=== PATIENT | female | born 1965 | race Caucasian/White ===

== ENCOUNTER → 2017-05-31 | Outpatient (CLI) | payer OTHER ==
--- NOTE | 2017-05-31 10:49 | MR ---
EXAMINATION TYPE: MR lumbar spine wo con DATE OF EXAM: 05/31/2017 COMPARISON: NONE HISTORY: Low back pain per order. Pain for 5 years going into left lower extremity per patient. TECHNIQUE: Multiplanar, multisequence imaging of the lumbar spine is performed without IV contrast. FINDINGS: Survey images shows artifact left pelvis possibly from hip prosthesis. Sagittal images of t he lumbar spine show vertebral body heights and alignment to appear satisfactory. Multilevel disc shonna iccation is present. There is moderate to advanced disc space narrowing with heterogeneous diminished T1 and increased T2 signal consistent with Modic type I degenerative change L3-L4 level with fairly moderate anterior spurring. Posterior disc herniation is seen at this level on sagittal images. Smal l posterior disc herniation noted L4-L5 level on sagittal images. The conus medullaris is normal in p osition and signal ending at inferior L1 level. The bone marrow signal intensity is otherwise within normal limits. Axial images show the T12-L1 and L1-L2 levels all to appear within normal limits. Axial images at L2-L3 level show small focal left foraminal disc protrusion causing mild left-sided a nterior inferior neural foraminal narrowing on axial image 18 and sagittal image 4. Spinal canal is p reserved. Right-sided neural foramen is patent. Axial images at L3-L4 level show moderate broad disc bulge effacing anterior thecal sac and causing m oderate to severe right and moderate left-sided anterior inferior neural foraminal narrowing. Encroac hment on right L3 nerve is seen on sagittal image 11. There is possible encroachment along inferior m argin left L3 nerve on sagittal image 2. Axial images at the L4-L5 level show mild broad disc bulge with left lateral disc protrusion componen t, there is mild to moderate bilateral facet degenerative change. There is asymmetric moderate left-s ided anterior inferior neural foraminal narrowing. There is probable encroachment along the anterior inferior left L4 nerve on sagittal image 3. Right-sided neural foramen is patent. Axial images at L5-S1 level show mild facet degenerative changes bilaterally. There is central disc p rotrusion seen but spinal canal is preserved and bilateral neural foramina are patent. Gallbladder has distended margins. No intraluminal gallstones are clearly seen. IMPRESSION: Multilevel degenerative changes in lumbar spine as detailed above, most prominent finding s L3-L4 level encroaching right L3 nerve is observed. There is suggestion of inferior encroachment le ft L3 and L4 nerves at L3-L4 and L4-L5 levels due to disc herniations.
== END | disposition home or self-care (01) ==
LOC: RADMRIMAIN 09:49
PROVIDERS: ATTEND Physician Assistant
DX: M51.26 Other intervertebral disc displacement, lumbar region (principal); M47.816 Spondylosis without myelopathy or radiculopathy, lumbar region
CPT/HCPCS: 72148

== ENCOUNTER 2017-09-21 00:22 | Emergency (ER) | payer OTHER ==
[2017-09-21 01:57] LABS: Amphetamine Screen,Urine Not Detected (NotDetected); Barbiturate Screen,Urine Not Detected (NotDetected); Benzodiazepines Screen,Urine Detected (NotDetected); Cocaine Screen,Urine Not Detected (NotDetected); Methadone Screen, Urine Not Detected (NotDetected); Opiate Screen,Urine Not Detected (NotDetected); Oxycodone Screen, Urine Not Detected (NotDetected); Phencyclidine Screen,Urine Not Detected (NotDetected); Tricyclic Antidepressant,Urine Not Detected (NotDetected); Urn Cannabinoid Scrn Detected (NotDetected)
--- NOTE | 2017-09-21 02:14 | XR ---
EXAMINATION TYPE: XR Hip LT and AP Pelvis DATE OF EXAM: 09/21/2017 COMPARISON: NONE HISTORY: Left hip pain TECHNIQUE: 3 views FINDINGS: There is collapse of the femoral head consistent with chronic avascular necrosis. There is sclerosis and subchondral cystic change on both sides of the irregular joint space. The right proximal femur an d hip joint are intact. There is a plate with screws fixating the left acetabulum. The pelvic ring is intact. I see no acute fracture. CONCLUSION: There is apparent old left acetabular fracture. Collapse of the left femoral head. No acute fracture seen.
[2017-09-21 03:21] LABS: Basophils # (A) 0.1 k/uL (0-0.2); Basophils % (A) 1 %; Eosinophils # (A) 0.3 k/uL (0-0.7); Eosinophils % (A) 5 %; HCT 47.6 % (34.0-46.0); HGB 15.3 gm/dL (11.4-16.0); Lymphocytes # (A) 1.9 k/uL (1.0-4.8); Lymphocytes % (A) 35 %; MCH 29.4 pg (25.0-35.0); MCHC 32.2 g/dL (31.0-37.0); MCV 91.5 fL (80.0-100.0); Mean Platelet Volume 7.1; Monocytes # (A) 0.3 k/uL (0-1.0); Monocytes % (A) 5 %; Neutrophils # (A) 2.8 k/uL (1.3-7.7); Neutrophils % (A) 51 %; Platelet Count 266 k/uL (150-450); RDW 13.7 % (11.5-15.5); WBC 5.5 k/uL (3.8-10.6)
[2017-09-21 03:26] LABS: Amylase 38 U/L (30-110); Lipase 94 U/L (23-300)
[2017-09-21 03:28] LABS: Alcohol 107 mg/dL
[2017-09-21 03:37] LABS: ALT 28 U/L (9-52); AST 27 U/L (14-36); Albumin 4.2 g/dL (3.5-5.0); Alkaline Phosphatase 80 U/L (38-126); Anion Gap 19 mmol/L; Blood Urea Nitrogen 11 mg/dL (7-17); Calcium 9.9 mg/dL (8.4-10.2); Carbon Dioxide 18 mmol/L (22-30); Chloride 112 mmol/L (98-107); Glucose 89 mg/dL (74-99); Potassium 3.7 mmol/L (3.5-5.1); Sodium 149 mmol/L (137-145); Total Bilirubin 0.2 mg/dL (0.2-1.3); Total Protein 7.3 g/dL (6.3-8.2)
[2017-09-21 06:18] VITALS: BP 135/79; PULSE 100; TEMP 98.2
[2017-09-21] MEDS ORDERED: IBUPROFEN 600 MG TAB PO STA (06:24)
[2017-09-21] MEDS ORDERED: SODIUM CHLORIDE 0.9% 500 ML IV STA (06:24)
[2017-09-21 06:27] VITALS: RESP 14
--- NOTE | 2017-09-21 06:46 | ED ---
Psych HPI - General Chief Complaint: Psychiatric Symptoms Stated Complaint: pain all over Time Seen by Provider: 09/21/17 01:09 Source: patient Mode of arrival: wheelchair - History of Present Illness Initial Comments: This patient is 52-year-old woman presenting for psychiatric evaluation. The patient states that she is becoming concerned about her drinking. She has also had some thoughts recently that she would be better off area she states that underlying all this is that she has chronic left hip pain following a fracture of her left acetabulum around 2 years ago. Patient states that she was initially on narcotic pain medicine but that this was stopped and number of months ago, and she is currently using alcohol to help her deal with the pain. She is drinking around a pint of tequila per day. The patient states she has not attempted to harm herself nor does she have an active suicidal plan but she does passively feel that she may be better off . MD Complaint: feels depressed -: month(s) Associated Psychiatric Symptoms: depression Quality: constant Improves With: none Worsens With: none Context: recent alcohol abuse Associated Symptoms: denies other symptoms - Related Data Home Medications Medication Instructions Recorded Confirmed Butalb/Acetaminophen/Caffeine 1 each PO TID 12/26/13 12/26/13 [Fioricet 50-325-40 mg Tablet] DULoxetine HCL [Cymbalta] 60 mg PO BID 12/26/13 12/26/13 Dextroamphetamine/Amphetamine 10 mg PO DAILY 12/26/13 12/26/13 [Adderall] Gabapentin [Neurontin] 300 mg PO TID 12/26/13 12/26/13 Hydrocodone/Acetaminophen [Vicodin 1 each PO Q6HR PRN 12/26/13 12/26/13 5-300 mg Tablet] traMADol HCL [Ultram] 50 mg PO Q6HR PRN 12/26/13 12/26/13 Allergies Allergy/AdvReac Type Severity Reaction Status Date / Time No Known Allergies Allergy Verified 12/26/13 00:56 Review of Systems ROS Statement: Those systems with pertinent positive or pertinent negative responses have been documented in the HPI. ROS Other: All systems not noted in ROS Statement are negative. Constitutional: Denies: fever, chills, weakness Respiratory: Denies: cough, dyspnea Cardiovascular: Denies: chest pain, palpitations Gastrointestinal: Denies: abdominal pain, vomiting, diarrhea Musculoskeletal: Reports: as per HPI, arthralgia. Denies: back pain Skin: Denies: rash Neurological: Denies: headache, weakness, numbness Past Medical History Past Medical History: Diabetes Mellitus Additional Past Medical History / Comment(s): back pain, migraines, fibromyalgia History of Any Multi-Drug Resistant Organisms: Unobtainable Past Surgical History: Orthopedic Surgery Past Psychological History: Anxiety, Depression Smoking Status: Current every day smoker Past Alcohol Use History: Daily Past Drug Use History: Cocaine General Exam Limitations: no limitations General appearance: alert, in no apparent distress, appears intoxicated Head exam: Present: atraumatic, normocephalic Eye exam: Present: normal appearance. Absent: scleral icterus, conjunctival injection Neck exam: Present: normal inspection, full ROM Respiratory exam: Present: normal lung sounds bilaterally. Absent: respiratory distress, wheezes, rales, rhonchi, stridor Cardiovascular Exam: Present: regular rate, normal rhythm, normal heart sounds. Absent: systolic murmur, diastolic murmur, rubs, gallop GI/Abdominal exam: Present: soft. Absent: distended, tenderness, guarding, rebound, rigid, mass Extremities exam: Present: normal inspection, normal capillary refill. Absent: full ROM (Limited range of motion left hip), pedal edema, calf tenderness Back exam: Present: normal inspection. Absent: CVA tenderness (R), CVA tenderness (L) Neurological exam: Present: alert Psychiatric exam: Present: depressed, anxious, suicidal ideation. Absent: flat affect, manic, homicidal ideation Skin exam: Present: warm, dry, intact, normal color. Absent: rash Course Vital Signs 09/21/17 09/21/17 09/21/17 00:47 03:00 06:00 Temperature 97.3 F L 98.2 F Pulse Rate 98 95 100 Respiratory 16 16 16 Rate Blood Pressure 139/82 130/66 135/79 O2 Sat by Pulse 97 98 96 Oximetry 09/21/17 06:10 Temperature 98.2 F Pulse Rate 100 Respiratory 14 Rate Blood Pressure 135/79 O2 Sat by Pulse 96 Oximetry Medical Decision Making - Lab Data Result diagrams: 09/21/17 02:50 09/21/17 02:50 Lab Results 09/21/17 09/21/17 09/21/17 Range/Units 01:36 02:50 02:50 WBC 5.5 (3.8-10.6) k/uL RBC 5.20 (3.80-5.40) m/uL Hgb 15.3 (11.4-16.0) gm/dL Hct 47.6 H (34.0-46.0) % MCV 91.5 (80.0-100.0) fL MCH 29.4 (25.0-35.0) pg MCHC 32.2 (31.0-37.0) g/dL RDW 13.7 (11.5-15.5) % Plt Count 266 (150-450) k/uL Neutrophils % 51 % Lymphocytes % 35 % Monocytes % 5 % Eosinophils % 5 % Basophils % 1 % Neutrophils # 2.8 (1.3-7.7) k/uL Lymphocytes # 1.9 (1.0-4.8) k/uL Monocytes # 0.3 (0-1.0) k/uL Eosinophils # 0.3 (0-0.7) k/uL Basophils # 0.1 (0-0.2) k/uL Sodium (137-145) mmol/L Potassium (3.5-5.1) mmol/L Chloride (98-107) mmol/L Carbon Dioxide (22-30) mmol/L Anion Gap mmol/L BUN (7-17) mg/dL Creatinine (0.52-1.04) mg/dL Est GFR (CKD-EPI)AfAm (>60 ml/min/1.73 sqM) Est GFR (CKD-EPI)NonAf (>60 ml/min/1.73 sqM) Glucose (74-99) mg/dL Calcium (8.4-10.2) mg/dL Total Bilirubin (0.2-1.3) mg/dL AST (14-36) U/L ALT (9-52) U/L Alkaline Phosphatase (38-126) U/L Total Protein (6.3-8.2) g/dL Albumin (3.5-5.0) g/dL Amylase 38 (30-110) U/L Lipase 94 (23-300) U/L Urine Opiates Screen Not Detected (NotDetected) Ur Oxycodone Screen Not Detected (NotDetected) Urine Methadone Screen Not Detected (NotDetected) Ur Propoxyphene Screen Not Detected (NotDetected) Ur Barbiturates Screen Not Detected (NotDetected) U Tricyclic Antidepress Not Detected (NotDetected) Ur Phencyclidine Scrn Not Detected (NotDetected) Ur Amphetamines Screen Not Detected (NotDetected) U Methamphetamines Scrn Not Detected (NotDetected) U Benzodiazepines Scrn Detected H (NotDetected) Urine Cocaine Screen Not Detected (NotDetected) U Marijuana (THC) Screen Detected H (NotDetected) Serum Alcohol 107 mg/dL 09/21/17 Range/Units 02:50 WBC (3.8-10.6) k/uL RBC (3.80-5.40) m/uL Hgb (11.4-16.0) gm/dL Hct (34.0-46.0) % MCV (80.0-100.0) fL MCH (25.0-35.0) pg MCHC (31.0-37.0) g/dL RDW (11.5-15.5) % Plt Count (150-450) k/uL Neutrophils % % Lymphocytes % % Monocytes % % Eosinophils % % Basophils % % Neutrophils # (1.3-7.7) k/uL Lymphocytes # (1.0-4.8) k/uL Monocytes # (0-1.0) k/uL Eosinophils # (0-0.7) k/uL Basophils # (0-0.2) k/uL Sodium 149 H (137-145) mmol/L Potassium 3.7 (3.5-5.1) mmol/L Chloride 112 H (98-107) mmol/L Carbon Dioxide 18 L (22-30) mmol/L Anion Gap 19 mmol/L BUN 11 (7-17) mg/dL Creatinine 0.56 (0.52-1.04) mg/dL Est GFR (CKD-EPI)AfAm >90 (>60 ml/min/1.73 sqM) Est GFR (CKD-EPI)NonAf >90 (>60 ml/min/1.73 sqM) Glucose 89 (74-99) mg/dL Calcium 9.9 (8.4-10.2) mg/dL Total Bilirubin 0.2 (0.2-1.3) mg/dL AST 27 (14-36) U/L ALT 28 (9-52) U/L Alkaline Phosphatase 80 (38-126) U/L Total Protein 7.3 (6.3-8.2) g/dL Albumin 4.2 (3.5-5.0) g/dL Amylase (30-110) U/L Lipase (23-300) U/L Urine Opiates Screen (NotDetected) Ur Oxycodone Screen (NotDetected) Urine Methadone Screen (NotDetected) Ur Propoxyphene Screen (NotDetected) Ur Barbiturates Screen (NotDetected) U Tricyclic Antidepress (NotDetected) Ur Phencyclidine Scrn (NotDetected) Ur Amphetamines Screen (NotDetected) U Methamphetamines Scrn (NotDetected) U Benzodiazepines Scrn (NotDetected) Urine Cocaine Screen (NotDetected) U Marijuana (THC) Screen (NotDetected) Serum Alcohol mg/dL Disposition Clinical Impression: Mood disorder, Alcohol intoxication, Chronic left hip pain Disposition: HOME SELF-CARE Condition: Fair Instructions: Mood Disorders (ED) Is patient prescribed a controlled substance at d/c from ED?: No Referrals: Araceli Elizabeth MD [Primary Care Provider] - 1-2 days
== END 2017-09-21 07:22 | disposition home or self-care (01) ==
LOC: EC 00:22
DX: F32.9 Major depressive disorder, single episode, unspecified (principal); F10.120 Alcohol abuse with intoxication, uncomplicated; M25.552 Pain in left hip; G89.29 Other chronic pain; M79.7 Fibromyalgia; G43.909 Migraine, unspecified, not intractable, without status migrainosus; F41.9 Anxiety disorder, unspecified; F17.200 Nicotine dependence, unspecified, uncomplicated; Z86.69 Personal history of other diseases of the nervous system and sense organs; Z79.899 Other long term (current) drug therapy; Z87.81 Personal history of (healed) traumatic fracture
CPT/HCPCS: 36415; 73502; 80053; 80306; 80320; 82075; 82150; 83690; 85025; 96360; 99284

== ENCOUNTER 2021-11-28 07:11 | Emergency (ER) | payer OTHER ==
[2021-11-28 07:27] VITALS: RESP 18; TEMP 99
[2021-11-28] MEDS ORDERED: MORPHINE SULFATE 4 MG/ML SYRINGE IV STA (07:37)
[2021-11-28] MEDS ORDERED: diphenhydrAMINE 50 MG/ML 1 ML VIAL IVP STA (07:37)
[2021-11-28] MEDS ORDERED: PANTOPRAZOLE 40 MG/10 ML VIAL IVP STA (07:37)
[2021-11-28] MEDS ORDERED: SODIUM CHLORIDE 0.9% 1,000 ML IV STA (07:37)
[2021-11-28] MEDS ORDERED: ONDANSETRON 4 MG/2 ML VIAL IVP STA (07:37)
[2021-11-28 07:55] LABS: Basophils # (A) 0.1 k/uL (0-0.2); Basophils % (A) 2 %; Eosinophils # (A) 0.1 k/uL (0-0.7); Eosinophils % (A) 2 %; HCT 44.9 % (34.0-46.0); HGB 14.8 gm/dL (11.4-16.0); Lymphocytes # (A) 0.9 k/uL (1.0-4.8); Lymphocytes % (A) 18 %; MCH 33.6 pg (25.0-35.0); MCV 101.6 fL (80.0-100.0); Macrocytosis Slight; Mean Platelet Volume 7.5; Monocytes # (A) 0.6 k/uL (0-1.0); Monocytes % (A) 11 %; Neutrophils # (A) 3.5 k/uL (1.3-7.7); Neutrophils % (A) 65 %; Platelet Count 233 k/uL (150-450); RBC 4.42 m/uL (3.80-5.40); RDW 15.1 % (11.5-15.5); WBC 5.3 k/uL (3.8-10.6)
[2021-11-28 08:05] LABS: ALT 101 U/L (4-34); AST 182 U/L (14-36); African American GFR (CKD) >90 (>60 ml/min/1.73 sqM); Albumin 4.8 g/dL (3.5-5.0); Alcohol <10 mg/dL; Alkaline Phosphatase 109 U/L (38-126); Amylase 59 U/L (30-110); Anion Gap 8 mmol/L; Blood Urea Nitrogen 6 mg/dL (7-17); Calcium 9.5 mg/dL (8.4-10.2); Carbon Dioxide 22 mmol/L (22-30); Chloride 105 mmol/L (98-107); Glucose 106 mg/dL (74-99); Lipase 188 U/L (23-300); Non-African American GFR(CKD) >90 (>60 ml/min/1.73 sqM); Potassium 3.9 mmol/L (3.5-5.1); Sodium 135 mmol/L (137-145); Total Bilirubin 0.4 mg/dL (0.2-1.3); Total Protein 7.5 g/dL (6.3-8.2)
[2021-11-28 08:06] LABS: INR 0.9 (<1.2); Partial Thromboplastin Time 22.8 sec (22.0-30.0); Prothrombin Time 9.8 sec (9.0-12.0)
--- NOTE | 2021-11-28 08:42 | US ---
EXAMINATION TYPE: US gallbladder DATE OF EXAM: 11/28/2021 COMPARISON: NONE CLINICAL HISTORY: n/v epigastric/RUQ abd pain. nausea and vomiting EXAM MEASUREMENTS: Liver Length: 15.2 cm Gallbladder Wall: .1 cm CBD: .4 cm Right Kidney: 10.2 x 4.1 x 4.0 cm Pancreas: Duct visualized .2 cm. Liver: wnl Gallbladder: No stones seen Evidence for sonographic Hylton's sign: No CBD: wnl Right Kidney: wnl IMPRESSION: No discrete abnormality seen.
[2021-11-28] MEDS ORDERED: MAG HYDROX/AL HYDROX/SIMETH 30 ML, HYOSCYAMINE ELIXIR 10 ML, LIDOCAINE VISCOUS 2% 10 ML PO STA ×3 (10:17)
--- NOTE | 2021-11-28 10:17 | CT ---
EXAMINATION TYPE: CT abdomen pelvis w con DATE OF EXAM: 11/28/2021 COMPARISON: None HISTORY: Abdominal pain CT DLP: 569.7 mGycm CONTRAST: CT scan of the abdomen and pelvis is performed without Oral Contrast and with IV Contrast, patient in jected with 100 mL of Isovue 300. FINDINGS: LUNG BASES-: Small area of nodular infiltrate left lower lobe posteriorly. LIVER/GB: No calcified gallstones. Mild hepatic steatosis. No space occupying hepatic lesion. Bili reji tree is of normal caliber. PANCREAS: No inflammation. No distinct mass. SPLEEN: No splenic enlargement. No lesion seen. ADRENALS: No nodule. No thickening. KIDNEYS/BLADDER: No hydronephrosis. No nephrolithiasis. No distinct renal mass. Urinary bladder g rossly unremarkable. BOWEL: Normal appendix. Wall thickening gastric pylorus could reflect underlying gastritis correlate clinically. Otherwise Normal bowel caliber or inflammation. GENITAL ORGANS: Hysterectomy changes noted. No adnexal masses seen. LYMPH NODES: No greater than 1cm abdominal or pelvic lymph nodes are appreciated. AORTA: No significant abnormality. OSSEOUS STRUCTURES: Postoperative change of the left hemipelvis. Streak artifacts limits evaluation o f the pelvis. Remote fractures right sided pubic rami. Severe degenerative change L4-5. OTHER: No significant additional abnormality is seen. IMPRESSION: 1. Wall thickening gastric pylorus could reflect underlying gastritis correlate clinically. 2.Small area of nodular infiltrate left lower lobe posteriorly.
--- NOTE | 2021-11-28 10:18 | ED ---
General Adult HPI - General Chief complaint: Nausea/Vomiting/Diarrhea Stated complaint: Nausea/abd pain/vomiting Time Seen by Provider: 11/28/21 07:30 Source: patient, RN notes reviewed, old records reviewed Mode of arrival: ambulatory Limitations: no limitations - History of Present Illness Initial comments: Patient is a 56-year-old female with no significant past medical history except for polysubstance abuse presents emergency Department complaining of chronic epigastric abdominal discomfort associated with nausea and vomiting. States this is on a daily basis. Nurse's nonbilious emesis. Still tolerates oral intake. Denies any diarrhea. Denies any fevers, chills, sick contacts, chest pain. His no other acute complaints at this time. Was brought to the emergency department by a friend today after suffering to this for the last 6 months. No acute change in symptoms. No other acute complaints at this time. Denies any fevers or chills. Has not followed up with her PCP. Denies any history of intra-abdominal surgery. - Related Data Home Medications Medication Instructions Recorded Confirmed Butalb/Acetaminophen/Caffeine 1 each PO TID 12/26/13 12/26/13 [Fioricet 50-325-40 mg Tablet] DULoxetine HCL [Cymbalta] 60 mg PO BID 12/26/13 12/26/13 Dextroamphetamine/Amphetamine 10 mg PO DAILY 12/26/13 12/26/13 [Adderall] Gabapentin [Neurontin] 300 mg PO TID 12/26/13 12/26/13 Hydrocodone/Acetaminophen [Vicodin 1 each PO Q6HR PRN 12/26/13 12/26/13 5-300 mg Tablet] traMADol HCL [Ultram] 50 mg PO Q6HR PRN 12/26/13 12/26/13 Previous Rx's Medication Instructions Recorded Famotidine 20 mg PO DAILY 14 Days #14 tablet 11/28/21 Mag Hydrox/Al Hydrox/Simeth 30 ml PO BID #300 ml 11/28/21 [Maalox] Ondansetron Odt [Zofran Odt] 4 mg PO Q8HR PRN 3 Days #9 tab 11/28/21 Allergies Allergy/AdvReac Type Severity Reaction Status Date / Time No Known Allergies Allergy Verified 11/28/21 07:24 Review of Systems ROS Statement: Those systems with pertinent positive or pertinent negative responses have been documented in the HPI. Review of Systems: CONST: Denies fever EYES: Denies blurry vision ENT: Denies nasal congestion C/V: Denies Chest pain RESP: Denies shortness of breath GI: Endorses abdominal pain : Denies dysuria SKIN: Denies rash. MSK: Denies joint pain. NEURO: Denies headache ROS Other: All systems not noted in ROS Statement are negative. Past Medical History Past Medical History: Diabetes Mellitus Additional Past Medical History / Comment(s): back pain, migraines, fibromyalgia History of Any Multi-Drug Resistant Organisms: None Reported Past Surgical History: Orthopedic Surgery Past Psychological History: Anxiety, Depression Smoking Status: Current every day smoker Past Alcohol Use History: Daily Past Drug Use History: Cocaine, Marijuana General Exam - General Exam Comments Initial Comments: General: Appears in no acute distress. HEAD: Normal with no signs of head trauma. EYES: PERRLA, EOMI, conjunctiva normal, no discharge. ENT: Hearing grossly intact, normal oropharynx. RESPIRATORY: Clear breath sounds bilaterally. No wheezes, rales, or rhonchi. C/V: Regular rate and rhythm. S1 and S2 auscultated, no edema, peripheral pulses 2+ and intact throughout ABD: Abdomen is soft, nondistended. Mild tenderness to palpation in the epigastric region. No guarding. No rebound tenderness. No peritoneal signs. EXT: Normal range of motion, no obvious deformity SKIN: No rashes or lesions observed on exposed skin. NEURO: Alert and oriented 4. No focal deficits. Limitations: no limitations Course Vital Signs 11/28/21 11/28/21 07:25 10:27 Temperature 99 F Pulse Rate 109 H 83 Respiratory 18 18 Rate Blood Pressure 156/79 145/89 O2 Sat by Pulse 96 99 Oximetry Medical Decision Making - Medical Decision Making Based on the patient's presentation and physical exam, I'm concerned for acute intra-abdominal process for her cannot rule out atypical ACS presentation. Therefore we will obtain abdominal laboratory studies, cardiac workup. She was in agreement with this plan. Will be symptomatically treated. Vital signs within normal limits and stable. EKG shows no signs of acute ischemia. Laboratory studies are remarkable for slightly increased AST and ALT of 182 and 101. This is in the setting of chronic alcohol use. Troponin is undetectable. Remainder the labs are unremarkable. Patient's chest x-ray reveals a left lower lobe home and a nodule. Call that her ultrasound is unremarkable. Abdominal and pelvic CT rev eals findings suggestive of gastritis in addition to the pulmonary nodule. On reevaluation, I spoke to patient regarding the findings. She is feeling improved. She is tolerating oral intake. Would like to go home and not wait for the urinalysis which I think is reasonable. I updated her on her pulmonary nodule as well as the suspected diagnosis of gastritis. Recommended decreasing the polysubstance abuse. She was in agreement this plan. I will provide the patient with a prescription for Zofran, Maalox, famotidine. I instructed the patient to follow up with their PCP in the next 3 days. [I provided contact information for follow up with] PCP, Gabriele. I explained that the patient should return to the emergency department if they experience any worsening symptoms. Strict return precautions were discussed with the patient. The patient expressed understanding of these instructions. I answered all questions that the patient had. The patient was discharged home in good con dition with their prescriptions and follow up information. - Lab Data Result diagrams: 11/28/21 07:52 11/28/21 07:52 Lab Results 11/28/21 11/28/21 11/28/21 Range/Units 07:52 07:52 07:52 WBC 5.3 (3.8-10.6) k/uL RBC 4.42 (3.80-5.40) m/uL Hgb 14.8 (11.4-16.0) gm/dL Hct 44.9 (34.0-46.0) % MCV 101.6 H (80.0-100.0) fL MCH 33.6 (25.0-35.0) pg MCHC 33.0 (31.0-37.0) g/dL RDW 15.1 (11.5-15.5) % Plt Count 233 (150-450) k/uL MPV 7.5 Neutrophils % 65 % Lymphocytes % 18 % Monocytes % 11 % Eosinophils % 2 % Basophils % 2 % Neutrophils # 3.5 (1.3-7.7) k/uL Lymphocytes # 0.9 L (1.0-4.8) k/uL Monocytes # 0.6 (0-1.0) k/uL Eosinophils # 0.1 (0-0.7) k/uL Basophils # 0.1 (0-0.2) k/uL Macrocytosis Slight PT 9.8 (9.0-12.0) sec INR 0.9 (<1.2) APTT 22.8 (22.0-30.0) sec Sodium 135 L (137-145) mmol/L Potassium 3.9 (3.5-5.1) mmol/L Chloride 105 (98-107) mmol/L Carbon Dioxide 22 (22-30) mmol/L Anion Gap 8 mmol/L BUN 6 L (7-17) mg/dL Creatinine 0.64 (0.52-1.04) mg/dL Est GFR (CKD-EPI)AfAm >90 (>60 ml/min/1.73 sqM) Est GFR (CKD-EPI)NonAf >90 (>60 ml/min/1.73 sqM) Glucose 106 H (74-99) mg/dL Plasma Lactic Acid Nic (0.7-2.0) mmol/L Calcium 9.5 (8.4-10.2) mg/dL Total Bilirubin 0.4 (0.2-1.3) mg/dL AST 182 H (14-36) U/L ALT 101 H (4-34) U/L Alkaline Phosphatase 109 (38-126) U/L Troponin I (0.000-0.034) ng/mL Total Protein 7.5 (6.3-8.2) g/dL Albumin 4.8 (3.5-5.0) g/dL Amylase 59 (30-110) U/L Lipase 188 (23-300) U/L Serum Alcohol <10 mg/dL 11/28/21 11/28/21 Range/Units 07:52 07:52 WBC (3.8-10.6) k/uL RBC (3.80-5.40) m/uL Hgb (11.4-16.0) gm/dL Hct (34.0-46.0) % MCV (80.0-100.0) fL MCH (25.0-35.0) pg MCHC (31.0-37.0) g/dL RDW (11.5-15.5) % Plt Count (150-450) k/uL MPV Neutrophils % % Lymphocytes % % Monocytes % % Eosinophils % % Basophils % % Neutrophils # (1.3-7.7) k/uL Lymphocytes # (1.0-4.8) k/uL Monocytes # (0-1.0) k/uL Eosinophils # (0-0.7) k/uL Basophils # (0-0.2) k/uL Macrocytosis PT (9.0-12.0) sec INR (<1.2) APTT (22.0-30.0) sec Sodium (137-145) mmol/L Potassium (3.5-5.1) mmol/L Chloride (98-107) mmol/L Carbon Dioxide (22-30) mmol/L Anion Gap mmol/L BUN (7-17) mg/dL Creatinine (0.52-1.04) mg/dL Est GFR (CKD-EPI)AfAm (>60 ml/min/1.73 sqM) Est GFR (CKD-EPI)NonAf (>60 ml/min/1.73 sqM) Glucose (74-99) mg/dL Plasma Lactic Acid Nic 1.2 (0.7-2.0) mmol/L Calcium (8.4-10.2) mg/dL Total Bilirubin (0.2-1.3) mg/dL AST (14-36) U/L ALT (4-34) U/L Alkaline Phosphatase (38-126) U/L Troponin I <0.012 (0.000-0.034) ng/mL Total Protein (6.3-8.2) g/dL Albumin (3.5-5.0) g/dL Amylase (30-110) U/L Lipase (23-300) U/L Serum Alcohol mg/dL - EKG Data -: EKG Interpreted by Me EKG Comments: 12-lead Electrocardiogram Interpretation Note EKG was reviewed and interpreted by myself. 12-lead ECG performed at 0754 is interpreted by me as revealing normal sinus rhythm at a rate of 90 beats per minute. [place] is normal.. ND Intervals 101 ms, QRS duration is 87 ms, QTc is 420 ms.. There were no ST or T wave abnormalities to suggest myocardial ischemia or injury. R wave progression across the precordium was satisfactory. By my interpretation this EKG is non-diagnostic for acute ischemia. Disposition Clinical Impression: Nausea & vomiting, Gastritis, Pulmonary nodule Disposition: HOME SELF-CARE Condition: Good Instructions (If sedation given, give patient instructions): Acute Nausea and Vomiting (ED), Pulmonary Nodules (ED) Prescriptions: Famotidine 20 mg PO DAILY 14 Days #14 tablet Mag Hydrox/Al Hydrox/Simeth [Maalox] 30 ml PO BID #300 ml Ondansetron Odt [Zofran Odt] 4 mg PO Q8HR PRN 3 Days #9 tab PRN Reason: Nausea Is patient prescribed a controlled substance at d/c from ED?: No Referrals: None,Stated [Primary Care Provider] - 1-2 days Tj Donato [STAFF PHYSICIAN] - 1-2 days Arely Suazo MD [STAFF PHYSICIAN] - 1-2 days Time of Disposition: 10:15
--- NOTE | 2021-11-28 10:19 | XR ---
EXAMINATION TYPE: XR chest 2V DATE OF EXAM: 11/28/2021 COMPARISON: 12/26/2013 HISTORY: Shortness of breath TECHNIQUE: Frontal and lateral views of the chest are obtained. FINDINGS: Scattered senescent parenchymal changes noted. Hyperinflation compatible with COPD. No evidence for infiltrate. No evidence for atelectasis. Heart size is stable. Mediastinal structures are stable and grossly unremarkable. No evidence for hilar prominence. Degenerative changes dorsal spine. IMPRESSION: 1. No evidence for acute pulmonary disease.
[2021-11-28 10:34] VITALS: BP 145/89; PULSE 83
== END 2021-11-28 11:21 | disposition home or self-care (01) ==
LOC: EC 07:11
DX: F19.10 Other psychoactive substance abuse, uncomplicated (principal); K29.70 Gastritis, unspecified, without bleeding; E11.9 Type 2 diabetes mellitus without complications; F17.200 Nicotine dependence, unspecified, uncomplicated; R11.2 Nausea with vomiting, unspecified
CPT/HCPCS: 36415; 93005; 80053; 82150; 83605; 83690; 84484; 85025; 85610; 85730; 71046; 76705; 74177; 99284; 96374; 96375; 96361; G0480; J2270; J1200; J2405; C9113; Q9967; 80320

== ENCOUNTER 2023-10-19 19:59 | Inpatient (IN) | payer OTHER ==
[2023-10-19] MEDS: LORazepam 2 MG/ML INJ IM STA (20:25)
[2023-10-19 21:29] LABS: Basophils % (A) 0 %; Eosinophils # (A) 0.2 k/uL (0-0.7); Eosinophils % (A) 2 %; HCT 41.3 % (34.0-46.0); HGB 14.3 gm/dL (11.4-16.0); Lymphocytes # (A) 0.5 k/uL (1.0-4.8); Lymphocytes % (A) 6 %; MCH 33.3 pg (25.0-35.0); MCHC 34.7 g/dL (31.0-37.0); MCV 96.1 fL (80.0-100.0); Mean Platelet Volume 8.7; Monocytes # (A) 0.4 k/uL (0-1.0); Monocytes % (A) 5 %; Neutrophils # (A) 7.9 k/uL (1.3-7.7); Neutrophils % (A) 87 %; Platelet Count 178 k/uL (150-450); WBC 9.1 k/uL (3.8-10.6)
--- NOTE | 2023-10-19 21:32 | ED ---
Anxiety HPI - General Source: patient, EMS, RN notes reviewed Mode of arrival: EMS <KathyGallo - Last Filed: 10/20/23 00:23> <JamessooArabella Ernesto - Last Filed: 10/20/23 00:36> - General Chief Complaint: Anxiety Stated Complaint: Psych Time Seen by Provider: 10/19/23 20:09 - History of Present Illness Initial Comments: 58-year-old female presenting to the ED with complaints of anxiety. Reportedly, patient called EMS secondary to anxiety however was noted to EMS that she has been feeling short of breath and has had some nausea and vomiting today. Prior to my evaluation patient was reported to have displayed seizure like activity. Patient given 2 mg of Ativan IM. Patient currently altered and does not provide any history. is not at bedside to provide any additional history at this time. Patient's has returned. states that patient was not feeling well today noting nausea, vomiting and reports that the patient was saying odd things however was still verbally communicative. This time, reports that the patient i s not herself at all. Patient is still nonverbal and will not provide any additional history. Reports that the patient drinks 6 beers daily. He does state that the patient appears more yellow than usual. (Gallo Chavez) - Related Data Home Medications: Home Medications Medication Instructions Recorded Confirmed Butalb/Acetaminophen/Caffeine 1 each PO TID 12/26/13 12/26/13 [Fioricet 50-325-40 mg Tablet] DULoxetine HCL [Cymbalta] 60 mg PO BID 12/26/13 12/26/13 Dextroamphetamine/Amphetamine 10 mg PO DAILY 12/26/13 12/26/13 [Adderall] Gabapentin [Neurontin] 300 mg PO TID 12/26/13 12/26/13 Hydrocodone/Acetaminophen [Vicodin 1 each PO Q6HR PRN 12/26/13 12/26/13 5-300 mg Tablet] traMADol HCL [Ultram] 50 mg PO Q6HR PRN 12/26/13 12/26/13 Previous Rx's Medication Instructions Recorded Famotidine 20 mg PO DAILY 14 Days #14 tablet 11/28/21 Mag Hydrox/Al Hydrox/Simeth 30 ml PO BID #300 ml 11/28/21 [Maalox] Ondansetron Odt [Zofran Odt] 4 mg PO Q8HR PRN 3 Days #9 tab 11/28/21 Allergies/Adverse Reactions: Allergies Allergy/AdvReac Type Severity Reaction Status Date / Time No Known Allergies Allergy Verified 10/19/23 20:43 Review of Systems ROS Other: All systems not noted in ROS Statement are negative. <Gallo Chavez - Last Filed: 10/20/23 00:23> ROS Other: All systems not noted in ROS Statement are negative. <Arabella Díaz - Last Filed: 10/20/23 00:36> ROS Statement: Those systems with pertinent positive or pertinent negative responses have been documented in the HPI. Past Medical History Past Medical History: Diabetes Mellitus Additional Past Medical History / Comment(s): back pain, migraines, fibromyalgianh, history of seizures when withdrawling from "tramadol" or another medicaiton "years ago" per 10/19/23 History of Any Multi-Drug Resistant Organisms: None Reported Past Surgical History: Orthopedic Surgery Past Psychological History: Anxiety, Depression Smoking Status: Current every day smoker Past Alcohol Use History: Daily Past Drug Use History: Cocaine, Marijuana <Gallo Chavez - Last Filed: 10/20/23 00:23> General Exam Limitations: altered mental status Eye exam: Absent: scleral icterus Neck exam: Present: normal inspection Respiratory exam: Present: normal lung sounds bilaterally Cardiovascular Exam: Present: regular rate GI/Abdominal exam: Present: soft Extremities exam: Present: normal inspection Back exam: Present: normal inspection Skin exam: Present: warm, dry <Gallo Chavez - Last Filed: 10/20/23 00:23> Course <Arabella Díaz - Last Filed: 10/20/23 00:36> Vital Signs 10/19/23 10/19/23 20:28 23:39 Temperature 97.7 F Pulse Rate 95 96 Respiratory 22 18 Rate Blood Pressure 187/115 145/79 O2 Sat by Pulse 99 97 Oximetry - Reevaluation(s) Reevaluation #1: Dr. Sam does accept the patient into the ICU 10/20/23 00:36 (Arabella Díaz) Medical Decision Making - Lab Data Result diagrams: 10/19/23 21:16 10/19/23 22:14 <Gallo Chavez - Last Filed: 10/20/23 00:23> - Lab Data Result diagrams: 10/19/23 21:16 10/19/23 22:14 <Arabella Díaz - Last Filed: 10/20/23 00:36> - Medical Decision Making Was pt. sent in by a medical professional or institution (, EDIE, BRAND MARKETING SPECIALIST, urgent care, hospital, or jail...) When possible be specific @ -No Did you speak to anyone other than the patient for history (EMS, parent, family, police, friend...)? What history was obtained from this source @ -Entirety of the history provided by the patient's . For further details procedure. Did you review nursing and triage notes (agree or disagree)? Why? @ -I reviewed and agree with nursing and triage notes Were old charts reviewed (outside hosp., previous admission, EMS record, old EKG, old radiological studies, urgent care reports/EKG's, jail records)? Report findings @ -No old charts were reviewed Differential Diagnosis (chest pain, altered mental status, abdominal pain women, abdominal pain men, vaginal bleeding, weakness, fever, dyspnea, syncope, heada delores, dizziness, GI bleed, back pain, seizure, CVA, palpatations, mental health, musculoskeletal)? @ -Differential Altered Mental Status: Hypoglycemia, DKA, hypercapnia, ETOH, overdose, CO poisoning, trauma, myxedema coma, HTN encephalopathy, infection, encephalitis, psychosis, intercranial hemorrhage, hepatic encephalopathy, meningitis, CVA, this is not meant to be an all-inclusive list EKG interpreted by me (3pts min.). @ -Pending X-rays interpreted by me (1pt min.). @ -Pending CT interpreted by me (1pt min.). @ -CT brain interpreted me which revealed no evidence of acute process. U/S interpreted by me (1pt. min.). @ -None done What testing was considered but not performed or refused? (CT, X-rays, U/S, labs)? Why? @ -None What meds were considered but not given or refused? Why? @ -None Did you discuss the management of the patient with other professionals (professionals i.e. , EDIE, BRAND MARKETING SPECIALIST, lab, RT, psych nurse, social media sr strategy manager, inspector plating, teacher, bank operations officer, home health care case manager)? Give summary @ -Case discussed with Dr. Finch who at this time recommends hypertonic saline at 35 mL an hour My attending physician will discuss case with methods analyst data processing. Was smoking cessation discussed for >3mins.? @ -No Was critical care preformed (if so, how long)? @ -Yes, 35 minutes Were there social determinants of health that impacted care today? How? (Homelessness, low income, unemployed, alcoholism, drug addiction, transportation, low edu. Level, literacy, decrease access to med. care, [facility], rehab)? @ -No Was there de-escalation of care discussed even if they declined (Discuss DNR or withdrawal of care, Hospice)? DNR status @ -No What co-morbidities impacted this encounter? (DM, HTN, Smoking, COPD, CAD, Cancer, CVA, ARF, Chemo, Hep., AIDS, mental health diagnosis, sleep apnea, morbid obesity)? @ -None Was patient admitted / discharged? Hospital course, mention meds given and route, prescriptions, significant lab abnormalities, going to OR and other pertinent info. @ -Admission 58-year-old female initially presented to the ED secondary to complaints of anxiety however also this morning noted some shortness of breath and nausea and vomiting to her . Patient is an alcoholic and drinks 6 beers daily. Upon arrival to the ED patient was noted to have a seizure 2 to 3 minutes. Since then, patient has been altered and has been unable to verbally communicate. Laboratory studies reviewed. CBC largely unremarkable however chemistry panel is significant for marked hyponatremia at 107, hypochloremia at 74, potassium 3.2. Initial lactic acid 4.1, AST 109, ALT 45, ammonia 58. CT brain was performed which revealed no evidence of acute process. Chest x-ray pending at this time. Spoke to nephrology who recommends hypertonic saline at 35 mL with sodium recheck in 3 hours. Patient will be admitted to the ICU secondary to hyponatremia requiring hypertonic saline. Undiagnosed new problem with uncertain prognosis? @ -No Drug Therapy requiring intensive monitoring for toxicity (Heparin, Nitro, Insulin, Cardizem)? @ -Yes, hypertonic saline Were any procedures done? @ -No Diagnosis/symptom? @ -Hyponatremia, altered mental status Acute, or Chronic, or Acute on Chronic? @ -Acute Uncomplicated (without systemic symptoms) or Complicated (systemic symptoms)? @ -Complicated Side effects of treatment? @ -No Exacerbation, Progression, or Severe Exacerbation? @ -No Poses a threat to life or bodily function? How? (Chest pain, [place], MT, pneumonia, PE, COPD, DKA, ARF, appy, cholecystitis, CVA, Diverticulitis, Homicidal, Suicidal, threat to staff... and all critical care pts) @ -Yes (Gallo Chavez) - Lab Data Lab Results 10/19/23 10/19/23 10/19/23 Range/Units 21:16 21:16 21:53 WBC 9.1 (3.8-10.6) k/uL RBC 4.30 (3.80-5.40) m/uL Hgb 14.3 (11.4-16.0) gm/dL Hct 41.3 (34.0-46.0) % MCV 96.1 (80.0-100.0) fL MCH 33.3 (25.0-35.0) pg MCHC 34.7 (31.0-37.0) g/dL RDW 12.0 (11.5-15.5) % Plt Count 178 (150-450) k/uL MPV 8.7 Neutrophils % 87 % Lymphocytes % 6 % Monocytes % 5 % Eosinophils % 2 % Basophils % 0 % Neutrophils # 7.9 H (1.3-7.7) k/uL Lymphocytes # 0.5 L (1.0-4.8) k/uL Monocytes # 0.4 (0-1.0) k/uL Eosinophils # 0.2 (0-0.7) k/uL Basophils # 0.0 (0-0.2) k/uL PT (10.0-12.5) sec INR (<1.2) APTT (22.0-30.0) sec Sodium (137-145) mmol/L Potassium (3.5-5.1) mmol/L Chloride (98-107) mmol/L Carbon Dioxide (22-30) mmol/L Anion Gap mmol/L BUN (7-17) mg/dL Creatinine (0.52-1.04) mg/dL Est GFR (CKD-EPI)AfAm (>60 ml/min/1.73 sqM) Est GFR (CKD-EPI)NonAf (>60 ml/min/1.73 sqM) Glucose (74-99) mg/dL Lactic Ac Sepsis Rflx Plasma Lactic Acid Nic 4.1 H* (0.7-2.0) mmol/L Calcium (8.4-10.2) mg/dL Total Bilirubin (0.2-1.3) mg/dL AST (14-36) U/L ALT (4-34) U/L Alkaline Phosphatase (38-126) U/L Ammonia 58 H (<30) umol/L Total Protein (6.3-8.2) g/dL Albumin (3.5-5.0) g/dL Influenza Type A (PCR) Not Detected (Not Detectd) Influenza Type B (PCR) Not Detected (Not Detectd) RSV (PCR) Not Detected (Not Detectd) SARS-CoV-2 (PCR) Not Detected (Not Detectd) 10/19/23 10/19/23 10/19/23 Range/Units 22:01 22:14 22:14 WBC (3.8-10.6) k/uL RBC (3.80-5.40) m/uL Hgb (11.4-16.0) gm/dL Hct (34.0-46.0) % MCV (80.0-100.0) fL MCH (25.0-35.0) pg MCHC (31.0-37.0) g/dL RDW (11.5-15.5) % Plt Count (150-450) k/uL MPV Neutrophils % % Lymphocytes % % Monocytes % % Eosinophils % % Basophils % % Neutrophils # (1.3-7.7) k/uL Lymphocytes # (1.0-4.8) k/uL Monocytes # (0-1.0) k/uL Eosinophils # (0-0.7) k/uL Basophils # (0-0.2) k/uL PT 10.7 (10.0-12.5) sec INR 1.0 (<1.2) APTT 24.6 (22.0-30.0) sec Sodium 107 L* (137-145) mmol/L Potassium 3.2 L (3.5-5.1) mmol/L Chloride 74 L* (98-107) mmol/L Carbon Dioxide 22 (22-30) mmol/L Anion Gap 11 mmol/L BUN 2 L (7-17) mg/dL Creatinine 0.34 L (0.52-1.04) mg/dL Est GFR (CKD-EPI)AfAm >90 (>60 ml/min/1.73 sqM) Est GFR (CKD-EPI)NonAf >90 (>60 ml/min/1.73 sqM) Glucose 164 H (74-99) mg/dL Lactic Ac Sepsis Rflx Y Plasma Lactic Acid Nic (0.7-2.0) mmol/L Calcium 8.5 (8.4-10.2) mg/dL Total Bilirubin 1.4 H (0.2-1.3) mg/dL AST 109 H (14-36) U/L ALT 45 H (4-34) U/L Alkaline Phosphatase 103 (38-126) U/L Ammonia (<30) umol/L Total Protein 7.4 (6.3-8.2) g/dL Albumin 4.7 (3.5-5.0) g/dL Influenza Type A (PCR) (Not Detectd) Influenza Type B (PCR) (Not Detectd) RSV (PCR) (Not Detectd) SARS-CoV-2 (PCR) (Not Detectd) Disposition Time of Disposition: 00:24 <Gallo Chavez - Last Filed: 10/20/23 00:23> <Arabella Díaz - Last Filed: 10/20/23 00:36> Clinical Impression: Hyponatremia, Altered mental status Disposition: ADMITTED IP TO THIS HOSP Condition: Good Referrals: None,Stated [Primary Care Provider] - 1-2 days
[2023-10-19 21:58] LABS: Lactic Acid, Venous 4.1 mmol/L (0.7-2.0)
[2023-10-19] MEDS ORDERED: LORazepam 2 MG/ML INJ IV PRN ×3 (22:06)
[2023-10-19 22:36] LABS: Partial Thromboplastin Time 24.6 sec (22.0-30.0); Prothrombin Time 10.7 sec (10.0-12.5)
[2023-10-19 22:46] LABS: ALT 45 U/L (4-34); African American GFR (CKD) >90 (>60 ml/min/1.73 sqM); Albumin 4.7 g/dL (3.5-5.0); Anion Gap 11 mmol/L; Blood Urea Nitrogen 2 mg/dL (7-17); Calcium 8.5 mg/dL (8.4-10.2); Carbon Dioxide 22 mmol/L (22-30); Glucose 164 mg/dL (74-99); Non-African American GFR(CKD) >90 (>60 ml/min/1.73 sqM); Total Bilirubin 1.4 mg/dL (0.2-1.3); Total Protein 7.4 g/dL (6.3-8.2)
[2023-10-19 23:16] LABS: Chloride 74 mmol/L (98-107); Potassium 3.2 mmol/L (3.5-5.1); Sodium 107 mmol/L (137-145)
[2023-10-19 23:17] LABS: AST 109 U/L (14-36); Alkaline Phosphatase 103 U/L (38-126)
[2023-10-19] MEDS: LACTULOSE 20 GM/30 ML CUP PO ONE (23:21)
[2023-10-19] MEDS: SODIUM CHLORIDE 0.9% 1,000 ML IV STA (23:22)
--- NOTE | 2023-10-20 00:06 | CT ---
EXAM: CT Head Without Intravenous Contrast CLINICAL HISTORY: ITS.REASON CT Reason: seizure AMS TECHNIQUE: Axial computed tomography images of the head/brain without intravenous contrast. CTDI is 47.1 mGy and DLP is 1445.4 mGy-cm. This CT exam was performed using one or more of the following dose reduction techniques: automated exposure control, adjustment of the mA and/or kV according to patient size, and/or use of iterative reconstruction technique. COMPARISON: No relevant prior studies available. FINDINGS: No acute intracranial hemorrhage. No midline shift or mass effect. The territorial ortiz-white matter differentiation is maintained throughout. The ventricles and sulci are commensurate with age. The visualized orbits appear grossly unremarkable. The calvarium is intact. The visualized paranasal sinuses and mastoid air cells are grossly clear. IMPRESSION: No acute intracranial hemorrhage, midline shift, or mass effect.
[2023-10-20] MEDS: SODIUM CHLORIDE 3%(HYPERTONIC) 500 ML IV ONE (00:25)
[2023-10-20] MEDS ORDERED: Potassium Replacement Protocol 1 EACH MISC MISCELLANE PRN ×3 (00:44→17:35)
[2023-10-20] MEDS ORDERED: Phosphorus Replacement Protoco 1 EACH MISC MISCELLANE PRN (00:44)
[2023-10-20] MEDS ORDERED: Magnesium Replacement Protocol 1 EACH MISC MISCELLANE PRN (00:44)
[2023-10-20] MEDS ORDERED: NALOXONE 0.4 MG/ML 1 ML VIAL IV PRN (00:44)
[2023-10-20 01:29] LABS: Alcohol <10 mg/dL
[2023-10-20 01:32] LABS: Glucose,Whole Blood 167 mg/dL (70-110)
[2023-10-20] MEDS ORDERED: LORazepam 2 MG/ML INJ IV STA (01:37)
[2023-10-20 01:51] LABS: Creatinine,Urine Random 19.8 mg/dL
[2023-10-20] MEDS: LORazepam 1 MG/0.5 ML VIAL IM STA (01:51)
[2023-10-20 01:54] LABS: Amorphous Sediment,Urine Rare /hpf; Appearance,Urine Clear (Clear); Bacteria,Urine Many /hpf; Bilirubin,Urine Negative (Negative); Blood,Urine Moderate (Negative); Color,Urine Colorless; Glucose,Urine (UA) Negative (Negative); Ketones,Urine 1+ (Negative); Leukocyte Esterase,Urine Large (Negative); Nitrite,Urine Negative (Negative); PH, Urine 7.5 (5.0-8.0); Protein,Urine 1+ (Negative); RBC,Urine 5 /hpf (0-5); Specific Gravity,Urine 1.008 (1.001-1.035); Squamous Epithelial Cell,Urine <1 /hpf (0-4); Urobilinogen,Urine <2.0 mg/dL (<2.0); WBC,Urine 84 /hpf (0-5)
[2023-10-20 02:02] LABS: Amphetamine Screen,Urine Not Detected (NotDetected); Benzodiazepines Screen,Urine Detected (NotDetected); Cocaine Screen,Urine Not Detected (NotDetected); Opiate Screen,Urine Not Detected (NotDetected); Phencyclidine Screen,Urine Not Detected (NotDetected); Urn Cannabinoid Scrn Detected (NotDetected)
[2023-10-20 02:03] LABS: Barbiturate Screen,Urine Not Detected (NotDetected); Methadone Screen, Urine Not Detected (NotDetected); Oxycodone Screen, Urine Not Detected (NotDetected); Tricyclic Antidepressant,Urine Not Detected (NotDetected)
[2023-10-20] MEDS: POTASSIUM CHLORIDE 10 MEQ in WATER FOR INJECTION 1 100ML.BAG IVPB SCH ×2 (02:20→11:12)
--- NOTE | 2023-10-20 03:34 | XR ---
EXAM: XR Chest, 1 View CLINICAL HISTORY: ITS.REASON XR Reason: r/o pna TECHNIQUE: Frontal view of the chest. COMPARISON: No relevant prior studies available. FINDINGS: Lungs: No consolidation or mass. Pleural space: No acute findings Heart: cardiomegaly. Bones/joints: No acute findings. IMPRESSION: No acute cardiopulmonary process.
[2023-10-20] MEDS: LORazepam 1 MG/0.5 ML VIAL IV PRN ×3 (04:13→22:37)
[2023-10-20] MEDS: THIAMINE 100 MG TAB PO SCH (08:48)
--- NOTE | 2023-10-20 10:46 | P.CNPUL ---
History of Present Illness Consult date: 10/20/23 Requesting physician: Oanh Juarez Reason for consult: other Chief complaint: Hyponatremia. History of present illness: Pulmonary consult dated October 20, 2023. 58-year-old female seen in the emergency room, October 19, 2023. The patient apparently presented with anxiety, and mental status changes. She was brought in by EMS. In addition, the patient apparently had been having some nausea and vomiting, and was not acting herself. Apparently most of the history was obtained from the . In addition, the patient apparently displayed some seizure-like activity, and received some Ativan. The patient is a heavy drinker, drinking 6 beers a day, and 1 pint of tequila every day. Currently, the patient is on saline at KVO, and she is also getting 3% saline at 35 cc an hour. She is also getting nasal O2 2 L. Today sodium is 111. Admission sodium was 107. The patient has a history of chronic alcoholism, fibromyalgia, diabetes, cocaine use, and marijuana use. White count 9.1, hemoglobin 14.3, hematocrit 41.3, and platelet count 178,000. Coagulation studies are normal. Sodium 111, potassium 3.2, chloride 74, CO2 22, BUN 2, and creatinine 0.34. Glucose 167. Lactic acid 4.1, with repeat lactic acid 1.7. AST is 109. ALT is 45. TSH is normal. Urinalysis suggest the possibility of urinary tract infection. Drug screen was positive for benzodiazepines, and marijuana. She te sted negative for influenza, RSV, and coronavirus. Review of Systems REVIEW OF SYSTEMS: CONSTITUTIONAL: [Negative.] NEUROLOGIC: Anxiety, mental status changes. HEENT: [ Negative.] CARDIAC: [Negative.] PULMONARY: Shortness of breath. GI: Nausea and vomiting. : [Negative.] RHEUMATOLOGIC: [ Negative.] IMMUNOLOGIC: [ Negative.] ENDOCRINE: [Negative. ] DERMATOLOGIC: [Negative.] Past Medical History Past Medical History: Diabetes Mellitus Additional Past Medical History / Comment(s): back pain, migraines, fibromyalgianh, history of seizures when withdrawling from "tramadol" or another medicaiton "years ago" per 10/19/23 History of Any Multi-Drug Resistant Organisms: None Reported Past Surgical History: Orthopedic Surgery Smoking Status: Current every day smoker Medications and Allergies Home Medications Medication Instructions Recorded Confirmed Type Famotidine 20 mg PO BID 10/20/23 10/20/23 History Ondansetron Odt [Zofran Odt] 4 mg PO Q12H PRN 10/20/23 10/20/23 History Allergies Allergy/AdvReac Type Severity Reaction Status Date / Time No Known Allergies Allergy Verified 10/19/23 20:43 Physical Exam Osteopathic Statement: *. No significant issues noted on an osteopathic structural exam other than those noted in the History and Physical/Consult. Vitals: Vital Signs Temp Pulse Resp BP Pulse Ox 10/20/23 10:00 98 16 133/84 97 10/20/23 09:00 99 21 133/86 98 10/20/23 08:00 99.4 F 98 20 131/91 99 10/20/23 07:00 97 20 142/103 98 10/20/23 06:00 128 H 20 150/119 95 10/20/23 05:00 98 19 150/119 98 10/20/23 04:20 98 23 187/78 98 10/20/23 04:10 109 H 17 96 10/20/23 04:00 99 21 165/100 98 10/20/23 03:50 122 H 25 H 98 10/20/23 03:40 96 20 94 L 10/20/23 03:30 107 H 22 97 10/20/23 03:20 116 H 20 94 L 10/20/23 03:10 118 H 20 95 10/20/23 03:00 116 H 26 H 148/112 97 10/20/23 02:50 124 H 26 H 96 10/20/23 02:40 97 20 124/82 97 10/20/23 02:30 96 19 124/82 98 10/20/23 02:20 101 H 21 116/75 98 10/20/23 02:10 126 H 24 135/83 99 10/20/23 02:00 98 F 110 H 23 170/133 96 10/20/23 01:50 121 H 26 H 96 10/20/23 01:40 123 H 23 163/125 97 10/20/23 01:10 104 H 18 132/78 97 10/19/23 23:39 96 18 145/79 97 10/19/23 20:28 97.7 F 95 22 187/115 99 Intake and Output 05/10/20/23 10/20/23 22:59 06:59 14:59 Intake Total 235 Output Total 615 275 Balance -615 -40 Intake: IV 135 0.9NS 30 Sodium Chloride 3%( 105 Hypertonic) 500 ml @ 35 mls/hr IV .[id number] ONE Rx #:[id number] Intake, IV Titration 100 Amount Potassium Chloride 10 meq 100 In Water For Injection 1 100ml.bag @ 100 mls/hr IVPB Q1HR [facility] Rx#: [id number] Output: Urine 615 275 Other: Voiding Method Indwelling Catheter Indwelling Catheter # Bowel Movements 1 Weight 61.235 kg 61.235 kg No acute distress, somnolent/lethargic. 2 L saturation is 99%. HEENT examination is grossly unremarkable. Mucous membranes dry. Neck supple. Full range of motion. No adenopathy thyromegaly or neck vein distention. Cardiovascular examination reveals regular rhythm rate. S1-S2 normal. No S3 or S4. No discernible murmur noted. Heart rate 98 bpm. Lungs mostly clear breath sounds. Scattered rhonchi. No wheezes or crackles. Breath sounds equal. She does not take deep breaths. Abdomen soft without bowel sounds. No masses or tenderness. Extremities are intact. No cyanosis clubbing or edema. Skin is without rash or lesion. Neurologic examination is brief but nonfocal. Results - Laboratory Findings CBC and BMP: 10/19/23 21:16 10/20/23 04:48 PT/INR, D-dimer PT 10.7 sec (10.0-12.5) 10/19/23 22:14 INR 1.0 (<1.2) 10/19/23 22:14 Abnormal lab findings: Abnormal Labs 10/19/23 10/19/23 10/19/23 21:16 21:16 22:14 Neutrophils # 7.9 H Lymphocytes # 0.5 L Sodium 107 L* Potassium 3.2 L Chloride 74 L* BUN 2 L Creatinine 0.34 L Glucose 164 H POC Glucose (mg/dL) Plasma Lactic Acid Nic 4.1 H* Total Bilirubin 1.4 H GGT AST 109 H ALT 45 H Ammonia 58 H Urine Protein Urine Ketones Urine Blood Ur Leukocyte Esterase Urine WBC Urine WBC Clumps Amorphous Sediment Urine Bacteria U Benzodiazepines Scrn U Marijuana (THC) Screen 10/19/23 10/20/23 10/20/23 22:14 00:00 01:11 Neutrophils # Lymphocytes # Sodium 109 L* Potassium Chloride BUN Creatinine Glucose POC Glucose (mg/dL) Plasma Lactic Acid Nic Total Bilirubin GGT 229 H AST ALT Ammonia Urine Protein 1+ H Urine Ketones 1+ H Urine Blood Moderate H Ur Leukocyte Esterase Large H Urine WBC 84 H Urine WBC Clumps Many H Amorphous Sediment Rare H Urine Bacteria Many H U Benzodiazepines Scrn U Marijuana (THC) Screen 10/20/23 10/20/23 10/20/23 01:11 01:31 04:48 Neutrophils # Lymphocytes # Sodium 111 L* Potassium Chloride BUN Creatinine Glucose POC Glucose (mg/dL) 167 H Plasma Lactic Acid Nic Total Bilirubin GGT AST ALT Ammonia Urine Protein Urine Ketones Urine Blood Ur Leukocyte Esterase Urine WBC Urine WBC Clumps Amorphous Sediment Urine Bacteria U Benzodiazepines Scrn Detected H U Marijuana (THC) Screen Detected H - Diagnostic Findings Chest x-ray: image reviewed Assessment and Plan Assessment: Severe hyponatremia, likely with a component of beer potomania. Questionable seizure, secondary to hyponatremia. History of chronic alcohol and drug use/abuse. Rule out urinary tract infection/acute cystitis. History of diabetes mellitus. History of marijuana use. History of cocaine use. History of fibromyalgia. Plan: Plan dated October 20, 2023. The patient is seen in the intensive care unit, room 258. The patient is getting saline at KVO, and 3% saline at 35 cc an hour. Her most recent sodium level was 111. Her admission level was 107. She is on 2 L of oxygen. The patient apparently drinks 6 beers a day, or maybe more, and also drinks 1 pint of tequila every day. Labs, x-rays, medications are reviewed. Prognosis is guarded. The patient apparently also possibly had a seizure. We will continue to follow the patient, make recommendations along the way. Time with Patient: Greater than 30
[2023-10-20 10:47] LABS: Basophils % (A) 0 %; Eosinophils % (A) 0 %; HGB 14.1 gm/dL (11.4-16.0); Lymphocytes # (A) 0.5 k/uL (1.0-4.8); Lymphocytes % (A) 6 %; MCH 33.7 pg (25.0-35.0); MCHC 35.2 g/dL (31.0-37.0); MCV 95.7 fL (80.0-100.0); Monocytes # (A) 0.6 k/uL (0-1.0); Monocytes % (A) 8 %; Neutrophils # (A) 6.4 k/uL (1.3-7.7); Neutrophils % (A) 84 %; Platelet Count 134 k/uL (150-450); RBC 4.19 m/uL (3.80-5.40); WBC 7.6 k/uL (3.8-10.6)
[2023-10-20 10:48] LABS: ALT 46 U/L (4-34); African American GFR (CKD) >90 (>60 ml/min/1.73 sqM); Anion Gap 5 mmol/L; Blood Urea Nitrogen <2 mg/dL (7-17); Carbon Dioxide 24 mmol/L (22-30); Chloride 85 mmol/L (98-107); Glucose 100 mg/dL (74-99); Non-African American GFR(CKD) >90 (>60 ml/min/1.73 sqM); Total Bilirubin 1.3 mg/dL (0.2-1.3)
[2023-10-20 10:51] LABS: AST 127 U/L (14-36); Alkaline Phosphatase 80 U/L (38-126); Potassium 2.9 mmol/L (3.5-5.1); Sodium 114 mmol/L (137-145)
[2023-10-20 10:52] LABS: Albumin 3.7 g/dL (3.5-5.0); Magnesium 1.2 mg/dL (1.6-2.3); Total Protein 6.3 g/dL (6.3-8.2)
[2023-10-20] MEDS: MAGNESIUM SULFATE-D5W PMX 1 GM in DEXTROSE/WATER 1 100ML.BAG IVPB SCH (11:11)
--- NOTE | 2023-10-20 12:09 | P.NPCON ---
History of Present Illness - Reason for Consult hyponatremia - History of Present Illness patient is a 58-year-old female with history of alcohol abuse who was admitted to the hospital with mental status changes along with nausea and vomiting. Patient also had a seizure. Serum sodium was low at 10 7 mEq/L. Patient has been started on 3% saline. It appears that patient had another seizure in the ICU last night. sodium has improved to 114. Mentation is improving. loose stools noted. Review of Systems As per HPI Past Medical History Past Medical History: Diabetes Mellitus Additional Past Medical History / Comment(s): back pain, migraines, fibromyalgianh, history of seizures when withdrawling from "tramadol" or another medicaiton "years ago" per 10/19/23 History of Any Multi-Drug Resistant Organisms: None Reported Past Surgical History: Orthopedic Surgery Smoking Status: Current every day smoker Medications and Allergies Home Medications Medication Instructions Recorded Confirmed Type Famotidine 20 mg PO BID 10/20/23 10/20/23 History Ondansetron Odt [Zofran Odt] 4 mg PO Q12H PRN 10/20/23 10/20/23 History Allergies Allergy/AdvReac Type Severity Reaction Status Date / Time No Known Allergies Allergy Verified 10/19/23 20:43 Physical Exam Vitals: Vital Signs Temp Pulse Resp BP Pulse Ox 10/20/23 12:00 97.8 F 108 H 26 H 133/84 96 10/20/23 11:00 97 17 116/72 98 10/20/23 10:00 98 16 133/84 97 10/20/23 09:00 99 21 133/86 98 10/20/23 08:00 99.4 F 98 20 131/91 99 10/20/23 07:00 97 20 142/103 98 10/20/23 06:00 128 H 20 150/119 95 10/20/23 05:00 98 19 150/119 98 10/20/23 04:20 98 23 187/78 98 10/20/23 04:10 109 H 17 96 10/20/23 04:00 99 21 165/100 98 10/20/23 03:50 122 H 25 H 98 10/20/23 03:40 96 20 94 L 10/20/23 03:30 107 H 22 97 10/20/23 03:20 116 H 20 94 L 10/20/23 03:10 118 H 20 95 10/20/23 03:00 116 H 26 H 148/112 97 10/20/23 02:50 124 H 26 H 96 10/20/23 02:40 97 20 124/82 97 10/20/23 02:30 96 19 124/82 98 10/20/23 02:20 101 H 21 116/75 98 10/20/23 02:10 126 H 24 135/83 99 10/20/23 02:00 98 F 110 H 23 170/133 96 10/20/23 01:50 121 H 26 H 96 10/20/23 01:40 123 H 23 163/125 97 10/20/23 01:10 104 H 18 132/78 97 10/19/23 23:39 96 18 145/79 97 10/19/23 20:28 97.7 F 95 22 187/115 99 Intake and Output 10/19/23 10/20/23 10/20/23 22:59 06:59 14:59 Intake Total 315 Output Total 615 365 Balance -615 -50 Intake: IV 215 0.9NS 50 Sodium Chloride 3%( 165 Hypertonic) 500 ml @ 30 mls/hr IV .[id number] ONE Rx #:[id number] Intake, IV Titration 100 Amount Potassium Chloride 10 meq 100 In Water For Injection 1 100ml.bag @ 100 mls/hr IVPB Q1HR [facility] Rx#: [id number] Output: Urine 615 365 Other: Voiding Method Indwelling Catheter Indwelling Catheter # Bowel Movements 1 Weight 61.235 kg 61.235 kg patient is awake, comfortable, no acute distress. She is confused on and off. Examination of the heart S1 and S2 Examination of the lungs bilateral breath sounds are heard Abdomen is soft nontender Examination lower extremity shows no edema. Results - Lab Results Most recent lab results Calcium 8.0 mg/dL (8.4-10.2) L 10/20/23 09:37 Magnesium 1.2 mg/dL (1.6-2.3) L 10/20/23 09:37 10/20/23 09:37 10/20/23 09:37 Assessment and Plan Assessment: 1. Severe hyponatremia, hypovolemic and associated with alcohol abuse along with low urinary solute. Urine osmolality at 285 with random urine sodium at 83. Currently maintained on 3% saline due to seizure activity. 2. EtOH abuse 3. Altered mentation secondary to hyponatremia 4. History of marijuana use and cocaine abuse Plan: continue with 3% saline. Decrease rate to 30 mL an hour and recheck sodium in 4 hours. Continue with Ativan for DTs Thank you for the consultation. We will continue to follow the patient with you during her hospitalization.
[2023-10-20] MEDS: POTASSIUM CHLORIDE ER 20 MEQ TAB.ER PO SCH ×2 (14:06→17:43)
[2023-10-20] MEDS ORDERED: HALOPERIDOL LACTATE 5 MG/ML 1 ML VIAL IVP PRN ×2 (14:20→14:21)
--- NOTE | 2023-10-20 14:52 | P.CNNES ---
History of Present Illness Consult date: 10/20/23 Requesting physician: Geneva Samuels Reason for Consult: Seizure-like activity History of Present Illness: Patient is a 58-year-old female who was brought to the hospital by ambulance yesterday at 7:59 PM for altered mental status. As per EMS flowsheet, when they arrived, patient was in bedroom complaining of difficulty breathing. Family mentioned that she has been in her room and her difficulty breathing has been getting worse all day. Patient was alert and orient x 4. Patient was not in any distress. Patient was able to speak in full sentences. Patient is not consistent with her complaints and location of pain. Patient continued to ask for help and gave different complaints to the EMS. Patient attempts to have syncopal episodes that last for 30 seconds then she wakes up. Patient uses c omplaint of difficulty in breathing a few times so oxygen via nasal cannula is applied with immediate relief, before even oxygen can be turned on. Efforts were made to calm patient with little effect. Patient's vitals at the scene was blood pressure 178/138, pulse rate 40, respiration 24 saturation 100%. Blood tests on arrival CBC is normal PT PTT normal, sodium 107, potassium 3.2, normal renal, functions. Ammonia is elevated 58. TSH is normal 1.050. AST is 109, ALT 45. UA shows large amount of leukocyte esterase and 84 WBCs and many WBC clumps. Urine drug screen positive for benzodiazepine and marijuana. Blood alcohol level negative. Influenza screen, RSV and coronavirus PCR negative. Most recent sodium is 114. Potassium 2.9. Hepatic panel are improving. CT head revealed no acute intracranial process or midline shift. I personally reviewed CT head agree with the findings. Chest x-ray is normal. EKG shows sinus tachycardia. Patient at present states that she does not remember what happened. She remembers that she went to bed and then patient claims that she has f ibromyalgia. Woke up "here". Patient apparently had a seizure type spell while patient was in the ER. She has a second seizure type spell while she was being transported from ER to the ICU.Patient had an episode of being disoriented with no response, aphasic with abnormal flexion. Patient was rigid. This happened at 1:30 AM. Patient denies any history of seizures. She denies excessive alcoh olism, states drinks a cup of beer and a shot of tequila when she is in pain. She does not remember who called the ambulance. She is asking for her . Patient lives with her . Does not use any assistive device. While I was examining the patient, patient became confused, wanted to take off all her gowns and clothing's because she wanted to pass urine. Patient would no t cooperate with review of systems. Review of Systems Patient denies headache. Denies any pain anywhere, but does have fibromyalgia. ROS unobtainable: due to mental status Past Medical History Past Medical History: Diabetes Mellitus Additional Past Medical History / Comment(s): back pain, migraines, fibromyalgianh, history of seizures when withdrawling from "tramadol" or another medicaiton "years ago" per 10/19/23 History of Any Multi-Drug Resistant Organisms: None Reported Past Surgical History: Orthopedic Surgery Smoking Status: Current every day smoker Medications and Allergies Home Medications Medication Instructions Recorded Confirmed Type Famotidine 20 mg PO BID 10/20/23 10/20/23 History Ondansetron Odt [Zofran Odt] 4 mg PO Q12H PRN 10/20/23 10/20/23 History Allergies Allergy/AdvReac Type Severity Reaction Status Date / Time No Known Allergies Allergy Verified 10/19/23 20:43 Physical Examination - Vital Signs Vital Signs: Vital Signs Temp Pulse Resp BP Pulse Ox 10/20/23 12:00 97.8 F 108 H 26 H 133/84 96 10/20/23 11:00 97 17 116/72 98 10/20/23 10:00 98 16 133/84 97 10/20/23 09:00 99 21 133/86 98 10/20/23 08:00 99.4 F 98 20 131/91 99 10/20/23 07:00 97 20 142/103 98 10/20/23 06:00 128 H 20 150/119 95 10/20/23 05:00 98 19 150/119 98 10/20/23 04:20 98 23 187/78 98 10/20/23 04:10 109 H 17 96 10/20/23 04:00 99 21 165/100 98 10/20/23 03:50 122 H 25 H 98 10/20/23 03:40 96 20 94 L 10/20/23 03:30 107 H 22 97 10/20/23 03:20 116 H 20 94 L 10/20/23 03:10 118 H 20 95 10/20/23 03:00 116 H 26 H 148/112 97 10/20/23 02:50 124 H 26 H 96 10/20/23 02:40 97 20 124/82 97 10/20/23 02:30 96 19 124/82 98 10/20/23 02:20 101 H 21 116/75 98 10/20/23 02:10 126 H 24 135/83 99 10/20/23 02:00 98 F 110 H 23 170/133 96 10/20/23 01:50 121 H 26 H 96 10/20/23 01:40 123 H 23 163/125 97 10/20/23 01:10 104 H 18 132/78 97 10/19/23 23:39 96 18 145/79 97 10/19/23 20:28 97.7 F 95 22 187/115 99 Intake and Output 10/19/23 10/20/23 10/20/23 22:59 06:59 14:59 Intake Total 515 Output Total 615 365 Balance -615 150 Intake: IV 215 0.9NS 50 Sodium Chloride 3%( 165 Hypertonic) 500 ml @ 30 mls/hr IV .[id number] [facility] Rx #:[id number] Intake, IV Titration 300 Amount Magnesium Sulfate-D5w Pmx 100 1 gm In Dextrose/Water 1 100ml.bag @ 100 mls/hr IVPB Q1H [facility] Rx#: [id number] Potassium Chloride 10 meq 100 In Water For Injection 1 100ml.bag @ 100 mls/hr IVPB Q1HR [facility] Rx#: [id number] Potassium Chloride 10 meq 100 In Water For Injection 1 100ml.bag @ 100 mls/hr IVPB Q1HR [facility] Rx#: [id number] Output: Urine 615 365 Other: Voiding Method Indwelling Catheter Indwelling Catheter # Bowel Movements 1 Weight 61.235 kg 61.235 kg Patient is a middle aged female, in no acute distress. Patient appears somewhat delirious, mildly encephalopathic. Patient is alert awake. Patient states is the month of October, could not tell the year. She was not sure if she was in the [facility] or [facility] but knows that she is in [place] in [place] and name of the current president Mr. Villeda. Speech and language functions are normal. Patient can name all objects presented and repeat very well. No aphasia or dysarthria. Attention, concentration is slightly decreased and fund of knowledge is limited due to mental status. On cranial nerve examination, pupils are equal, round and reacting to light, visual dominguez are full on confrontation, with no neglect on double simultaneous stimulation. Extraocular muscles are intact with no nystagmus. Face is symmetric, tongue protrudes to the midline. Palatal elevation and sensation normal, hearing and shoulder shrug normal, facial sensation normal. On muscle strength testing, there is no pronator drift and the strength is normal in arms and legs distally and proximally. Deep tendon reflexes are symmetric trace in the upper limbs at biceps and brachioradialis, 1+ at the knees and plantars downgoing. Sensory to touch is equal with no neglect on double simultaneous stimulation. Cerebellar function showed no ataxia for [id number] testing. Tone and bulk of muscles normal. Gait deferred.. On general examination, there is no carotid bruit or murmur, S1-S2 audible. Chest is clear on consultation. Abdomen is soft nontender. No organomegaly, bowel sounds present. Peripheral pulses are present. No peripheral edema. Results - Laboratory Findings CBC and BMP: 10/20/23 09:37 10/20/23 09:37 Abnormal Lab Findings: Abnormal Labs 10/19/23 10/19/23 10/19/23 21:16 21:16 22:14 Plt Count Neutrophils # 7.9 H Lymphocytes # 0.5 L Sodium 107 L* Potassium 3.2 L Chloride 74 L* BUN 2 L Creatinine 0.34 L Glucose 164 H POC Glucose (mg/dL) Osmolality Plasma Lactic Acid Nic 4.1 H* Calcium Magnesium Total Bilirubin 1.4 H GGT AST 109 H ALT 45 H Ammonia 58 H Urine Protein Urine Ketones Urine Blood Ur Leukocyte Esterase Urine WBC Urine WBC Clumps Amorphous Sediment Urine Bacteria Urine Osmolality U Benzodiazepines Scrn U Marijuana (THC) Screen 10/19/23 10/20/23 10/20/23 22:14 00:00 00:00 Plt Count Neutrophils # Lymphocytes # Sodium 109 L* Potassium Chloride BUN Creatinine Glucose POC Glucose (mg/dL) Osmolality 233 A* Plasma Lactic Acid Nic Calcium Magnesium Total Bilirubin GGT 229 H AST ALT Ammonia Urine Protein Urine Ketones Urine Blood Ur Leukocyte Esterase Urine WBC Urine WBC Clumps Amorphous Sediment Urine Bacteria Urine Osmolality U Benzodiazepines Scrn U Marijuana (THC) Screen 10/20/23 10/20/23 10/20/23 01:11 01:11 01:11 Plt Count Neutrophils # Lymphocytes # Sodium Potassium Chloride BUN Creatinine Glucose POC Glucose (mg/dL) Osmolality Plasma Lactic Acid Nic Calcium Magnesium Total Bilirubin GGT AST ALT Ammonia Urine Protein 1+ H Urine Ketones 1+ H Urine Blood Moderate H Ur Leukocyte Esterase Large H Urine WBC 84 H Urine WBC Clumps Many H Amorphous Sediment Rare H Urine Bacteria Many H Urine Osmolality 285 L U Benzodiazepines Scrn Detected H U Marijuana (THC) Screen Detected H 10/20/23 10/20/23 10/20/23 01:31 04:48 09:37 Plt Count 134 L Neutrophils # Lymphocytes # 0.5 L Sodium 111 L* Potassium Chloride BUN Creatinine Glucose POC Glucose (mg/dL) 167 H Osmolality Plasma Lactic Acid Nic Calcium Magnesium Total Bilirubin GGT AST ALT Ammonia Urine Protein Urine Ketones Urine Blood Ur Leukocyte Esterase Urine WBC Urine WBC Clumps Amorphous Sediment Urine Bacteria Urine Osmolality U Benzodiazepines Scrn U Marijuana (THC) Screen 10/20/23 09:37 Plt Count Neutrophils # Lymphocytes # Sodium 114 L* Potassium 2.9 L Chloride 85 L BUN <2 L Creatinine 0.36 L Glucose 100 H POC Glucose (mg/dL) Osmolality Plasma Lactic Acid Nic Calcium 8.0 L Magnesium 1.2 L Total Bilirubin GGT AST 127 H ALT 46 H Ammonia Urine Protein Urine Ketones Urine Blood Ur Leukocyte Esterase Urine WBC Urine WBC Clumps Amorphous Sediment Urine Bacteria Urine Osmolality U Benzodiazepines Scrn U Marijuana (THC) Screen Assessment and Plan Assessment: * Altered mental status, due to metabolic encephalopathy. Reasons multifactorial as mentioned below. * New onset seizure, likely provoked due to reasons mentioned below. * Hyponatremia with sodium 107 * Hypokalemia * Possible hepatic encephalopathy with elevated ammonia 58 * Elevated lactate 4.1 * Abnormal liver functions * Acute UTI * Alcoholism * Marijuana use * Fibromyalgia Plan: * Patient has acute hyponatremia. Nephrology on board. Sodium has improved. Patient on hypertonic saline. * Seizure was likely provoked due to severe metabolic derangement. No indication for EEG. Patient's mental status is much improving. No clinical recommend abstinence from alcohol evidence of status. * [facility] protocol. * Continue thiamine, folic acid, multivitamins. * Other medical management as per IM and other specialties on board. * Recommend abstinence from alcoholism and polysubstance. * Neurology will follow. Thank you for the consult.
[2023-10-20] MEDS ORDERED: DEXTROSE 50% SYRINGE 50 ML IVP PRN ×2 (14:55)
[2023-10-20] MEDS: FOLIC ACID 1 MG TAB PO SCH (16:21)
[2023-10-20 16:40] LABS: Glucose,Whole Blood 112 mg/dL (70-110)
[2023-10-20] MEDS: INSULIN ASPART (NovoLOG) 100 UNIT/ML VIAL SQ SCH (17:07)
[2023-10-20] MEDS ORDERED: ONDANSETRON 4 MG/2 ML VIAL IVP PRN (17:30)
[2023-10-20 17:31] LABS: Potassium 2.9 mmol/L (3.5-5.1)
--- NOTE | 2023-10-20 17:35 | P.HPIM ---
History of Present Illness H&P Date: 10/20/23 This is a 58-year-old female with medical history significant for diabetes mellitus, migraines, fibromyalgia, anxiety/depression, daily alcohol use, patient is a every day smoker with history of polysubstance abuse with cocaine and marijuana. Patient was brought into the hospital by EMS with reported concerns of anxiety and shortness of breath. Patient in the ER on initial assessment was noted to have seizure-like activity was given 2 mg of IM Ativan. Patient is alert and oriented x 1 at this time and is significantly agitated and restless. She does endorse daily alcohol use states she drinks 2 beers per day. Due to the confusion unable to gather a detailed history from the patient. The rest of the medical history was taken from patients who states she battles with chronic pain and uses alcohol as a method of pain control. Has not been to see a physician in over 4 years. admits to patient drinking "4 tall boys" per day additionally will drink liquor as well. States she has quit smoking over 2 weeks ago due to shortness of breath and unable to take a deep breath. Denies any cough, fever or chills. States there have been no recent sick contacts. Brain CT shows no acute intracranial hemorrhage midline shift or mass effect. Chest xray shows no acute cardiopulmonary process. EKG shows sinus tachycardia and moderate ST depression. Rate of 109. She was severely hyp onatremic on admission with a sodium level of 117, potassium of 3.2, chloride of 74, lactic acid of 4.1, magnesium level is 1.2, bilirubin is 1.4 AST ALT are elevated. Urinalysis showing large leukocyte esterase and many bacteria. Urine drug toxicology at this time is positive for benzodiazepines and marijuana. Viral panel is negative. Patient was started on 3% normal saline infusion and admitted to the intensive care unit with consults placed to nephrology and neurology services. REVIEW OF SYSTEMS: CONSTITUTIONAL: No fever, no malaise, no fatigue. HEENT: No recent visual problems or hearing problems. Denied any sore throat. CARDIOVASCULAR: No chest pain, orthopnea, PND, no palpitations, no syncope. PULMONARY: No shortness of breath, no cough, no hemoptysis. GASTROINTESTINAL: No diarrhea, no nausea, no vomiting, no abdominal pain. NEUROLOGICAL: No headaches, no weakness, no numbness. HEMATOLOGICAL: Denies any bleeding or petechiae. GENITOURINARY: Denies any burning micturition, frequency, or urgency. MUSCULOSKELETAL/RHEUMATOLOGICAL: Denies any joint pain, swelling, or any muscle pain. ENDOCRINE: Denies any polyuria or polydipsia. The rest of the 14-point review of systems is negative. PHYSICAL EXAMINATION: GENERAL: The patient is alert and oriented x1, not in any acute distress. Well developed, well nourished. HEENT: Pupils are round and equally reacting to light. EOMI. No scleral icterus. No conjunctival pallor. Normocephalic, atraumatic. No pharyngeal erythema. No thyromegaly. CARDIOVASCULAR: S1 and S2 present. No murmurs, rubs, or gallops. PULMONARY: Chest is clear to auscultation, no wheezing or crackles. ABDOMEN: Soft, nontender, nondistended, normoactive bowel sounds. No palpable organomegaly. MUSCULOSKELETAL: No joint swelling or deformity. EXTREMITIES: No cyanosis, clubbing, or pedal edema. NEUROLOGICAL: Gross neurological examination did not reveal any focal deficits. SKIN: No rashes. Assessment and Plan Altered mental status secondary to acute metabolic encephalopathy due to the hyponatremia Rule out seizure-like activity seizure could be related to the low sodium level as well as alcohol withdrawal seizure neurology has been consulted for further evaluation Chronic alcoholism patient has been started on Ativan CIWA protocol and monitor for withdrawal symptoms patient is in seizure precautions Hyponatremia like from poor oral intake exacerbated by alcohol use; component of beer potomania Hypokalemia and Hypomagnesemia supplemented and repeat blood work. Diabetes mellitus type 2 diet controlled accuchecks ACHS and sliding scale ordered, check an A1C level Shortness of breath; check a d-dimer albuterol nebulized as needed. History of fibromyalgia Degenerative disc disease and chronic back pain Anxiety/depression Chronic nicotine use quit 2 weeks ago Polysubstance abuse with history of cocaine and marijuana use Chronic avascular necrosis per the GI prophylaxis: pepcid DVT prophylaxis: heparin subcu Full Code The impression and plan of care has been dictated by Geneva Samuels, Nurse Practitioner as directed. Dr. Lakesha MD I have performed a history and physical examination and medical decision making of this patient, discussed the same with the dictator, and agree with the dictators assessment and plan as written, documented as a scribe. Based on total visit time, I have performed more than 50% of this visit. Past Medical History Past Medical History: Diabetes Mellitus Additional Past Medical History / Comment(s): back pain, migraines, fibromyalgianh, history of seizures when withdrawling from "tramadol" or another medicaiton "years ago" per 10/19/23 History of Any Multi-Drug Resistant Organisms: None Reported Past Surgical History: Orthopedic Surgery Smoking Status: Current every day smoker Medications and Allergies Home Medications Medication Instructions Recorded Confirmed Type Famotidine 20 mg PO BID 10/20/23 10/20/23 History Ondansetron Odt [Zofran Odt] 4 mg PO Q12H PRN 10/20/23 10/20/23 History Allergies Allergy/AdvReac Type Severity Reaction Status Date / Time No Known Allergies Allergy Verified 10/19/23 20:43 Physical Exam Vitals: Vital Signs Temp Pulse Resp BP Pulse Ox 10/20/23 09:00 99 21 133/86 98 10/20/23 08:00 99.4 F 98 20 131/91 99 10/20/23 07:00 97 20 142/103 98 10/20/23 06:00 128 H 20 150/119 95 10/20/23 05:00 98 19 150/119 98 10/20/23 04:20 98 23 187/78 98 10/20/23 04:10 109 H 17 96 10/20/23 04:00 99 21 165/100 98 10/20/23 03:50 122 H 25 H 98 10/20/23 03:40 96 20 94 L 10/20/23 03:30 107 H 22 97 10/20/23 03:20 116 H 20 94 L 10/20/23 03:10 118 H 20 95 10/20/23 03:00 116 H 26 H 148/112 97 10/20/23 02:50 124 H 26 H 96 10/20/23 02:40 97 20 124/82 97 10/20/23 02:30 96 19 124/82 98 10/20/23 02:20 101 H 21 116/75 98 10/20/23 02:10 126 H 24 135/83 99 10/20/23 02:00 98 F 110 H 23 170/133 96 10/20/23 01:50 121 H 26 H 96 10/20/23 01:40 123 H 23 163/125 97 10/20/23 01:10 104 H 18 132/78 97 10/19/23 23:39 96 18 145/79 97 10/19/23 20:28 97.7 F 95 22 187/115 99 Intake and Output 10/19/23 10/20/23 10/20/23 22:59 06:59 14:59 Intake Total 190 Output Total 615 215 Balance - Intake: IV 90 0.9NS 20 Sodium Chloride 3%( 70 Hypertonic) 500 ml @ 35 mls/hr IV .[id number] Rx #:[id number] Intake, IV Titration 100 Amount Potassium Chloride 10 meq 100 In Water For Injection 1 100ml.bag @ 100 mls/hr IVPB Q1HR [facility] Rx#: [id number] Output: Urine 615 215 Other: Voiding Method Indwelling Catheter Indwelling Catheter # Bowel Movements 1 Weight 61.235 kg 61.235 kg Results CBC & Chem 7: 10/20/23 09:37 10/20/23 09:37 Labs: Abnormal Lab Results - Last 24 Hours (Table) 10/19/23 10/19/23 10/19/23 Range/Units 21:16 21:16 22:14 Neutrophils # 7.9 H (1.3-7.7) k/uL Lymphocytes # 0.5 L (1.0-4.8) k/uL Sodium 107 L* (137-145) mmol/L Potassium 3.2 L (3.5-5.1) mmol/L Chloride 74 L* (98-107) mmol/L BUN 2 L (7-17) mg/dL Creatinine 0.34 L (0.52-1.04) mg/dL Glucose 164 H (74-99) mg/dL POC Glucose (mg/dL) (70-110) mg/dL Plasma Lactic Acid Nic 4.1 H* (0.7-2.0) mmol/L Total Bilirubin 1.4 H (0.2-1.3) mg/dL GGT (0-38) U/L AST 109 H (14-36) U/L ALT 45 H (4-34) U/L Ammonia 58 H (<30) umol/L Urine Protein (Negative) Urine Ketones (Negative) Urine Blood (Negative) Ur Leukocyte Esterase (Negative) Urine WBC (0-5) /hpf Urine WBC Clumps (None) /hpf Amorphous Sediment (None) /hpf Urine Bacteria (None) /hpf U Benzodiazepines Scrn (NotDetected) U Marijuana (THC) Screen (NotDetected) 10/19/23 10/20/23 10/20/23 Range/Units 22:14 00:00 01:11 Neutrophils # (1.3-7.7) k/uL Lymphocytes # (1.0-4.8) k/uL Sodium 109 L* (137-145) mmol/L Potassium (3.5-5.1) mmol/L Chloride (98-107) mmol/L BUN (7-17) mg/dL Creatinine (0.52-1.04) mg/dL Glucose (74-99) mg/dL POC Glucose (mg/dL) (70-110) mg/dL Plasma Lactic Acid Nic (0.7-2.0) mmol/L Total Bilirubin (0.2-1.3) mg/dL GGT 229 H (0-38) U/L AST (14-36) U/L ALT (4-34) U/L Ammonia (<30) umol/L Urine Protein 1+ H (Negative) Urine Ketones 1+ H (Negative) Urine Blood Moderate H (Negative) Ur Leukocyte Esterase Large H (Negative) Urine WBC 84 H (0-5) /hpf Urine WBC Clumps Many H (None) /hpf Amorphous Sediment Rare H (None) /hpf Urine Bacteria Many H (None) /hpf U Benzodiazepines Scrn (NotDetected) U Marijuana (THC) Screen (NotDetected) 10/20/23 10/20/23 10/20/23 Range/Units 01:11 01:31 04:48 Neutrophils # (1.3-7.7) k/uL Lymphocytes # (1.0-4.8) k/uL Sodium 111 L* (137-145) mmol/L Potassium (3.5-5.1) mmol/L Chloride (98-107) mmol/L BUN (7-17) mg/dL Creatinine (0.52-1.04) mg/dL Glucose (74-99) mg/dL POC Glucose (mg/dL) 167 H (70-110) mg/dL Plasma Lactic Acid Nic (0.7-2.0) mmol/L Total Bilirubin (0.2-1.3) mg/dL GGT (0-38) U/L AST (14-36) U/L ALT (4-34) U/L Ammonia (<30) umol/L Urine Protein (Negative) Urine Ketones (Negative) Urine Blood (Negative) Ur Leukocyte Esterase (Negative) Urine WBC (0-5) /hpf Urine WBC Clumps (None) /hpf Amorphous Sediment (None) /hpf Urine Bacteria (None) /hpf U Benzodiazepines Scrn Detected H (NotDetected) U Marijuana (THC) Screen Detected H (NotDetected) Thrombosis Risk Factor Assmnt - Choose All That Apply Any of the Below Risk Factors Present?: Yes Each Factor Represents 1 point: Age 41-60 years Other Risk Factors: No Thrombosis Risk Factor Assessment Total Risk Factor Score: 1 Thrombosis Risk Factor Assessment Level: Low Risk Assessment and Plan Time with Patient: Greater than 30
[2023-10-20] MEDS: HEPARIN SODIUM,PORCINE 5,000 UNIT/ML 1 ML VIAL SQ SCH (21:32)
[2023-10-20 22:08] LABS: Glucose,Whole Blood 120 mg/dL (70-110)
[2023-10-20 22:54] LABS: Potassium 3.6 mmol/L (3.5-5.1)
[2023-10-21 04:57] LABS: Basophils % (A) 0 %; Eosinophils % (A) 1 %; HCT 43.9 % (34.0-46.0); HGB 14.5 gm/dL (11.4-16.0); Lymphocytes # (A) 0.6 k/uL (1.0-4.8); Lymphocytes % (A) 10 %; Mean Platelet Volume 8.6; Monocytes # (A) 0.5 k/uL (0-1.0); Monocytes % (A) 9 %; Neutrophils # (A) 4.5 k/uL (1.3-7.7); Neutrophils % (A) 79 %; Platelet Count 136 k/uL (150-450); RBC 4.39 m/uL (3.80-5.40); RDW 12.6 % (11.5-15.5); WBC 5.7 k/uL (3.8-10.6)
[2023-10-21 05:12] LABS: ALT 45 U/L (4-34); AST 109 U/L (14-36); African American GFR (CKD) >90 (>60 ml/min/1.73 sqM); Albumin 3.5 g/dL (3.5-5.0); Alkaline Phosphatase 84 U/L (38-126); Anion Gap 5 mmol/L; Blood Urea Nitrogen 3 mg/dL (7-17); Calcium 8.7 mg/dL (8.4-10.2); Carbon Dioxide 18 mmol/L (22-30); Chloride 101 mmol/L (98-107); Glucose 113 mg/dL (74-99); Magnesium 2.3 mg/dL (1.6-2.3); Non-African American GFR(CKD) >90 (>60 ml/min/1.73 sqM); Potassium 3.5 mmol/L (3.5-5.1); Sodium 124 mmol/L (137-145); Total Protein 6.1 g/dL (6.3-8.2)
[2023-10-21] MEDS: POTASSIUM CHLORIDE ER 20 MEQ TAB.ER PO SCH (06:35)
[2023-10-21] MEDS: FAMOTIDINE 20 MG TAB PO SCH (08:47)
--- NOTE | 2023-10-21 10:32 | P.PN ---
Subjective patient is seen for follow-up for hyponatremia. She is currently off of 3% saline. Serum sodium improved to 124 today. Mentation appears to be close to normal now. No further seizures reported. Objective - Vital Signs Vital signs: Vital Signs Temp 97.8 F 10/21/23 08:00 Pulse 106 H 10/21/23 09:00 Resp 27 H 10/21/23 09:00 BP 114/71 10/21/23 09:00 Pulse Ox 97 10/21/23 09:00 FiO2 Intake & Output 10/20/23 10/21/23 10/21/23 18:59 06:59 18:59 Intake Total 1325 110 10 Output Total 1500 875 45 Balance -175 -765 -35 Weight 61.235 kg Intake: IV 425 110 10 0.9NS 110 110 10 Sodium Chloride 3%( 315 Hypertonic) 500 ml @ 30 mls/hr IV .[id number] Rx #:[id number] Intake, IV Titration 700 Amount Magnesium Sulfate-D5w Pmx 400 1 gm In Dextrose/Water 1 100ml.bag @ 100 mls/hr IVPB Q1H [facility] Rx#: [id number] Potassium Chloride 10 meq 100 In Water For Injection 1 100ml.bag @ 100 mls/hr IVPB Q1HR [facility] Rx#: [id number] Potassium Chloride 10 meq 200 In Water For Injection 1 100ml.bag @ 100 mls/hr IVPB Q1HR [facility] Rx#: [id number] Oral 200 Output: Urine 1500 875 45 Other: Voiding Method Indwelling Catheter Indwelling Catheter Indwelling Catheter # Bowel Movements 1 1 - Exam patient is awake, comfortable, no acute distress. She is confused on and off. Examination of the heart S1 and S2 Examination of the lungs bilateral breath sounds are heard Abdomen is soft nontender Examination lower extremity shows no edema. - Labs CBC & Chem 7: 10/21/23 04:28 10/21/23 04:28 Labs: Abnormal Lab Results - Last 24 Hours (Table) 10/20/23 10/20/23 10/20/23 Range/Units 00:00 01:11 09:37 Plt Count 134 L (150-450) k/uL Lymphocytes # 0.5 L (1.0-4.8) k/uL D-Dimer (<0.60) mg/L FEU Sodium (137-145) mmol/L Potassium (3.5-5.1) mmol/L Chloride (98-107) mmol/L Carbon Dioxide (22-30) mmol/L BUN (7-17) mg/dL Creatinine (0.52-1.04) mg/dL Glucose (74-99) mg/dL POC Glucose (mg/dL) (70-110) mg/dL Osmolality 233 A* (275-295) mOsm/kg Calcium (8.4-10.2) mg/dL Magnesium (1.6-2.3) mg/dL AST (14-36) U/L ALT (4-34) U/L Total Protein (6.3-8.2) g/dL Urine Osmolality 285 L (400-1100) mOsm/kg 10/20/23 10/20/23 10/20/23 Range/Units 09:37 15:40 16:38 Plt Count (150-450) k/uL Lymphocytes # (1.0-4.8) k/uL D-Dimer (<0.60) mg/L FEU Sodium 114 L* 117 L* (137-145) mmol/L Potassium 2.9 L 2.9 L (3.5-5.1) mmol/L Chloride 85 L (98-107) mmol/L Carbon Dioxide (22-30) mmol/L BUN <2 L (7-17) mg/dL Creatinine 0.36 L (0.52-1.04) mg/dL Glucose 100 H (74-99) mg/dL POC Glucose (mg/dL) 112 H (70-110) mg/dL Osmolality (275-295) mOsm/kg Calcium 8.0 L (8.4-10.2) mg/dL Magnesium 1.2 L (1.6-2.3) mg/dL AST 127 H (14-36) U/L ALT 46 H (4-34) U/L Total Protein (6.3-8.2) g/dL Urine Osmolality (400-1100) mOsm/kg 10/20/23 10/20/23 10/20/23 Range/Units 21:45 21:45 22:07 Plt Count (150-450) k/uL Lymphocytes # (1.0-4.8) k/uL D-Dimer 1.12 H (<0.60) mg/L FEU Sodium 123 L (137-145) mmol/L Potassium (3.5-5.1) mmol/L Chloride (98-107) mmol/L Carbon Dioxide (22-30) mmol/L BUN (7-17) mg/dL Creatinine (0.52-1.04) mg/dL Glucose (74-99) mg/dL POC Glucose (mg/dL) 120 H (70-110) mg/dL Osmolality (275-295) mOsm/kg Calcium (8.4-10.2) mg/dL Magnesium (1.6-2.3) mg/dL AST (14-36) U/L ALT (4-34) U/L Total Protein (6.3-8.2) g/dL Urine Osmolality (400-1100) mOsm/kg 10/21/23 10/21/23 Range/Units 04:28 04:28 Plt Count 136 L (150-450) k/uL Lymphocytes # 0.6 L (1.0-4.8) k/uL D-Dimer (<0.60) mg/L FEU Sodium 124 L (137-145) mmol/L Potassium (3.5-5.1) mmol/L Chloride (98-107) mmol/L Carbon Dioxide 18 L (22-30) mmol/L BUN 3 L (7-17) mg/dL Creatinine 0.46 L (0.52-1.04) mg/dL Glucose 113 H (74-99) mg/dL POC Glucose (mg/dL) (70-110) mg/dL Osmolality (275-295) mOsm/kg Calcium (8.4-10.2) mg/dL Magnesium (1.6-2.3) mg/dL AST 109 H (14-36) U/L ALT 45 H (4-34) U/L Total Protein 6.1 L (6.3-8.2) g/dL Urine Osmolality (400-1100) mOsm/kg Assessment and Plan Assessment: 1. Severe hyponatremia, hypovolemic and associated with alcohol abuse along with low urinary solute. Urine osmolality at 285 with random urine sodium at 83. status post 3% saline 2. EtOH abuse 3. Altered mentation secondary to hyponatremia 4. History of marijuana use. Plan: continue off of 3% saline. Repeat sodium later this afternoon. replace potassium
--- NOTE | 2023-10-21 11:07 | P.PN ---
Subjective Progress Note Date: 10/21/23 Principal diagnosis: Alcohol withdrawal syndrome. Pulmonary consult dated October 20, 2023. 58-year-old female seen in the emergency room, October 19, 2023. The patient apparently presented with anxiety, and mental status changes. She was brought in by EMS. In addition, the patient apparently had been having some nausea and vomiting, and was not acting herself. Apparently most of the history was obtained from the . In addition, the patient apparently displayed some seizure-like activity, and received some Ativan. The patient is a heavy drinker, drinking 6 beers a day, and 1 pint of tequila every day. Currently, the patient is on saline at KVO, and she is also getting 3% saline at 35 cc an hour. She is also getting nasal O2 2 L. Today sodium is 111. Admission sodium was 107. The patient has a history of chronic alcoholism, fibromyalgia, diabetes, cocaine use, and marijuana use. White count 9.1, hemoglobin 14.3, hematocrit 41.3, and platelet count 178,000. Coagulation studies are normal. Sodium 111, potassium 3.2, chloride 74, CO2 22, BUN 2, and creatinine 0.34. Glucose 167. Lactic acid 4.1, with repeat lactic acid 1.7. AST is 109. ALT is 45. TSH is normal. Urinalysis suggest the possibility of urinary tract infection. Drug screen was positive for benzodiazepines, and marijuana. She tested negative for influenza, RSV, and coronavirus. Progress note dated October 21, 2023. 58-year-old female seen yesterday in consultation. Please see the note above. The patient is seen today in room 258. She is on 2 L of oxygen. She is not receiving any IV fluids. Clinically, she is much better. According to the patient, she drinks 2 beers a day, and 1/2 pint of tequila every day. Current labs include a white count 5.7, hemoglobin 14.5, hematocrit 43.9, and a platelet count of 136,000. Sodium 124, up from 117, potassium 3.5, chlorides 101, CO2 18, BUN 3, creatinine 0.46. Glucose is 108. AST is 109. ALT is 45. Cortisol is 19.5. Objective - Vital Signs Vital signs: Vital Signs Temp 97.8 F 10/21/23 08:00 Pulse 106 H 10/21/23 09:00 Resp 27 H 10/21/23 09:00 BP 114/71 10/21/23 09:00 Pulse Ox 97 10/21/23 09:00 FiO2 Intake & Output 10/20/23 10/21/23 10/21/23 18:59 06:59 18:59 Intake Total 1325 110 10 Output Total 1500 875 45 Balance -175 -765 -35 Weight 61.235 kg Intake: IV 425 110 10 0.9NS 110 110 10 Sodium Chloride 3%( 315 Hypertonic) 500 ml @ 30 mls/hr IV .[id number] [facility] Rx #:[id number] Intake, IV Titration 700 Amount Magnesium Sulfate-D5w Pmx 400 1 gm In Dextrose/Water 1 100ml.bag @ 100 mls/hr IVPB Q1H [facility] Rx#: [id number] Potassium Chloride 10 meq 100 In Water For Injection 1 100ml.bag @ 100 mls/hr IVPB Q1HR [facility] Rx#: [id number] Potassium Chloride 10 meq 200 In Water For Injection 1 100ml.bag @ 100 mls/hr IVPB Q1HR [facility] Rx#: [id number] Oral 200 Output: Urine 1500 875 45 Other: Voiding Method Indwelling Catheter Indwelling Catheter Indwelling Catheter # Bowel Movements 1 1 - Exam No acute distress, somnolent/lethargic. 2 L saturation is 97 %. HEENT examination is grossly unremarkable. Mucous membranes dry. Neck supple. Full range of motion. No adenopathy thyromegaly or neck vein distention. Cardiovascular examination reveals regular rhythm rate. S1-S2 normal. No S3 or S4. No discernible murmur noted. Heart rate 101 bpm. Lungs mostly clear breath sounds. Scattered rhonchi. No wheezes or crackles. Breath sounds equal. She does not take deep breaths. Abdomen soft without bowel sounds. No masses or tenderness. Extremities are intact. No cyanosis clubbing or edema. Skin is without rash or lesion. Neurologic examination is brief but nonfocal. - Labs CBC & Chem 7: 10/21/23 04:28 10/21/23 04:28 Labs: Abnormal Lab Results - Last 24 Hours (Table) 10/20/23 10/20/23 10/20/23 Range/Units 15:40 16:38 21:45 Plt Count (150-450) k/uL Lymphocytes # (1.0-4.8) k/uL D-Dimer 1.12 H (<0.60) mg/L FEU Sodium 117 L* (137-145) mmol/L Potassium 2.9 L (3.5-5.1) mmol/L Carbon Dioxide (22-30) mmol/L BUN (7-17) mg/dL Creatinine (0.52-1.04) mg/dL Glucose (74-99) mg/dL POC Glucose (mg/dL) 112 H (70-110) mg/dL AST (14-36) U/L ALT (4-34) U/L Total Protein (6.3-8.2) g/dL 10/20/23 10/20/23 10/21/23 Range/Units 21:45 22:07 04:28 Plt Count (150-450) k/uL Lymphocytes # (1.0-4.8) k/uL D-Dimer (<0.60) mg/L FEU Sodium 123 L 124 L (137-145) mmol/L Potassium (3.5-5.1) mmol/L Carbon Dioxide 18 L (22-30) mmol/L BUN 3 L (7-17) mg/dL Creatinine 0.46 L (0.52-1.04) mg/dL Glucose 113 H (74-99) mg/dL POC Glucose (mg/dL) 120 H (70-110) mg/dL AST 109 H (14-36) U/L ALT 45 H (4-34) U/L Total Protein 6.1 L (6.3-8.2) g/dL 10/21/23 Range/Units 04:28 Plt Count 136 L (150-450) k/uL Lymphocytes # 0.6 L (1.0-4.8) k/uL D-Dimer (<0.60) mg/L FEU Sodium (137-145) mmol/L Potassium (3.5-5.1) mmol/L Carbon Dioxide (22-30) mmol/L BUN (7-17) mg/dL Creatinine (0.52-1.04) mg/dL Glucose (74-99) mg/dL POC Glucose (mg/dL) (70-110) mg/dL AST (14-36) U/L ALT (4-34) U/L Total Protein (6.3-8.2) g/dL Assessment and Plan Assessment: Severe hyponatremia, likely with a component of beer potomania. Questionable seizure, secondary to hyponatremia. History of chronic alcohol and drug use/abuse. Rule out urinary tract infection/acute cystitis. History of diabetes mellitus. History of marijuana use. History of cocaine use. History of fibromyalgia. Plan: Plan dated October 20, 2023. The patient is seen in the intensive care unit, room 258. The patient is getting saline at KVO, and 3% saline at 35 cc an hour. Her most recent sodium level was 111. Her admission level was 107. She is on 2 L of oxygen. The patient apparently drinks 6 beers a day, or maybe more, and also drinks 1 pint of tequila every day. Labs, x-rays, medications are reviewed. Prognosis is guarded. The patient apparently also possibly had a seizure. We will continue to follow the patient, make recommendations along the way. Plan dated October 21, 2023. According to the nurse, overnight, the patient only received Ativan 1 time. Her labs today are better. Clinically she is stable. She is on 2 L. Saturations are 97%. She does not appear to be going through active withdrawal at this time. We will continue to monitor her closely. Labs, x-rays, and medications are reviewed. The patient may be stable enough to be transferred up to the general medical floor. Will make that decision sometime later today. Prognosis is currently guarded. Time with Patient: Less than 30
[2023-10-21 12:00] LABS: Glucose,Whole Blood 105 mg/dL (70-110)
--- NOTE | 2023-10-21 13:07 | P.PN ---
Subjective Progress Note Date: 10/21/23 This is a 58-year-old female with medical history significant for diabetes mellitus, migraines, fibromyalgia, anxiety/depression, daily alcohol use, patient is a every day smoker with history of polysubstance abuse with cocaine and marijuana. Patient was brought into the hospital by EMS with reported praveen rns of anxiety and shortness of breath. Patient in the ER on initial assessment was noted to have seizure-like activity was given 2 mg of IM Ativan. Patient is alert and oriented x 1 at this time and is significantly agitated and restless. She does endorse daily alcohol use states she drinks 2 beers per day. Due to the confusion unable to gather a detailed history from the patient. The rest of the medical history was taken from patients who states she battles with chronic pain and uses alcohol as a method of pain control. Has not been to see a physician in over 4 years. admits to patient drinking "4 tall boys" per day additionally will drink liquor as well. States she has quit smoking over 2 weeks ago due to shortness of breath and unable to take a deep breath. Denies any cough, fever or chills. States there have been no recent sick contacts. Brain CT shows no acute intracranial hemorrhage midline shift or mass effect. Chest xray shows no acute cardiopulmonary process. EKG shows sinus tachycardia and moderate ST depression. Rate of 109. She was severely hyponatremic on admission with a sodium level of 117, potassium of 3.2, chloride of 74, lactic acid of 4.1, magnesium level is 1.2, bilirubin is 1.4 AST ALT are elevated. Urinalysis showing large leukocyte esterase and many bacteria. Urine drug toxicology at this time is positive for benzodiazepines and marijuana. Viral panel is negative. Patient was started on 3% normal saline infusion and admitted to the intensive care unit with consults placed to nephrology and neurology services. 10/21/2023 Patient is evaluated in follow up in the ICU patient is more awake and alert. Sodium level up to 124 and has been taken off the 3% saline gtt. patient remains on oxygen via nasal cannula with 2 L. Received 1 mg of IV Ativan overnight and does not appear to be actively withdrawing at this time. No further reports of seizure-like activity. Nephrology following. Patient has been downgraded out of the ICU to the general medical floor. Review of Systems Constitutional: Denied any fatigue denied any fever. Cardio vascular: denied any chest pain, palpitations Gastrointestinal: denied any nausea, vomiting, diarrhea Pulmonary: Denied any shortness of breath cough Neurologic denied any new focal deficits All inpatient medications were reviewed and appropriate changes in these medications as dictated in the interval history and assessment and plan. PHYSICAL EXAMINATION: GENERAL: The patient is alert and oriented x2-3, not in any acute distress. Well developed, well nourished. HEENT: Pupils are round and equally reacting to light. EOMI. No scleral icterus. No conjunctival pallor. Normocephalic, atraumatic. No pharyngeal erythema. No thyromegaly. CARDIOVASCULAR: S1 and S2 present. No murmurs, rubs, or gallops. PULMONARY: Chest is clear to auscultation, no wheezing or crackles. ABDOMEN: Soft, nontender, nondistended, normoactive bowel sounds. No palpable organomegaly. MUSCULOSKELETAL: No joint swelling or deformity. EXTREMITIES: No cyanosis, clubbing, or pedal edema. NEUROLOGICAL: Gross neurological examination did not reveal any focal deficits. SKIN: No rashes. Assessment and Plan Altered mental status secondary to acute metabolic encephalopathy due to the hyponatremia, improving Rule out seizure-like activity seizure could be related to the low sodium level as well as alcohol withdrawal seizure neurology has been consulted for further evaluation Chronic alcoholism patient has been started on Ativan CIWA protocol and monitor for withdrawal symptoms patient is in seizure precautions Hyponatremia like from poor oral intake exacerbated by alcohol use; component of beer potomania treated with 3% saline which has been discontinued at this time sodium improved up to 124 Hypokalemia and Hypomagnesemia supplemented and will have normalized Diabetes mellitus type 2 diet controlled accuchecks ACHS and sliding scale ordered, check an A1C level Shortness of breath; elevated D-Dimer will check a CTA rule out pulmonary embolism. History of fibromyalgia Degenerative disc disease and chronic back pain Anxiety/depression Chronic nicotine use quit 2 weeks ago Polysubstance abuse with history of cocaine and marijuana use Chronic avascular necrosis per the GI prophylaxis: pepcid DVT prophylaxis: heparin subcu Full Code Patient has been downgraded out of the ICU to the medical floor pending a bed. Nephrology following the sodium level and will repeat levels later this afternoon. Check a CT aniography of the chest to rule out pulmonary embolism. PT/OT to evaluate the patient. BMP in the AM. The impression and plan of care has been dictated by Geneva Samuels Nurse Practitioner as directed. Dr. Lakesha MD I have performed a history and physical examination and medical decision making of this patient, discussed the same with the dictator, and agree with the dictators assessment and plan as written, documented as a scribe. Based on total visit time, I have performed more than 50% of this visit. Objective - Vital Signs Vital signs: Vital Signs Temp 98.4 F 10/21/23 04:00 Pulse 105 H 10/21/23 07:00 Resp 19 10/21/23 07:00 BP 107/73 10/21/23 07:00 Pulse Ox 96 10/21/23 07:00 FiO2 Intake & Output 10/20/23 10/21/23 10/21/23 18:59 06:59 18:59 Intake Total 1325 110 10 Output Total 1500 875 45 Balance -175 -765 -35 Weight 61.235 kg Intake: IV 425 110 10 0.9NS 110 110 10 Sodium Chloride 3%( 315 Hypertonic) 500 ml @ 30 mls/hr IV .[id number] [facility] Rx #:[id number] Intake, IV Titration 700 Amount Magnesium Sulfate-D5w Pmx 400 1 gm In Dextrose/Water 1 100ml.bag @ 100 mls/hr IVPB Q1H [facility] Rx#: [id number] Potassium Chloride 10 meq 100 In Water For Injection 1 100ml.bag @ 100 mls/hr IVPB Q1HR [facility] Rx#: [id number] Potassium Chloride 10 meq 200 In Water For Injection 1 100ml.bag @ 100 mls/hr IVPB Q1HR [facility] Rx#: [id number] Oral 200 Output: Urine 1500 875 45 Other: Voiding Method Indwelling Catheter Indwelling Catheter Indwelling Catheter # Bowel Movements 1 1 - Labs CBC & Chem 7: 10/21/23 04:28 10/21/23 04:28 Labs: Abnormal Lab Results - Last 24 Hours (Table) 10/20/23 10/20/23 10/20/23 Range/Units 00:00 01:11 09:37 Plt Count 134 L (150-450) k/uL Lymphocytes # 0.5 L (1.0-4.8) k/uL D-Dimer (<0.60) mg/L FEU Sodium (137-145) mmol/L Potassium (3.5-5.1) mmol/L Chloride (98-107) mmol/L Carbon Dioxide (22-30) mmol/L BUN (7-17) mg/dL Creatinine (0.52-1.04) mg/dL Glucose (74-99) mg/dL POC Glucose (mg/dL) (70-110) mg/dL Osmolality 233 A* (275-295) mOsm/kg Calcium (8.4-10.2) mg/dL Magnesium (1.6-2.3) mg/dL AST (14-36) U/L ALT (4-34) U/L Total Protein (6.3-8.2) g/dL Urine Osmolality 285 L (400-1100) mOsm/kg 10/20/23 10/20/23 10/20/23 Range/Units 09:37 15:40 16:38 Plt Count (150-450) k/uL Lymphocytes # (1.0-4.8) k/uL D-Dimer (<0.60) mg/L FEU Sodium 114 L* 117 L* (137-145) mmol/L Potassium 2.9 L 2.9 L (3.5-5.1) mmol/L Chloride 85 L (98-107) mmol/L Carbon Dioxide (22-30) mmol/L BUN <2 L (7-17) mg/dL Creatinine 0.36 L (0.52-1.04) mg/dL Glucose 100 H (74-99) mg/dL POC Glucose (mg/dL) 112 H (70-110) mg/dL Osmolality (275-295) mOsm/kg Calcium 8.0 L (8.4-10.2) mg/dL Magnesium 1.2 L (1.6-2.3) mg/dL AST 127 H (14-36) U/L ALT 46 H (4-34) U/L Total Protein (6.3-8.2) g/dL Urine Osmolality (400-1100) mOsm/kg 10/20/23 10/20/23 10/20/23 Range/Units 21:45 21:45 22:07 Plt Count (150-450) k/uL Lymphocytes # (1.0-4.8) k/uL D-Dimer 1.12 H (<0.60) mg/L FEU Sodium 123 L (137-145) mmol/L Potassium (3.5-5.1) mmol/L Chloride (98-107) mmol/L Carbon Dioxide (22-30) mmol/L BUN (7-17) mg/dL Creatinine (0.52-1.04) mg/dL Glucose (74-99) mg/dL POC Glucose (mg/dL) 120 H (70-110) mg/dL Osmolality (275-295) mOsm/kg Calcium (8.4-10.2) mg/dL Magnesium (1.6-2.3) mg/dL AST (14-36) U/L ALT (4-34) U/L Total Protein (6.3-8.2) g/dL Urine Osmolality (400-1100) mOsm/kg 10/21/23 10/21/23 Range/Units 04:28 04:28 Plt Count 136 L (150-450) k/uL Lymphocytes # 0.6 L (1.0-4.8) k/uL D-Dimer (<0.60) mg/L FEU Sodium 124 L (137-145) mmol/L Potassium (3.5-5.1) mmol/L Chloride (98-107) mmol/L Carbon Dioxide 18 L (22-30) mmol/L BUN 3 L (7-17) mg/dL Creatinine 0.46 L (0.52-1.04) mg/dL Glucose 113 H (74-99) mg/dL POC Glucose (mg/dL) (70-110) mg/dL Osmolality (275-295) mOsm/kg Calcium (8.4-10.2) mg/dL Magnesium (1.6-2.3) mg/dL AST 109 H (14-36) U/L ALT 45 H (4-34) U/L Total Protein 6.1 L (6.3-8.2) g/dL Urine Osmolality (400-1100) mOsm/kg Assessment and Plan Time with Patient: Less than 30
[2023-10-21] MEDS: POTASSIUM CHLORIDE ER 20 MEQ TAB.ER PO STA (14:15)
[2023-10-21 16:43] LABS: Glucose,Whole Blood 98 mg/dL (70-110)
[2023-10-21 22:13] LABS: Glucose,Whole Blood 127 mg/dL (70-110)
[2023-10-22 06:55] LABS: Glucose,Whole Blood 113 mg/dL (70-110)
--- NOTE | 2023-10-22 08:18 | P.PN ---
Subjective Progress Note Date: 10/22/23 Principal diagnosis: Alcohol withdrawal syndrome. Pulmonary consult dated October 20, 2023. 58-year-old female seen in the emergency room, October 19, 2023. The patient apparently presented with anxiety, and mental status changes. She was brought in by EMS. In addition, the patient apparently had been having some nausea and vomiting, and was not acting herself. Apparently most of the history was obtained from the . In addition, the patient apparently displayed some seizure-like activity, and received some Ativan. The patient is a heavy drinker, drinking 6 beers a day, and 1 pint of tequila every day. Currently, the patient is on saline at KVO, and she is also getting 3% saline at 35 cc an hour. She is also getting nasal O2 2 L. Today sodium is 111. Admission sodium was 107. The patient has a history of chronic alcoholism, fibromyalgia, diabetes, cocaine use, and marijuana use. White count 9.1, hemoglobin 14.3, hematocrit 41.3, and platelet count 178,000. Coagulation studies are normal. Sodium 111, potassium 3.2, chloride 74, CO2 22, BUN 2, and creatinine 0.34. Glucose 167. Lactic acid 4.1, with repeat lactic acid 1.7. AST is 109. ALT is 45. TSH is normal. Urinalysis suggest the possibility of urinary tract infection. Drug screen was positive for benzodiazepines, and marijuana. She tested negative for influenza, RSV, and coronavirus. Progress note dated October 21, 2023. 58-year-old female seen yesterday in consultation. Please see the note above. The patient is seen today in room 258. She is on 2 L of oxygen. She is not receiving any IV fluids. Clinically, she is much better. According to the patient, she drinks 2 beers a day, and 1/2 pint of tequila every day. Current labs include a white count 5.7, hemoglobin 14.5, hematocrit 43.9, and a platelet count of 136,000. Sodium 124, up from 117, potassium 3.5, chlorides 101, CO2 18, BUN 3, creatinine 0.46. Glucose is 108. AST is 109. ALT is 45. Cortisol is 19.5. Progress note dated October 22, 2023. 58-year-old female who was initially admitted to the ICU, with possible alcohol withdrawal syndrome, and hyponatremia. The patient was transferred out of the intensive care unit, yesterday. She is currently seen in room 465. She is not on any oxygen, and she is not receiving any IV fluids. The patient has no specific complaints today. The patient denies any shortness of breath, cough, wheezing, chest tightness, chest pain, or chest pressure. Laboratory data today includes a glucose of 113. Her most recent sodium was 125, which was yesterday. Objective - Vital Signs Vital signs: Vital Signs Temp 98.0 F 10/22/23 06:49 Pulse 109 H 10/22/23 06:49 Resp 19 10/22/23 06:49 BP 121/82 10/22/23 06:49 Pulse Ox 99 10/22/23 06:49 FiO2 Intake & Output 10/21/23 10/22/23 10/22/23 18:59 06:59 18:59 Intake Total 10 Output Total 45 Balance -35 Intake: IV 10 0.9NS 10 Output: Urine 45 Other: Voiding Method Indwelling Catheter # Voids 1 3 - Exam No acute distress, alert. Room air saturation is 99 %. HEENT examination is grossly unremarkable. Mucous membranes dry. Neck supple. Full range of motion. No adenopathy thyromegaly or neck vein distention. Cardiovascular examination reveals regular rhythm rate. S1-S2 normal. No S3 or S4. No discernible murmur noted. Heart rate 89 bpm. Lungs mostly clear breath sounds. Scattered rhonchi. No wheezes or crackles. Breath sounds equal. Room air saturation is 99%. Abdomen soft without bowel sounds. No masses or tenderness. Extremities are intact. No cyanosis clubbing or edema. Skin is without rash or lesion. Neurologic examination is brief but nonfocal. - Labs CBC & Chem 7: 10/21/23 04:28 10/21/23 16:40 Labs: Abnormal Lab Results - Last 24 Hours (Table) 10/21/23 10/21/23 10/22/23 Range/Units 16:40 22:12 06:54 Sodium 125 L (137-145) mmol/L POC Glucose (mg/dL) 127 H 113 H (70-110) mg/dL Assessment and Plan Assessment: Severe hyponatremia, likely with a component of beer potomania. Questionable seizure, secondary to hyponatremia. History of chronic alcohol and drug use/abuse. Rule out urinary tract infection/acute cystitis. History of diabetes mellitus. History of marijuana use. History of cocaine use. History of fibromyalgia. Plan: Plan dated October 20, 2023. The patient is seen in the intensive care unit, room 258. The patient is getting saline at KVO, and 3% saline at 35 cc an hour. Her most recent sodium level was 111. Her admission level was 107. She is on 2 L of oxygen. The patient apparently drinks 6 beers a day, or maybe more, and also drinks 1 pint of tequila every day. Labs, x-rays, medications are reviewed. Prognosis is guarded. The patient apparently also possibly had a seizure. We will continue to follow the patient, make recommendations along the way. Plan dated October 21, 2023. According to the nurse, overnight, the patient only received Ativan 1 time. Her labs today are better. Clinically she is stable. She is on 2 L. Saturations are 97%. She does not appear to be going through active withdrawal at this time. We will continue to monitor her closely. Labs, x-rays, and medications are reviewed. The patient may be stable enough to be transferred up to the general medical floor. Will make that decision sometime later today. Prognosis is currently guarded. Plan dated October 22, 2023. The patient was seen in the intensive care unit yesterday. The patient was transferred out to the general medical floor. Her most recent sodium was 125. The patient is not having any difficulty breathing, coughing, wheezing, chest pain or pressure, or any other complaints for that matter. Labs, x-rays, medications are reviewed. The patient is not manifesting any signs or symptoms of alcohol withdrawal syndrome. We will continue to follow. Prognosis is guar ded. Time with Patient: Less than 30
[2023-10-22] MEDS: ACETAMINOPHEN TAB 325 MG TAB PO PRN (09:42)
[2023-10-22] MEDS: METOPROLOL TARTRATE 12.5 MG TAB PO SCH (09:42)
[2023-10-22 09:50] LABS: Blood Urea Nitrogen 4.2 mg/dL (9.0-27.0); Carbon Dioxide 16.3 mmol/L (21.6-31.8); Chloride 99 mmol/L (96-109); Glucose 106 mg/dL (70-110); Potassium 3.2 mmol/L (3.5-5.5); Sodium 131 mmol/L (135-145)
[2023-10-22 09:51] LABS: Calcium 9.2 mg/dL (8.7-10.3)
--- NOTE | 2023-10-22 10:51 | P.PN ---
Subjective patient is seen for follow-up for hyponatremia. Status post 3% saline. Serum sodium improved to 131 today. Mentation appears to be close to normal now. No further seizures reported. Objective - Vital Signs Vital signs: Vital Signs Temp 98.0 F 10/22/23 06:49 Pulse 109 H 10/22/23 06:49 Resp 19 10/22/23 06:49 BP 121/82 10/22/23 06:49 Pulse Ox 99 10/22/23 06:49 FiO2 Intake & Output 10/21/23 10/22/23 10/22/23 18:59 06:59 18:59 Intake Total 10 Output Total 45 Balance -35 Intake: IV 10 0.9NS 10 Output: Urine 45 Other: Voiding Method Indwelling Catheter # Voids 1 3 - Exam patient is awake, comfortable, no acute distress. She is confused on and off. Examination of the heart S1 and S2 Examination of the lungs bilateral breath sounds are heard Abdomen is soft nontender Examination lower extremity shows no edema. - Labs CBC & Chem 7: 10/21/23 04:28 10/22/23 04:41 Labs: Abnormal Lab Results - Last 24 Hours (Table) 10/21/23 10/21/23 10/22/23 Range/Units 16:40 22:12 04:41 Sodium 125 L 131 L (137-145) mmol/L Potassium 3.2 L (3.5-5.5) mmol/L Carbon Dioxide 16.3 L (21.6-31.8) mmol/L Anion Gap 15.70 H (4.00-12.00) mmol/L BUN 4.2 L (9.0-27.0) mg/dL Creatinine 0.5 L (0.6-1.5) mg/dL BUN/Creatinine Ratio 8.40 L (12.00-20.00) Ratio POC Glucose (mg/dL) 127 H (70-110) mg/dL 10/22/23 Range/Units 06:54 Sodium (137-145) mmol/L Potassium (3.5-5.5) mmol/L Carbon Dioxide (21.6-31.8) mmol/L Anion Gap (4.00-12.00) mmol/L BUN (9.0-27.0) mg/dL Creatinine (0.6-1.5) mg/dL BUN/Creatinine Ratio (12.00-20.00) Ratio POC Glucose (mg/dL) 113 H (70-110) mg/dL Assessment and Plan Assessment: 1. Severe hyponatremia, hypovolemic and associated with alcohol abuse along with low urinary solute. Urine osmolality at 285 with random urine sodium at 83. status post 3% saline. Tolerating oral intake. 2. EtOH abuse 3. Altered mentation secondary to hyponatremia 4. History of marijuana use. 5. Hypokalemia secondary to decreased oral intake. Magnesium was low on admission repeat level was 2.3 on 10/21/2023. Plan: Continue off of IV fluids. Repeat sodium in a.m. replace potassium
--- NOTE | 2023-10-22 11:22 | P.PN ---
Subjective Progress Note Date: 10/21/23 Patient was seen for a follow-up. Patient complaining of pain in the rib cage because she states that she broke one of the rib. Patient otherwise mentation has improved. Patient is laying comfortably in the bed. Objective - Vital Signs Vital signs: Vital Signs Temp 98.3 F 10/21/23 18:31 Pulse 110 H 10/21/23 18:31 Resp 16 10/21/23 18:31 BP 110/75 10/21/23 18:31 Pulse Ox 96 10/21/23 18:31 FiO2 Intake & Output 10/21/23 10/21/23 10/22/23 06:59 18:59 06:59 Intake Total 110 10 Output Total 875 45 Balance -765 -35 Intake: IV 110 10 0.9NS 110 10 Output: Urine 875 45 Other: Voiding Method Indwelling Catheter Indwelling Catheter # Voids 1 # Bowel Movements 1 - Exam Patient is alert and awake. She knows that she was born in [birth year]. She knows it is October and the year is and that she is in [facility] in [facility]. She thinks it is Monday (actually Monday). Mentation otherwise normal. - Labs CBC & Chem 7: 10/21/23 04:28 10/22/23 04:41 Labs: Abnormal Lab Results - Last 24 Hours (Table) 10/20/23 10/20/23 10/20/23 Range/Units 21:45 21:45 22:07 Plt Count (150-450) k/uL Lymphocytes # (1.0-4.8) k/uL D-Dimer 1.12 H (<0.60) mg/L FEU Sodium 123 L (137-145) mmol/L Carbon Dioxide (22-30) mmol/L BUN (7-17) mg/dL Creatinine (0.52-1.04) mg/dL Glucose (74-99) mg/dL POC Glucose (mg/dL) 120 H (70-110) mg/dL AST (14-36) U/L ALT (4-34) U/L Total Protein (6.3-8.2) g/dL 10/21/23 10/21/23 10/21/23 Range/Units 04:28 04:28 16:40 Plt Count 136 L (150-450) k/uL Lymphocytes # 0.6 L (1.0-4.8) k/uL D-Dimer (<0.60) mg/L FEU Sodium 124 L 125 L (137-145) mmol/L Carbon Dioxide 18 L (22-30) mmol/L BUN 3 L (7-17) mg/dL Creatinine 0.46 L (0.52-1.04) mg/dL Glucose 113 H (74-99) mg/dL POC Glucose (mg/dL) (70-110) mg/dL AST 109 H (14-36) U/L ALT 45 H (4-34) U/L Total Protein 6.1 L (6.3-8.2) g/dL Assessment and Plan Assessment: * Altered mental status, due to metabolic encephalopathy. Reasons multifactor ial as mentioned below. * New onset seizure, likely provoked due to reasons mentioned below. * Hyponatremia with sodium 107, now improved 125. * Hypokalemia, resolved, potassium 3.5 * Possible hepatic encephalopathy with elevated ammonia 58 * Elevated lactate 4.1 * Abnormal liver functions * Acute UTI * Alcoholism * Marijuana use * Fibromyalgia Plan: * Patient has acute hyponatremia. Nephrology on board. Sodium has improved now 125. Patient on hypertonic saline. * Seizure was likely provoked due to severe metabolic derangement. No indication for EEG. No evidence of status. Patient's mental status is much improving. * [facility] protocol. * Continue thiamine, folic acid, multivitamins. * Other medical management as per IM and other specialties on board. * Recommend abstinence from alcoholism and polysubstance. * Neurologically clear. Please reconsult neurology if any other concerns.
[2023-10-22 11:54] LABS: Glucose,Whole Blood 99 mg/dL (70-110)
[2023-10-22] MEDS: POTASSIUM CHLORIDE ER 20 MEQ TAB.ER PO SCH (11:59)
--- NOTE | 2023-10-22 13:27 | P.PN ---
Subjective Progress Note Date: 10/22/23 This is a 58-year-old female with medical history significant for diabetes mellitus, migraines, fibromyalgia, anxiety/depression, daily alcohol use, patient is a every day smoker with history of polysubstance abuse with cocaine and marijuana. Patient was brought into the hospital by EMS with reported praveen rns of anxiety and shortness of breath. Patient in the ER on initial assessment was noted to have seizure-like activity was given 2 mg of IM Ativan. Patient is alert and oriented x 1 at this time and is significantly agitated and restless. She does endorse daily alcohol use states she drinks 2 beers per day. Due to the confusion unable to gather a detailed history from the patient. The rest of the medical history was taken from patients who states she battles with chronic pain and uses alcohol as a method of pain control. Has not been to see a physician in over 4 years. admits to patient drinking "4 tall boys" per day additionally will drink liquor as well. States she has quit smoking over 2 weeks ago due to shortness of breath and unable to take a deep breath. Denies any cough, fever or chills. States there have been no recent sick contacts. Brain CT shows no acute intracranial hemorrhage midline shift or mass effect. Chest xray shows no acute cardiopulmonary process. EKG shows sinus tachycardia and moderate ST depression. Rate of 109. She was severely hyponatremic on admission with a sodium level of 117, potassium of 3.2, chloride of 74, lactic acid of 4.1, magnesium level is 1.2, bilirubin is 1.4 AST ALT are elevated. Urinalysis showing large leukocyte esterase and many bacteria. Urine drug toxicology at this time is positive for benzodiazepines and marijuana. Viral panel is negative. Patient was started on 3% normal saline infusion and admitted to the intensive care unit with consults placed to nephrology and neurology services. 10/21/2023 Patient is evaluated in follow up in the ICU patient is more awake and alert. Sodium level up to 124 and has been taken off the 3% saline gtt. patient remains on oxygen via nasal cannula with 2 L. Received 1 mg of IV Ativan overnight and does not appear to be actively withdrawing at this time. No further reports of seizure-like activity. Nephrology following. Patient has been downgraded out of the ICU to the general medical floor. Patient is pending PT/OT evaluation. Wants to go home. States she stopped seeing medical doctors because she did not want surgery on her hip and did not want to be on pain medications for her chronic pain. States she drinks tequila daily and verbalizes an understanding of the need to cut back. 10/22/2023 Patient is evaluated today in follow up. She is alert x 3. Sodium level has improved currently 131. Potassium 3.2. Review of Systems Constitutional: Denied any fatigue denied any fever. Cardio vascular: denied any chest pain, palpitations Gastrointestinal: denied any nausea, vomiting, diarrhea Pulmonary: Denied any shortness of breath cough Neurologic denied any new focal deficits All inpatient medications were reviewed and appropriate changes in these medications as dictated in the interval history and assessment and plan. PHYSICAL EXAMINATION: GENERAL: The patient is alert and oriented x3, not in any acute distress. Well developed, well nourished. HEENT: Pupils are round and equally reacting to light. EOMI. No scleral icterus. No conjunctival pallor. Normocephalic, atraumatic. No pharyngeal erythema. No thyromegaly. CARDIOVASCULAR: S1 and S2 present. No murmurs, rubs, or gallops. PULMONARY: Chest is clear to auscultation, no wheezing or crackles. ABDOMEN: Soft, nontender, nondistended, normoactive bowel sounds. No palpable organomegaly. MUSCULOSKELETAL: No joint swelling or deformity. EXTREMITIES: No cyanosis, clubbing, or pedal edema. NEUROLOGICAL: Gross neurological examination did not reveal any focal deficits. SKIN: No rashes. Assessment and Plan Altered mental status secondary to acute metabolic encephalopathy due to the hyponatremia normalized. Rule out seizure-like activity seizure could be related to the low sodium level as well as alcohol withdrawal seizure neurology has been consulted for further evaluation Chronic alcoholism patient has been started on Ativan CIWA protocol and monitor for withdrawal symptoms patient is in seizure precautions Hyponatremia like from poor oral intake exacerbated by alcohol use; component of beer potomania treated with 3% saline which has been discontinued at this time sodium improved up to 131 Hypokalemia and Hypomagnesemia supplemented and will have normalized Diabetes mellitus type 2 diet controlled accuchecks ACHS and sliding scale ordered, check an A1C level Shortness of breath; elevated D-Dimer will check a CTA rule out pulmonary embolism. History of fibromyalgia Degenerative disc disease and chronic back pain Anxiety/depression Chronic nicotine use quit 2 weeks ago Polysubstance abuse with history of cocaine and marijuana use Chronic avascular necrosis per the GI prophylaxis: pepcid DVT prophylaxis: heparin subcu Full Code Nephrology following the sodium level. Check a CT aniography of the chest to rule out pulmonary embolism. PT/OT to evaluate the patient. BMP in the AM. Educated on the importance of abstinence from alcohol. The impression and plan of care has been dictated by Geneva Samuels Nurse Practitioner as directed. Dr. Lakesha MD I have performed a history and physical examination and medical decision making of this patient, discussed the same with the dictator, and agree with the dictators assessment and plan as written, documented as a scribe. Based on total visit time, I have performed more than 50% of this visit. Objective - Vital Signs Vital signs: Vital Signs Temp 98.0 F 10/22/23 06:49 Pulse 109 H 10/22/23 06:49 Resp 19 10/22/23 06:49 BP 121/82 10/22/23 06:49 Pulse Ox 99 10/22/23 06:49 FiO2 Intake & Output 10/21/23 10/22/23 10/22/23 18:59 06:59 18:59 Intake Total 10 Output Total 45 Balance -35 Intake: IV 10 0.9NS 10 Output: Urine 45 Other: Voiding Method Indwelling Catheter # Voids 1 3 - Labs CBC & Chem 7: 10/21/23 04:28 10/22/23 04:41 Labs: Abnormal Lab Results - Last 24 Hours (Table) 10/21/23 10/21/23 10/22/23 Range/Units 16:40 22:12 06:54 Sodium 125 L (137-145) mmol/L POC Glucose (mg/dL) 127 H 113 H (70-110) mg/dL Assessment and Plan Time with Patient: Less than 30
--- NOTE | 2023-10-22 14:23 | CT ---
EXAMINATION TYPE: CT angio chest CT DLP: 196.8 mGycm, Automated exposure control for dose reduction was used. DATE OF EXAM: 10/22/2023 8:46 AM COMPARISON: Chest x-ray 10/19/2023 CLINICAL INDICATION:Female, 58 years old with history of elevated D Dimer; Elevated D-dimer TECHNIQUE/CONTRAST: CTA scan of the thorax is performed with IV Contrast, patient injected with 100 ml mL of Isovue 370, MIP images are created and reviewed these are created on a separate workstation.. FINDINGS: There is adequate contrast bolus and timing. PULMONARY ARTERIES: There is no evidence for a filling defect within the pulmonary vasculature to sug gest acute pulmonary embolism. Pulmonary trunk is normal in size. Trunk measures 2.4 CM. AORTA: Mild atherosclerotic calcifications of the aorta and branches. Ascending aorta is 3.7 CM, shonna cending is 2.5 CM. Aorta is considered fusiform ectatic in the ascending segment. HEART: Normal heart size. No appreciable pericardial effusion. LOWER NECK: No significant findings. MEDIASTINUM: No enlarged nodes by CT size criteria. SOFT TISSUES/AXILLA: Unremarkable soft tissues. No axillary adenopathy. LUNGS/ PLEURA: Moderate pulmonary emphysematous changes, centrilobular pattern. Small patchy reticulo nodular and linear densities in the bilateral lower lobes, could represent atelectasis and/or infecti ous/inflammatory process. No pleural effusion or pneumothorax. AIRWAY: Central airways are patent. There appears to be some mild scattered debris within some of the small airways in the lower lobes. MUSCULOSKELETAL: There are mild degenerative changes. There are mild compression fracture deformities of T10 and T11 with mild height loss along the superior endplates, exact age indeterminate but the a ppearance suggests these to be subacute to chronic. UPPER ABDOMEN: No significant findings. IMPRESSION: 1. No evidence of pulmonary embolism. 2. Moderate pulmonary emphysematous changes. 3. Small patchy reticulonodular and linear densities in the bilateral lower lobes, could represent at electasis and/or infectious/inflammatory process. No pleural effusion or pneumothorax. 4. Some mild scattered debris within some of the small airways in the lower lobes. 5. Mild compression fracture deformities of T10 and T11, favored to be subacute to chronic. Correlate for any back pain.
[2023-10-22 16:19] LABS: Glucose,Whole Blood 123 mg/dL (70-110)
[2023-10-22 19:59] LABS: Glucose,Whole Blood 145 mg/dL (70-110)
[2023-10-22] MEDS: HYDROcodone/APAP 5-325MG 1 EACH TAB PO PRN (22:15)
[2023-10-23 06:27] LABS: Glucose,Whole Blood 109 mg/dL (70-110)
--- NOTE | 2023-10-23 11:39 | P.PN ---
Subjective Patient is seen in follow-up for hyponatremia. Sodium level 131 yesterday. No vomiting or diarrhea. Has been eating. Vital signs are stable. General: No acute distress. HEENT: Head exam is unremarkable. LUNGS: No audible rhonchi or wheezes. HEART: Rate and Rhythm are regular. ABDOMEN: Nontender. EXTREMITITES: No edema. Objective - Vital Signs Vital signs: Vital Signs Temp 97.8 F 10/23/23 07:51 Pulse 91 10/23/23 09:17 Resp 19 10/23/23 09:17 BP 113/78 10/23/23 07:51 Pulse Ox 98 10/23/23 07:51 FiO2 Intake & Output 10/22/23 10/23/23 10/23/23 18:59 06:59 18:59 Other: # Voids 1 3 - Labs CBC & Chem 7: 10/21/23 04:28 10/22/23 04:41 Labs: Abnormal Lab Results - Last 24 Hours (Table) 10/22/23 10/22/23 Range/Units 16:17 19:57 POC Glucose (mg/dL) 123 H 145 H (70-110) mg/dL Assessment and Plan Plan: Assessment: 1. Hyponatremia, hypovolemic with component of poor solute intake and alcohol abuse. Sodium level 131 yesterday. Urine sodium 83 and urine osmolality 285. Cortisol level 19.5. TSH normal. 2. Hypokalemia from poor intake. Replaced. 3. Hypomagnesemia from poor intake and alcohol abuse. Replaced. Better. 4. Metabolic acidosis from ketoacidosis. Plan: Add 1500 cc fluid restriction. Encouraged oral intake. Morning labs pending. Advised patient to maintain fluid restriction of less than 50 ounces per day and to increase protein intake upon discharge. Repeat BMP and magnesium level 2 to 3 days postdischarge. Follow-up outpatient in 1 week.
[2023-10-23 11:57] LABS: Glucose,Whole Blood 113 mg/dL (70-110)
[2023-10-23] MEDS: ALBUTEROL NEBULIZED 2.5 MG/3 ML INHALATION PRN (12:40)
[2023-10-23 13:33] LABS: African American GFR (CKD) >90 (>60 ml/min/1.73 sqM); Anion Gap 8 mmol/L; Blood Urea Nitrogen 7 mg/dL (7-17); Calcium 9.4 mg/dL (8.4-10.2); Carbon Dioxide 17 mmol/L (22-30); Chloride 104 mmol/L (98-107); Glucose 158 mg/dL (74-99); Magnesium 1.7 mg/dL (1.6-2.3); Non-African American GFR(CKD) >90 (>60 ml/min/1.73 sqM); Sodium 129 mmol/L (137-145)
[2023-10-23] MEDS: POTASSIUM CHLORIDE ER 20 MEQ TAB.ER PO STA (14:04)
[2023-10-23] MEDS: MAGNESIUM SULFATE-D5W PMX 1 GM in DEXTROSE/WATER 1 100ML.BAG IVPB ONE (14:05)
--- NOTE | 2023-10-23 16:35 | P.PN ---
Subjective Progress Note Date: 10/23/23 On 10/23/2023, seen the patient for a follow-up. The patient is a 58-year-old female patient was seen in the hospital for complications related to excessive alcohol drinking associated form of beer. The patient presented because of mental status change along with nausea and vomiting and questionable seizure activity. The patient sodium level was quite low at the time of admission and it was as low as 107. The patient was seen by nephrology. The patient was treated accordingly and the most recent sodium level is up to 129. No altered mentation at this point in time. The patient is calm and comfortable and communicating. No seizure activity. No focal neurological deficits. The patient has no signs of delirium tremens. She is tolerating diet. No nausea. No emesis. No abdominal pain. The liver function test was slightly elevated consistent with alcoholic liver disease. Her ammonia level was 58 at time of admission. Serum cortisol was 19. Urine drug screen was positive for marijuana and benzodiazepine. Rest of viral screen was negative. The patient's lactic acid level dropped from 4.1 down to 1.7. The white cell count is 5.7 with a hemoglobin 14.5 and a platelet count of 136. No reported aspiration. CTA of the chest that was done on 10/22/2023 showed no evidence of any pulm embolism. There was moderate emphysematous changes and some small patchy reticular nodular and linear densities in the lower lobes bilaterally suggestive of atelectasis. There was mild compression fracture of the T10/T11 spine Objective - Vital Signs Vital signs: Vital Signs Temp 97.8 F 10/23/23 07:51 Pulse 88 10/23/23 12:43 Resp 19 10/23/23 09:17 BP 113/78 10/23/23 07:51 Pulse Ox 98 10/23/23 07:51 FiO2 Intake & Output 10/22/23 10/23/23 10/23/23 18:59 06:59 18:59 Other: # Voids 1 3 - Exam No acute distress, alert. Room air oxygen for now HEENT examination is grossly unremarkable. Mucous membranes dry. Neck supple. Full range of motion. No adenopathy thyromegaly or neck vein distention. Cardiovascular examination reveals regular rhythm rate. S1-S2 normal. No S3 or S4. No discernible murmur noted. Lungs mostly clear breath sounds. Scattered rhonchi. No wheezes or crackles. Breath sounds equal. Abdomen soft without bowel sounds. No masses or tenderness. Extremities are intact. No cyanosis clubbing or edema. Skin is without rash or lesion. Neurologic examination is brief but nonfocal. - Labs CBC & Chem 7: 10/21/23 04:28 10/23/23 12:39 Labs: Abnormal Lab Results - Last 24 Hours (Table) 10/22/23 10/22/23 10/23/23 Range/Units 16:17 19:57 11:55 POC Glucose (mg/dL) 123 H 145 H 113 H (70-110) mg/dL Assessment and Plan Plan: Severe hyponatremia, likely with a component of beer potomania. Sodium level improved and the patient sodium level from today is 129. Yesterday sodium was at 131. No altered mentation. No focal neurological deficits. No encephalopathy. Questionable seizure, secondary to hyponatremia History of chronic alcohol and drug use/abuse COPD related to chronic tobacco smoking and the patient states that she quit smoking approximately 2 months ago Compression fracture of the T10 and T11 spine History of marijuana use. History of cocaine use. History of fibromyalgia. Plan: Monitor electrolytes No signs of any delirium tremens Smoking cessation counseling Will continue to follow.
[2023-10-23 17:15] LABS: Glucose,Whole Blood 147 mg/dL (70-110)
--- NOTE | 2023-10-23 18:41 | US ---
EXAMINATION TYPE: US kidneys/renal and bladder DATE OF EXAM: 10/23/2023 COMPARISON: US 11/28/2021 CLINICAL INDICATION: Female, 58 years old with history of back pain; Patient states flank pain EXAM MEASUREMENTS: Right Kidney: 10.2 x 5.3 x 4.4 cm Left Kidney: 9.3 x 4,8 x 4.0 cm Limited visibility due to overlying bowel gas Right Kidney: No hydronephrosis or masses seen as best visualized today Left Kidney: No hydronephrosis or masses seen as best visualized today Bladder: Not full, unable to visualize Bilateral Jets seen: Unable to visualize IMPRESSION: 1 Limited examination due to bowel gas. 2. No obvious acute renal ultrasound abnormality
--- NOTE | 2023-10-23 19:13 | P.PN ---
Subjective Progress Note Date: 10/23/23 This is a 58-year-old female with medical history significant for diabetes mellitus, migraines, fibromyalgia, anxiety/depression, daily alcohol use, patient is a every day smoker with history of polysubstance abuse with cocaine and marijuana. Patient was brought into the hospital by EMS with reported praveen rns of anxiety and shortness of breath. Patient in the ER on initial assessment was noted to have seizure-like activity was given 2 mg of IM Ativan. Patient is alert and oriented x 1 at this time and is significantly agitated and restless. She does endorse daily alcohol use states she drinks 2 beers per day. Due to the confusion unable to gather a detailed history from the patient. The rest of the medical history was taken from patients who states she battles with chronic pain and uses alcohol as a method of pain control. Has not been to see a physician in over 4 years. admits to patient drinking "4 tall boys" per day additionally will drink liquor as well. States she has quit smoking over 2 weeks ago due to shortness of breath and unable to take a deep breath. Denies any cough, fever or chills. States there have been no recent sick contacts. Brain CT shows no acute intracranial hemorrhage midline shift or mass effect. Chest xray shows no acute cardiopulmonary process. EKG shows sinus tachycardia and moderate ST depression. Rate of 109. She was severely hyponatremic on admission with a sodium level of 117, potassium of 3.2, chloride of 74, lactic acid of 4.1, magnesium level is 1.2, bilirubin is 1.4 AST ALT are elevated. Urinalysis showing large leukocyte esterase and many bacteria. Urine drug toxicology at this time is positive for benzodiazepines and marijuana. Viral panel is negative. Patient was started on 3% normal saline infusion and admitted to the intensive care unit with consults placed to nephrology and neurology services. 10/21/2023 Patient is evaluated in follow up in the ICU patient is more awake and alert. Sodium level up to 124 and has been taken off the 3% saline gtt. patient remains on oxygen via nasal cannula with 2 L. Received 1 mg of IV Ativan overnight and does not appear to be actively withdrawing at this time. No further reports of seizure-like activity. Nephrology following. Patient has been downgraded out of the ICU to the general medical floor. Patient is pending PT/OT evaluation. Wants to go home. States she stopped seeing medical doctors because she did not want surgery on her hip and did not want to be on pain medications for her chronic pain. States she drinks tequila daily and verbalizes an understanding of the need to cut back. 10/22/2023 Patient is evaluated today in follow up. She is alert x 3. Sodium level has improved currently 131. Potassium 3.2. 10/23/2023 Patient evaluated in follow up today on the medical floor. She is awake alert and oriented x 3. Worked with physical therapy and ok for discharge home. Had CT angiography done secondary to the elevated D-Dimer which reveals no pulmonary embolism there is atelectasis in the lung bases. Patient has significant flank pain and tenderness also reports burning with urination today. Discharge will be held because of this. Sodium 129 today. Sodium chloride tab added today for discharge by nephrology. Review of Systems Constitutional: Denied any fatigue denied any fever. Cardio vascular: denied any chest pain, palpitations Gastrointestinal: denied any nausea, vomiting, diarrhea Pulmonary: Denied any shortness of breath cough Neurologic denied any new focal deficits All inpatient medications were reviewed and appropriate changes in these medications as dictated in the interval history and assessment and plan. PHYSICAL EXAMINATION: GENERAL: The patient is alert and oriented x3, not in any acute distress. Well developed, well nourished. HEENT: Pupils are round and equally reacting to light. EOMI. No scleral icterus. No conjunctival pallor. Normocephalic, atraumatic. No pharyngeal erythema. No thyromegaly. CARDIOVASCULAR: S1 and S2 present. No murmurs, rubs, or gallops. PULMONARY: Chest is clear to auscultation, no wheezing or crackles. ABDOMEN: Soft, nontender, nondistended, normoactive bowel sounds. No palpable organomegaly. MUSCULOSKELETAL: No joint swelling or deformity. EXTREMITIES: No cyanosis, clubbing, or pedal edema. NEUROLOGICAL: Gross neurological examination did not reveal any focal deficits. SKIN: No rashes. Assessment and Plan Altered mental status secondary to acute metabolic encephalopathy due to the hyponatremia, patient now alert x 3. Rule out seizure-like activity seizure could be related to the low sodium level as well as alcohol withdrawal seizure neurology has been consulted for further evaluation. No further testing and no further reports of seizure like activity. Chronic alcoholism patient has been started on Ativan CIWA protocol and monitor for withdrawal symptoms patient is in seizure precautions. Does not appear to be actively withdrawing at this time. Hyponatremia like from poor oral intake exacerbated by alcohol use; component of beer potomania treated with 3% saline which has been discontinued at this time sodium improved up to 131 Hypokalemia and Hypomagnesemia supplemented and have normalized Diabetes mellitus type 2 diet controlled accuchecks ACHS and sliding scale ordered, check an A1C level Shortness of breath; elevated D-Dimer CTA reveals no evidence of pulmonary embolism Dysuria repeat urinalysis after discontinuation of indwelling damari catheter. Renal ultrasound done with no evidence of stones or obstructive uropathy/hydronephrosis History of fibromyalgia Degenerative disc disease and chronic back pain Subacute to chronic mild compression fracture deformaties of T10- T11 patient does report pain at this level has seen orthopedics and pain management in the past and does not want any surgical intervention. Anxiety/depression Chronic nicotine use quit 2 weeks ago Polysubstance abuse with history of cocaine and marijuana use Chronic avascular necrosis per the GI prophylaxis: pepcid DVT prophylaxis: heparin subcu Full Code Nephrology following the sodium level. Added sodium chloride on discharge. Renal ultrasound wnl. Add IV toradol and follow up on repeat urinalysis in the AM. Discharge in the next 24 hours. The impression and plan of care has been dictated by Geneva Samuels, Nurse Practitioner as directed. Dr. Lakesha MD I have performed a history and physical examination and medical decision making of this patient, discussed the same with the dictator, and agree with the dictators assessment and plan as written, documented as a scribe. Based on total visit time, I have performed more than 50% of this visit. Objective - Vital Signs Vital signs: Vital Signs Temp 98.3 F 10/23/23 13:51 Pulse 110 H 10/23/23 13:51 Resp 19 10/23/23 09:17 BP 101/65 10/23/23 13:51 Pulse Ox 98 10/23/23 07:51 FiO2 Intake & Output 10/23/23 10/23/23 10/24/23 06:59 18:59 06:59 Intake Total 712 Balance 712 Intake: Oral 712 Other: # Voids 3 1 - Labs CBC & Chem 7: 10/21/23 04:28 10/23/23 12:39 Labs: Abnormal Lab Results - Last 24 Hours (Table) 10/22/23 10/23/23 10/23/23 Range/Units 19:57 11:55 12:39 Sodium 129 L (137-145) mmol/L Carbon Dioxide 17 L (22-30) mmol/L Glucose 158 H (74-99) mg/dL POC Glucose (mg/dL) 145 H 113 H (70-110) mg/dL 10/23/23 Range/Units 17:14 Sodium (137-145) mmol/L Carbon Dioxide (22-30) mmol/L Glucose (74-99) mg/dL POC Glucose (mg/dL) 147 H (70-110) mg/dL Assessment and Plan Time with Patient: Less than 30
[2023-10-23 20:57] LABS: Glucose,Whole Blood 115 mg/dL (70-110)
[2023-10-23] MEDS: SODIUM CHLORIDE TAB 1 GM TAB PO SCH (21:26)
[2023-10-23] MEDS: KETOROLAC 15 MG/ML 1 ML VIAL IVP SCH (21:31)
[2023-10-24 03:05] LABS: Appearance,Urine Cloudy (Clear); Bacteria,Urine Many /hpf; Bilirubin,Urine Negative (Negative); Blood,Urine Negative (Negative); Color,Urine Colorless; Glucose,Urine (UA) Negative (Negative); Ketones,Urine Negative (Negative); Leukocyte Esterase,Urine Large (Negative); Mucus,Urine Rare /hpf; Nitrite,Urine Positive (Negative); PH, Urine 6.5 (5.0-8.0); Protein,Urine Negative (Negative); RBC,Urine 4 /hpf (0-5); Squamous Epithelial Cell,Urine 7 /hpf (0-4); Urobilinogen,Urine <2.0 mg/dL (<2.0); WBC,Urine 133 /hpf (0-5)
[2023-10-24 06:01] LABS: Glucose,Whole Blood 112 mg/dL (70-110)
[2023-10-24 09:07] LABS: Magnesium 1.8 mg/dL (1.5-2.4)
[2023-10-24 09:15] LABS: Blood Urea Nitrogen 9.9 mg/dL (9.0-27.0); Calcium 8.9 mg/dL (8.7-10.3); Carbon Dioxide 18.9 mmol/L (21.6-31.8); Chloride 102 mmol/L (96-109); Glucose 111 mg/dL (70-110); Potassium 4.2 mmol/L (3.5-5.5); Sodium 131 mmol/L (135-145)
[2023-10-24] MEDS: MAGNESIUM SULFATE-D5W PMX 1 GM in DEXTROSE/WATER 1 100ML.BAG IVPB ONE (11:50)
[2023-10-24 11:56] LABS: Glucose,Whole Blood 115 mg/dL (70-110)
--- NOTE | 2023-10-24 12:32 | P.PN ---
Subjective Patient is seen in follow-up for hyponatremia. Sodium level stable at 131. No vomiting or diarrhea. Has been eating. Vital signs are stable. General: No acute distress. HEENT: Head exam is unremarkable. LUNGS: No audible rhonchi or wheezes. HEART: Rate and Rhythm are regular. ABDOMEN: Nontender. EXTREMITITES: No edema. Objective - Vital Signs Vital signs: Vital Signs Temp 97.5 F L 10/24/23 07:23 Pulse 70 10/24/23 07:23 Resp 16 10/24/23 07:23 BP 107/68 10/24/23 07:23 Pulse Ox 96 10/24/23 07:23 FiO2 Intake & Output 10/23/23 10/24/23 10/24/23 18:59 06:59 18:59 Intake Total 712 Balance 712 Intake: Oral 712 Other: Voiding Method Toilet # Voids 1 3 - Labs CBC & Chem 7: 10/21/23 04:28 10/24/23 04:55 Labs: Abnormal Lab Results - Last 24 Hours (Table) 10/23/23 10/23/23 10/23/23 Range/Units 12:39 17:14 20:55 Sodium 129 L (137-145) mmol/L Carbon Dioxide 17 L (22-30) mmol/L Glucose 158 H (74-99) mg/dL POC Glucose (mg/dL) 147 H 115 H (70-110) mg/dL Urine Appearance (Clear) Urine Nitrite (Negative) Ur Leukocyte Esterase (Negative) Urine WBC (0-5) /hpf Ur Squamous Epith Cells (0-4) /hpf Urine Bacteria (None) /hpf Urine Mucus (None) /hpf 10/24/23 10/24/23 10/24/23 Range/Units 01:47 04:55 05:59 Sodium 131 L (137-145) mmol/L Carbon Dioxide 18.9 L (22-30) mmol/L Glucose 111 H (74-99) mg/dL POC Glucose (mg/dL) 112 H (70-110) mg/dL Urine Appearance Cloudy H (Clear) Urine Nitrite Positive H (Negative) Ur Leukocyte Esterase Large H (Negative) Urine WBC 133 H (0-5) /hpf Ur Squamous Epith Cells 7 H (0-4) /hpf Urine Bacteria Many H (None) /hpf Urine Mucus Rare H (None) /hpf 10/24/23 Range/Units 11:54 Sodium (137-145) mmol/L Carbon Dioxide (22-30) mmol/L Glucose (74-99) mg/dL POC Glucose (mg/dL) 115 H (70-110) mg/dL Urine Appearance (Clear) Urine Nitrite (Negative) Ur Leukocyte Esterase (Negative) Urine WBC (0-5) /hpf Ur Squamous Epith Cells (0-4) /hpf Urine Bacteria (None) /hpf Urine Mucus (None) /hpf Assessment and Plan Plan: Assessment: 1. Hyponatremia, hypovolemic with component of poor solute intake and alcohol abuse. Sodium level 131. Urine sodium 83 and urine osmolality 285. Cortisol level 19.5. TSH normal. 2. Hypokalemia from poor intake. Replaced. Improved. 3. Hypomagnesemia from poor intake and alcohol abuse. Replaced. Better. 4. Metabolic acidosis from ketoacidosis. Plan: Maintain 1500 cc fluid restriction. Encouraged oral intake. Maintain sodium chloride tab once daily. Add oral bicarb. Advised patient to maintain fluid restriction of less than 50 ounces per day and to increase protein intake upon discharge. Repeat BMP and magnesium level 2 to 3 days postdischarge. Follow-up outpatient in 1 week.
[2023-10-24] MEDS: SODIUM BICARBONATE TAB 650 MG TAB PO SCH (12:43)
--- NOTE | 2023-10-24 13:03 | P.PN ---
Subjective Progress Note Date: 10/24/23 I am seeing the patient for the first time during this admission. Please refer to Dr. Aguilar's notes for further details. It seems that the patient has metabolic encephalopathy and her mentation has improved according to the who is at bedside as well as the nurse. She has new onset seizure likely provoked due to hyponatremia and the alcohol use. It seems that she has acute UTI. Objective - Vital Signs Vital signs: Vital Signs Temp 97.5 F L 10/24/23 07:23 Pulse 70 10/24/23 07:23 Resp 16 10/24/23 07:23 BP 107/68 10/24/23 07:23 Pulse Ox 96 10/24/23 07:23 FiO2 Intake & Output 10/23/23 10/24/23 10/24/23 18:59 06:59 18:59 Intake Total 712 Balance 712 Intake: Oral 712 Other: Voiding Method Toilet # Voids 1 3 - Exam General:Sitting up in bed and is in mild pain (lower back). Neuro: The patient is awake alert oriented to self place and time. Is following simple commands. No aphasia neglect. Visual dominguez are full to confrontation. Extraocular movements intact no nystagmus. No facial weakness. No dysarthria. Motor is left in all extremities above gravity but in the lowers is somewhat limited because of her pain. - Labs CBC & Chem 7: 10/21/23 04:28 10/24/23 04:55 Labs: Abnormal Lab Results - Last 24 Hours (Table) 10/23/23 10/23/23 10/23/23 Range/Units 12:39 17:14 20:55 Sodium 129 L (137-145) mmol/L Carbon Dioxide 17 L (22-30) mmol/L Glucose 158 H (74-99) mg/dL POC Glucose (mg/dL) 147 H 115 H (70-110) mg/dL Urine Appearance (Clear) Urine Nitrite (Negative) Ur Leukocyte Esterase (Negative) Urine WBC (0-5) /hpf Ur Squamous Epith Cells (0-4) /hpf Urine Bacteria (None) /hpf Urine Mucus (None) /hpf 10/24/23 10/24/23 10/24/23 Range/Units 01:47 04:55 05:59 Sodium 131 L (137-145) mmol/L Carbon Dioxide 18.9 L (22-30) mmol/L Glucose 111 H (74-99) mg/dL POC Glucose (mg/dL) 112 H (70-110) mg/dL Urine Appearance Cloudy H (Clear) Urine Nitrite Positive H (Negative) Ur Leukocyte Esterase Large H (Negative) Urine WBC 133 H (0-5) /hpf Ur Squamous Epith Cells 7 H (0-4) /hpf Urine Bacteria Many H (None) /hpf Urine Mucus Rare H (None) /hpf 10/24/23 Range/Units 11:54 Sodium (137-145) mmol/L Carbon Dioxide (22-30) mmol/L Glucose (74-99) mg/dL POC Glucose (mg/dL) 115 H (70-110) mg/dL Urine Appearance (Clear) Urine Nitrite (Negative) Ur Leukocyte Esterase (Negative) Urine WBC (0-5) /hpf Ur Squamous Epith Cells (0-4) /hpf Urine Bacteria (None) /hpf Urine Mucus (None) /hpf Assessment and Plan Assessment: * Altered mental status, due to metabolic encephalopathy. Reasons multifactorial as mentioned below---mentation improved * New onset seizure, likely provoked due to reasons mentioned below. * Acute UTI * Hyponatremia with sodium 107, now improved 125. * Possible hepatic encephalopathy with elevated ammonia 58 * Elevated lactate 4.1 * Abnormal liver functions * Hypokalemia, resolved, potassium 3.5 * Chronic lower back pain patient had MRI in 2017 which showed enlargement of the left L3 and L4 nerve roots suggesting of lumbar radiculopathy. It seems that the patient has compression fraction and declines any intervention * Alcoholism * Marijuana use * Fibromyalgia Plan: * Her mentation has improved. * Patient has acute hyponatremia. Nephrology on board. Sodium has improved now 131. * Seizure was likely provoked due to severe metabolic derangement. No indication for EEG. No evidence of status. Patient's mental status is much improving. * [facility] protocol. * Continue thiamine, folic acid, multivitamins. * Other medical management as per IM and other specialties on board. * Recommend abstinence from alcoholism and polysubstance. * Per nurse patient has a history of compression fracture and she declines of any intervention of her back. I recommend EMG with nerve conduction study as an outpatient follow-up with orthopedic as an outpatient. * Defer the rest of the medical management to primary and other specialist The plan is discussed with patient, her who is at bedside and her nurse. There is no further neurological work-up. Will sign off. Please reconsult if needed. Time with Patient: Less than 30
[2023-10-24 15:24] VITALS: BP 104/66; PULSE 75; RESP 17; TEMP 97.9
--- NOTE | 2023-10-24 22:51 | P.PN ---
Subjective Progress Note Date: 10/24/23 On 10/23/2023, seen the patient for a follow-up. The patient is a 58-year-old female patient was seen in the hospital for complications related to excessive alcohol drinking associated form of beer. The patient presented because of mental status change along with nausea and vomiting and questionable seizure activity. The patient sodium level was quite low at the time of admission and it was as low as 107. The patient was seen by nephrology. The patient was treated accordingly and the most recent sodium level is up to 129. No altered mentation at this point in time. The patient is calm and comfortable and communicating. No seizure activity. No focal neurological deficits. The patient has no signs of delirium tremens. She is tolerating diet. No nausea. No emesis. No abdominal pain. The liver function test was slightly elevated consistent with alcoholic liver disease. Her ammonia level was 58 at time of admission. Serum cortisol was 19. Urine drug screen was positive for marijuana and benzodiazepine. Rest of viral screen was negative. The patient's lactic acid level dropped from 4.1 down to 1.7. The white cell count is 5.7 with a hemoglobin 14.5 and a platelet count of 136. No reported aspiration. CTA of the chest that was done on 10/22/2023 showed no evidence of any pulm embolism. There was moderate emphysematous changes and some small patchy reticular nodular and linear densities in the lower lobes bilaterally suggestive of atelectasis. There was mild compression fracture of the T10/T11 spine On today's evaluation of 10/24/2023, the patient is being seen for a follow-up with no new complaints of the patient sodium level today is at 131. Serum bicarb is 18 with a BUN of 9 and a creatinine of 0.6. Awake and alert and communicating. No signs of respiratory distress. No cough or sputum production the patient is currently on room air oxygen with a pulse ox of 98%. The patient is to be discharged home today. No nausea. No emesis. Tolerating the diet. Clinically and hemodynamically stable at this point in time. Objective - Vital Signs Vital signs: Vital Signs Temp 97.5 F L 10/24/23 07:23 Pulse 70 10/24/23 07:23 Resp 16 10/24/23 07:23 BP 107/68 10/24/23 07:23 Pulse Ox 96 10/24/23 07:23 FiO2 Intake & Output 10/23/23 10/24/23 10/24/23 18:59 06:59 18:59 Intake Total 712 Balance 712 Intake: Oral 712 Other: Voiding Method Toilet # Voids 1 3 - Exam No acute distress, alert. Room air oxygen for now HEENT examination is grossly unremarkable. Mucous membranes dry. Neck supple. Full range of motion. No adenopathy thyromegaly or neck vein distention. Cardiovascular examination reveals regular rhythm rate. S1-S2 normal. No S3 or S4. No discernible murmur noted. Lungs mostly clear breath sounds. Scattered rhonchi. No wheezes or crackles. Breath sounds equal. Abdomen soft without bowel sounds. No masses or tenderness. Extremities are intact. No cyanosis clubbing or edema. Skin is without rash or lesion. Neurologic examination is brief but nonfocal. - Labs CBC & Chem 7: 10/21/23 04:28 10/24/23 04:55 Labs: Abnormal Lab Results - Last 24 Hours (Table) 10/23/23 10/23/23 10/23/23 Range/Units 11:55 12:39 17:14 Sodium 129 L (137-145) mmol/L Carbon Dioxide 17 L (22-30) mmol/L Glucose 158 H (74-99) mg/dL POC Glucose (mg/dL) 113 H 147 H (70-110) mg/dL Urine Appearance (Clear) Urine Nitrite (Negative) Ur Leukocyte Esterase (Negative) Urine WBC (0-5) /hpf Ur Squamous Epith Cells (0-4) /hpf Urine Bacteria (None) /hpf Urine Mucus (None) /hpf 10/23/23 10/24/23 10/24/23 Range/Units 20:55 01:47 04:55 Sodium 131 L (137-145) mmol/L Carbon Dioxide 18.9 L (22-30) mmol/L Glucose 111 H (74-99) mg/dL POC Glucose (mg/dL) 115 H (70-110) mg/dL Urine Appearance Cloudy H (Clear) Urine Nitrite Positive H (Negative) Ur Leukocyte Esterase Large H (Negative) Urine WBC 133 H (0-5) /hpf Ur Squamous Epith Cells 7 H (0-4) /hpf Urine Bacteria Many H (None) /hpf Urine Mucus Rare H (None) /hpf 10/24/23 Range/Units 05:59 Sodium (137-145) mmol/L Carbon Dioxide (22-30) mmol/L Glucose (74-99) mg/dL POC Glucose (mg/dL) 112 H (70-110) mg/dL Urine Appearance (Clear) Urine Nitrite (Negative) Ur Leukocyte Esterase (Negative) Urine WBC (0-5) /hpf Ur Squamous Epith Cells (0-4) /hpf Urine Bacteria (None) /hpf Urine Mucus (None) /hpf Assessment and Plan Plan: Severe hyponatremia, likely with a component of beer potomania. Sodium level has normalized and the patient is currently on salt tablets. v Questionable seizure, secondary to hyponatremia, currently inactive and stable History of chronic alcohol and drug use/abuse COPD related to chronic tobacco smoking and the patient states that she quit smoking approximately 2 months ago Compression fracture of the T10 and T11 spine History of marijuana use. History of cocaine use. History of fibromyalgia. Plan: Electrolytes are improved especially the sodium level and the patient is neurologically stable and the patient is being considered for discharge No signs of any delirium tremens Smoking cessation counseling Alcohol cessation counseling Clear for discharge from the pulmonary standpoint
== END 2023-10-24 15:21 | disposition home or self-care (01) | DRG 426 ==
LOC: EC 19:59 → 2SICU 10-20 00:35 → 4SSUR 10-21 16:03
PROVIDERS: ADMIT Hospitalist; ATTEND Hospitalist
DX: E87.1 Hypo-osmolality and hyponatremia (principal); F10.239 Alcohol dependence with withdrawal, unspecified; F17.200 Nicotine dependence, unspecified, uncomplicated; F32.A Depression, unspecified; F41.9 Anxiety disorder, unspecified; E87.8 Other disorders of electrolyte and fluid balance, not elsewhere classified; G89.29 Other chronic pain; G93.41 Metabolic encephalopathy; E87.6 Hypokalemia; K70.9 Alcoholic liver disease, unspecified; R00.0 Tachycardia, unspecified; M48.54XA Collapsed vertebra, not elsewhere classified, thoracic region, initial encounter for fracture; M79.7 Fibromyalgia; N39.0 Urinary tract infection, site not specified; E83.42 Hypomagnesemia; F14.10 Cocaine abuse, uncomplicated; E86.1 Hypovolemia; G43.909 Migraine, unspecified, not intractable, without status migrainosus; F12.10 Cannabis abuse, uncomplicated; M87.9 Osteonecrosis, unspecified; Z71.41 Alcohol abuse counseling and surveillance of alcoholic; Z71.6 Tobacco abuse counseling; Z79.899 Other long term (current) drug therapy
CPT/HCPCS: 36415; 51702; 70450; 71045; 71275; 76770; 80048; 80053; 80306; 80320; 81001; 82140; 82533; 82570; 82977; 83036; 83605; 83735; 83930; 83935; 84132; 84295; 84300; 84443; 84484; 85025; 85379; 85610; 85730; 87636; 94640; 96360; 96361; 96372; 99291

== ENCOUNTER 2023-11-17 10:05 | Inpatient (IN) | payer OTHER ==
--- NOTE | 2023-11-17 10:14 | ED ---
Nausea/Vomiting/Diarrhea HPI - General Chief complaint: Nausea/Vomiting/Diarrhea Stated complaint: Nausea Time Seen by Provider: 11/17/23 10:14 Source: patient, RN notes reviewed Mode of arrival: ambulatory Limitations: no limitations - History of Present Illness Initial comments: This is a 66-year-old female who presents to the emergency department for nausea and vomiting. Reports problems with ongoing nausea and vomiting for the last year and states that her PCP advised she come to the emergency department for IV fluids. Reports generalized abdominal discomfort. Additionally, patient reports going through alcohol withdrawals. States that she typically drinks 2-3 tall boys every night, but has not had any in a couple of days. MD complaint: nausea, vomiting - Related Data Home Medications Medication Instructions Recorded Confirmed Ondansetron Odt [Zofran ODT] 4 mg PO Q12H PRN 10/20/23 11/17/23 Pantoprazole [Protonix] 40 mg PO DAILY 11/17/23 11/17/23 Previous Rx's Medication Instructions Recorded Albuterol Inhaler [Ventolin Hfa 1 puff INHALATION QID PRN #8 gm 10/23/23 Inhaler] Famotidine [Pepcid] 20 mg PO DAILY #30 tab 10/23/23 Folic Acid 1 mg PO DAILY #30 tab 10/23/23 Thiamine [Vitamin B-1] 100 mg PO DAILY #30 tab 10/23/23 Naproxen [Naprosyn] 250 mg PO BID PRN 10 Days #20 tab 10/24/23 Sodium Chloride Tab 1 gm PO DAILY #30 tablet 10/24/23 Allergies Allergy/AdvReac Type Severity Reaction Status Date / Time No Known Allergies Allergy Verified 11/17/23 13:08 Review of Systems ROS Statement: Those systems with pertinent positive or pertinent negative responses have been documented in the HPI. ROS Other: All systems not noted in ROS Statement are negative. Past Medical History Past Medical History: Diabetes Mellitus Additional Past Medical History / Comment(s): back pain, migraines, fibromyalgianh, history of seizures when withdrawling from "tramadol" or another medicaiton "years ago" per 10/19/23 History of Any Multi-Drug Resistant Organisms: None Reported Past Surgical History: Orthopedic Surgery Smoking Status: Current every day smoker General Exam Limitations: no limitations General appearance: alert, in distress Head exam: Present: atraumatic, normocephalic, normal inspection Respiratory exam: Present: normal lung sounds bilaterally. Absent: respiratory distress, wheezes, rales, rhonchi, stridor Cardiovascular Exam: Present: normal rhythm, tachycardia GI/Abdominal exam: Present: soft, normal bowel sounds. Absent: distended, tenderness, guarding, rebound, rigid Neurological exam: Present: alert, oriented X3, CN II-XII intact Psychiatric exam: Present: normal affect, normal mood Skin exam: Present: warm, dry, intact, normal color. Absent: rash Course Vital Signs 11/17/23 11/17/23 11/17/23 10:31 10:42 12:53 Temperature 99.6 F Pulse Rate 125 H 120 H 120 H Respiratory 24 20 24 Rate Blood Pressure 159/78 140/80 146/78 O2 Sat by Pulse 95 98 90 L Oximetry Medical Decision Making - Medical Decision Making This is a 58 year old female who presents to the emergency department for nausea and alcohol withdrawals. Was pt. sent in by a medical professional or institution? @ -Yes, her PCP Did you speak to anyone other than the patient for history? @ -No Did you review nursing and triage notes? @ -Yes, and I agree, it is accurate with regards to the patient's symptoms. Were old charts reviewed? @ -No Differential Diagnosis? @ -Differential Nausea and Vomiting: Gastroenteritis, cholecystitis, appendicitis, pancreatitis, migraine, benign positional vertigo, food borne illness, pyelonephritis, irritable bowel syndrome, influenza, Covid, GERD, incarcerated hernia, intestinal obstruction, this is not meant to be an all-inclusive list. EKG interpreted by me (3pts min.)? @ -EKG interpreted by me demonstrating the following: Sinus tachycardia. Ventricular rate 123 bpm, HI interval 119 ms, QRS duration 82 ms, QTc 399 ms. X-rays interpreted by me (1pt min.)? @ -Chest x-ray obtained, my interpretation identifies no localized consolidations or infiltrates. CT interpreted by me (1pt min.)? @ -Not obtained U/S interpreted by me (1pt. min.)? @ -Not obtained What testing was considered but not performed? (CT, X-rays, U/S, labs)? Why? @ -None What meds were considered but not given? Why? @ -None Did you discuss the management of the patient with other professionals? @ -Yes, Dr. Lyman, who accepts the patient for admission. Did you reconcile home meds? @ -Yes Was smoking cessation discussed for >3mins.? @ -No Was critical care preformed (if so, how long)? @ -No Were there social determinants of health that impacted care today? How? (Homelessness, low income, unemployed, alcoholism, drug addiction, transportation, low edu. Level, literacy, decrease access to med. care, usp, rehab)? @ -No Was there de-escalation of care discussed even if they declined? (Discuss DNR or withdrawal of care, Hospice)? @ -No What co-morbidities impacted this encounter? (DM, HTN, Smoking, COPD, CAD, Cancer, CVA, Hep., AIDS, mental health diagnosis, sleep apnea, morbid obesity)? @ -None Was patient admitted / discharged? @ -Admitted. On arrival the patient was exhibiting clear signs of alcohol withdrawals and had persistent nausea and vomiting. Initial CIWA was 19. Lab work demonstrates mild leukopenia. Lactic acid elevated at 5.6. Urinalysis negative for signs of infection. Urine drug screen positive for marijuana and benzodiazepines. Benzodiazepines were administered here. Alcohol level 56. She was given a total of 2 L bolus of IV fluids. Banana bag was administered as well and patient was started on the CIWA protocol. Patient admitted to medicine for alcohol withdrawals and intractable nausea and vomiting. Undiagnosed new problem with uncertain prognosis? @ -None Drug Therapy requiring intensive monitoring for toxicity (Heparin, Nitro, Insulin, Cardizem)? @ -None Were any procedures done? @ -None Diagnosis/symptom? @ -Alcohol withdrawals, intractable nausea and vomiting Acute, or Chronic, or Acute on Chronic? @ -Acute Uncomplicated (without systemic symptoms) or Complicated (systemic symptoms)? @ -Complicated Side effects of treatment? @ -None Exacerbation, Progression, or Severe Exacerbation] @ -Not applicable Poses a threat to life or bodily function? @ -Yes This case was discussed in detail with the attending ED physician, Dr. Chairez. Presentation, findings, and treatment plan discussed in detail as well. - Lab Data Result diagrams: 11/17/23 11:11 11/17/23 11:11 Lab Results 11/17/23 11/17/23 11/17/23 Range/Units 11:11 11:11 11:11 WBC 3.7 L (3.8-10.6) k/uL RBC 4.70 (3.80-5.40) m/uL Hgb 14.8 (11.4-16.0) gm/dL Hct 49.8 H (34.0-46.0) % MCV 106.1 H D (80.0-100.0) fL MCH 31.4 (25.0-35.0) pg MCHC 29.6 L (31.0-37.0) g/dL RDW 14.0 (11.5-15.5) % Plt Count 222 (150-450) k/uL MPV 8.8 Neutrophils % 55 % Lymphocytes % 23 % Monocytes % 8 % Eosinophils % 10 % Basophils % 1 % Neutrophils # 2.0 (1.3-7.7) k/uL Lymphocytes # 0.8 L (1.0-4.8) k/uL Monocytes # 0.3 (0-1.0) k/uL Eosinophils # 0.4 (0-0.7) k/uL Basophils # 0.0 (0-0.2) k/uL Hypochromasia Slight Macrocytosis Moderate Sodium 141 (137-145) mmol/L Potassium 4.5 (3.5-5.1) mmol/L Chloride 107 (98-107) mmol/L Carbon Dioxide 20 L (22-30) mmol/L Anion Gap 14 mmol/L BUN <2 L (7-17) mg/dL Creatinine 0.69 (0.52-1.04) mg/dL Est GFR (CKD-EPI)AfAm >90 (>60 ml/min/1.73 sqM) Est GFR (CKD-EPI)NonAf >90 (>60 ml/min/1.73 sqM) Glucose 98 (74-99) mg/dL Lactic Ac Sepsis Rflx Plasma Lactic Acid Nic 5.6 H* (0.7-2.0) mmol/L Calcium 9.7 (8.4-10.2) mg/dL Phosphorus 5.1 H (2.5-4.5) mg/dL Magnesium 1.7 (1.6-2.3) mg/dL Total Bilirubin 0.4 (0.2-1.3) mg/dL AST 49 H (14-36) U/L ALT 26 (4-34) U/L Alkaline Phosphatase 170 H (38-126) U/L Total Protein 7.9 (6.3-8.2) g/dL Albumin 5.1 H (3.5-5.0) g/dL Amylase 49 (30-110) U/L Lipase 58 (23-300) U/L Urine Color Urine Appearance (Clear) Urine pH (5.0-8.0) Ur Specific [place] (1.001-1.035) Urine Protein (Negative) Urine Glucose (UA) (Negative) Urine Ketones (Negative) Urine Blood (Negative) Urine Nitrite (Negative) Urine Bilirubin (Negative) Urine Urobilinogen (<2.0) mg/dL Ur Leukocyte Esterase (Negative) Urine Opiates Screen (NotDetected) Ur Oxycodone Screen (NotDetected) Urine Methadone Screen (NotDetected) Ur Barbiturates Screen (NotDetected) U Tricyclic Antidepress (NotDetected) Ur Phencyclidine Scrn (NotDetected) Ur Amphetamines Screen (NotDetected) U Methamphetamines Scrn (NotDetected) U Benzodiazepines Scrn (NotDetected) Urine Cocaine Screen (NotDetected) U Marijuana (THC) Screen (NotDetected) Serum Alcohol 56 mg/dL 11/17/23 11/17/23 11/17/23 Range/Units 11:47 13:00 13:00 WBC (3.8-10.6) k/uL RBC (3.80-5.40) m/uL Hgb (11.4-16.0) gm/dL Hct (34.0-46.0) % MCV (80.0-100.0) fL MCH (25.0-35.0) pg MCHC (31.0-37.0) g/dL RDW (11.5-15.5) % Plt Count (150-450) k/uL MPV Neutrophils % % Lymphocytes % % Monocytes % % Eosinophils % % Basophils % % Neutrophils # (1.3-7.7) k/uL Lymphocytes # (1.0-4.8) k/uL Monocytes # (0-1.0) k/uL Eosinophils # (0-0.7) k/uL Basophils # (0-0.2) k/uL Hypochromasia Macrocytosis Sodium (137-145) mmol/L Potassium (3.5-5.1) mmol/L Chloride (98-107) mmol/L Carbon Dioxide (22-30) mmol/L Anion Gap mmol/L BUN (7-17) mg/dL Creatinine (0.52-1.04) mg/dL Est GFR (CKD-EPI)AfAm (>60 ml/min/1.73 sqM) Est GFR (CKD-EPI)NonAf (>60 ml/min/1.73 sqM) Glucose (74-99) mg/dL Lactic Ac Sepsis Rflx Y Plasma Lactic Acid Nic (0.7-2.0) mmol/L Calcium (8.4-10.2) mg/dL Phosphorus (2.5-4.5) mg/dL Magnesium (1.6-2.3) mg/dL Total Bilirubin (0.2-1.3) mg/dL AST (14-36) U/L ALT (4-34) U/L Alkaline Phosphatase (38-126) U/L Total Protein (6.3-8.2) g/dL Albumin (3.5-5.0) g/dL Amylase (30-110) U/L Lipase (23-300) U/L Urine Color Colorless Urine Appearance Clear (Clear) Urine pH 5.5 (5.0-8.0) Ur Specific [place] 1.013 (1.001-1.035) Urine Protein Negative (Negative) Urine Glucose (UA) Negative (Negative) Urine Ketones Trace H (Negative) Urine Blood Negative (Negative) Urine Nitrite Negative (Negative) Urine Bilirubin Negative (Negative) Urine Urobilinogen <2.0 (<2.0) mg/dL Ur Leukocyte Esterase Negative (Negative) Urine Opiates Screen Not Detected (NotDetected) Ur Oxycodone Screen Not Detected (NotDetected) Urine Methadone Screen Not Detected (NotDetected) Ur Barbiturates Screen Not Detected (NotDetected) U Tricyclic Antidepress Not Detected (NotDetected) Ur Phencyclidine Scrn Not Detected (NotDetected) Ur Amphetamines Screen Not Detected (NotDetected) U Methamphetamines Scrn Not Detected (NotDetected) U Benzodiazepines Scrn Detected H (NotDetected) Urine Cocaine Screen Not Detected (NotDetected) U Marijuana (THC) Screen Detected H (NotDetected) Serum Alcohol mg/dL 11/17/23 Range/Units 14:13 WBC (3.8-10.6) k/uL RBC (3.80-5.40) m/uL Hgb (11.4-16.0) gm/dL Hct (34.0-46.0) % MCV (80.0-100.0) fL MCH (25.0-35.0) pg MCHC (31.0-37.0) g/dL RDW (11.5-15.5) % Plt Count (150-450) k/uL MPV Neutrophils % % Lymphocytes % % Monocytes % % Eosinophils % % Basophils % % Neutrophils # (1.3-7.7) k/uL Lymphocytes # (1.0-4.8) k/uL Monocytes # (0-1.0) k/uL Eosinophils # (0-0.7) k/uL Basophils # (0-0.2) k/uL Hypochromasia Macrocytosis Sodium (137-145) mmol/L Potassium (3.5-5.1) mmol/L Chloride (98-107) mmol/L Carbon Dioxide (22-30) mmol/L Anion Gap mmol/L BUN (7-17) mg/dL Creatinine (0.52-1.04) mg/dL Est GFR (CKD-EPI)AfAm (>60 ml/min/1.73 sqM) Est GFR (CKD-EPI)NonAf (>60 ml/min/1.73 sqM) Glucose (74-99) mg/dL Lactic Ac Sepsis Rflx Plasma Lactic Acid Nic 1.8 (0.7-2.0) mmol/L Calcium (8.4-10.2) mg/dL Phosphorus (2.5-4.5) mg/dL Magnesium (1.6-2.3) mg/dL Total Bilirubin (0.2-1.3) mg/dL AST (14-36) U/L ALT (4-34) U/L Alkaline Phosphatase (38-126) U/L Total Protein (6.3-8.2) g/dL Albumin (3.5-5.0) g/dL Amylase (30-110) U/L Lipase (23-300) U/L Urine Color Urine Appearance (Clear) Urine pH (5.0-8.0) Ur Specific [place] (1.001-1.035) Urine Protein (Negative) Urine Glucose (UA) (Negative) Urine Ketones (Negative) Urine Blood (Negative) Urine Nitrite (Negative) Urine Bilirubin (Negative) Urine Urobilinogen (<2.0) mg/dL Ur Leukocyte Esterase (Negative) Urine Opiates Screen (NotDetected) Ur Oxycodone Screen (NotDetected) Urine Methadone Screen (NotDetected) Ur Barbiturates Screen (NotDetected) U Tricyclic Antidepress (NotDetected) Ur Phencyclidine Scrn (NotDetected) Ur Amphetamines Screen (NotDetected) U Methamphetamines Scrn (NotDetected) U Benzodiazepines Scrn (NotDetected) Urine Cocaine Screen (NotDetected) U Marijuana (THC) Screen (NotDetected) Serum Alcohol mg/dL - Radiology Data Radiology results: report reviewed, image reviewed Disposition Clinical Impression: Alcohol withdrawal, Intractable nausea and vomiting Disposition: ADMITTED IP TO THIS HOSP
[2023-11-17] MEDS ORDERED: LORazepam 2 MG/ML INJ IV PRN (10:44)
[2023-11-17] MEDS: ONDANSETRON 4 MG/2 ML VIAL IVP STA (11:23)
[2023-11-17] MEDS: THIAMINE 100 MG/ML 2 ML VIAL IM STA (11:24)
[2023-11-17] MEDS: LORazepam 2 MG/ML INJ IV PRN ×2 (11:24→14:03)
[2023-11-17] MEDS: SODIUM CHLORIDE 0.9% 1,000 ML IV STA ×3 (11:26→13:11)
[2023-11-17 11:47] LABS: Basophils % (A) 1 %; Eosinophils # (A) 0.4 k/uL (0-0.7); Eosinophils % (A) 10 %; HCT 49.8 % (34.0-46.0); HGB 14.8 gm/dL (11.4-16.0); Hypochromasia Slight; Lymphocytes # (A) 0.8 k/uL (1.0-4.8); Lymphocytes % (A) 23 %; MCH 31.4 pg (25.0-35.0); MCHC 29.6 g/dL (31.0-37.0); Macrocytosis Moderate; Mean Platelet Volume 8.8; Monocytes # (A) 0.3 k/uL (0-1.0); Monocytes % (A) 8 %; Neutrophils % (A) 55 %; Platelet Count 222 k/uL (150-450); WBC 3.7 k/uL (3.8-10.6)
[2023-11-17 11:49] LABS: MCV 106.1 fL (80.0-100.0)
[2023-11-17 11:50] LABS: ALT 26 U/L (4-34); AST 49 U/L (14-36); African American GFR (CKD) >90 (>60 ml/min/1.73 sqM); Albumin 5.1 g/dL (3.5-5.0); Alcohol 56 mg/dL; Alkaline Phosphatase 170 U/L (38-126); Amylase 49 U/L (30-110); Anion Gap 14 mmol/L; Blood Urea Nitrogen <2 mg/dL (7-17); Calcium 9.7 mg/dL (8.4-10.2); Carbon Dioxide 20 mmol/L (22-30); Chloride 107 mmol/L (98-107); Glucose 98 mg/dL (74-99); Lipase 58 U/L (23-300); Magnesium 1.7 mg/dL (1.6-2.3); Non-African American GFR(CKD) >90 (>60 ml/min/1.73 sqM); Phosphorus 5.1 mg/dL (2.5-4.5); Potassium 4.5 mmol/L (3.5-5.1); Sodium 141 mmol/L (137-145); Total Bilirubin 0.4 mg/dL (0.2-1.3); Total Protein 7.9 g/dL (6.3-8.2)
[2023-11-17 13:27] LABS: Appearance,Urine Clear (Clear); Bilirubin,Urine Negative (Negative); Blood,Urine Negative (Negative); Color,Urine Colorless; Glucose,Urine (UA) Negative (Negative); Ketones,Urine Trace (Negative); Leukocyte Esterase,Urine Negative (Negative); Nitrite,Urine Negative (Negative); PH, Urine 5.5 (5.0-8.0); Protein,Urine Negative (Negative); Specific Gravity,Urine 1.013 (1.001-1.035); Urobilinogen,Urine <2.0 mg/dL (<2.0)
[2023-11-17 13:37] LABS: Amphetamine Screen,Urine Not Detected (NotDetected); Barbiturate Screen,Urine Not Detected (NotDetected); Benzodiazepines Screen,Urine Detected (NotDetected); Cocaine Screen,Urine Not Detected (NotDetected); Methadone Screen, Urine Not Detected (NotDetected); Opiate Screen,Urine Not Detected (NotDetected); Oxycodone Screen, Urine Not Detected (NotDetected); Phencyclidine Screen,Urine Not Detected (NotDetected); Tricyclic Antidepressant,Urine Not Detected (NotDetected); Urn Cannabinoid Scrn Detected (NotDetected)
[2023-11-17] MEDS ORDERED: NAPROXEN 250 MG TAB PO PRN (13:56)
[2023-11-17] MEDS ORDERED: ALBUTEROL NEBULIZED 2.5 MG/3 ML INHALATION PRN (13:56)
[2023-11-17] MEDS ORDERED: ONDANSETRON ODT 4 MG TAB PO PRN (13:56)
[2023-11-17] MEDS ORDERED: NALOXONE 0.4 MG/ML 1 ML VIAL IV PRN (14:12)
[2023-11-17] MEDS ORDERED: ONDANSETRON 4 MG/2 ML VIAL IVP PRN (14:12)
[2023-11-17] MEDS ORDERED: IBUPROFEN 400 MG TAB PO PRN (14:12)
--- NOTE | 2023-11-17 14:31 | XR ---
EXAMINATION TYPE: XR chest 2V DATE OF EXAM: 11/17/2023 COMPARISON: 10/19/2023 TECHNIQUE: PA and lateral views submitted. HISTORY: Altered mental status FINDINGS: The lungs are clear and there is no pneumothorax, pleural effusion, or focal pneumonia. Heart size normal and no overt failure. Osseous structures demonstrate hypertrophic and degenerative changes of the spine. Emphysematous changes. IMPRESSION: 1. No acute process.
[2023-11-17] MEDS: SODIUM CHLORIDE 0.9% 1,000 ML with MVI, ADULT NO.4 WITH VIT K 10 ML, THIAMINE 100 MG, F... IV ONE (16:03)
[2023-11-17] MEDS: METOPROLOL SUCCINATE (ER) 25 MG TAB.ER.24H PO SCH (19:15)
[2023-11-17] MEDS: methylPREDNISolone SOD SUCCI 125 MG/2 ML VIAL IV SCH (19:15)
[2023-11-17] MEDS: ACETAMINOPHEN TAB 325 MG TAB PO PRN (19:15)
[2023-11-17] MEDS: IPRATROPIUM-ALBUTEROL 3 ML NEB INHALATION SCH (20:04)
[2023-11-17] MEDS: BUDESONIDE 1 MG/2 ML NEBU INHALATION SCH (20:04)
[2023-11-17] MEDS: cloNIDine HCL 0.1 MG TAB PO SCH (21:26)
[2023-11-18] MEDS: LORazepam 2 MG/ML INJ IV PRN (01:29)
[2023-11-18] MEDS ORDERED: THIAMINE 100 MG TAB PO SCH (09:00)
[2023-11-18] MEDS ORDERED: SODIUM CHLORIDE TAB 1 GM TAB PO SCH (09:00)
[2023-11-18] MEDS: ENOXAPARIN 40 MG/0.4 ML SYRINGE SQ SCH (09:01)
[2023-11-18] MEDS: PANTOPRAZOLE 40 MG TABLET PO SCH (09:02)
[2023-11-18] MEDS: FAMOTIDINE 20 MG TAB PO SCH (09:02)
[2023-11-18] MEDS: THIAMINE 100 MG TAB PO SCH (09:02)
[2023-11-18] MEDS: FOLIC ACID 1 MG TAB PO SCH (09:02)
[2023-11-18] MEDS: KETOROLAC 15 MG/ML 1 ML VIAL IVP PRN ×2 (09:03→16:50)
[2023-11-18] MEDS: MULTIVITAMINS, THERA 1 EACH TAB PO SCH (09:09)
[2023-11-18] MEDS: DULoxetine HCL 20 MG CAPSULE.DR PO SCH (09:09)
--- NOTE | 2023-11-18 11:13 | P.HPIM ---
History of Present Illness H&P Date: 11/18/23 Chief Complaint: COPD exacerbation/impending DTs HISTORY OF PRESENT ILLNESS: This is a 58-year-old female whom I met for the first time yesterday in my office came as a follow-up from recent hospitalization first at [facility] and then at [facility], after she was admitted to the hospital for severe hyponatremia and what appears to be impending DTs, patient has a longstanding history of chronic alcohol use and dependence, she appears to be drinking at least 1/5 of liquor on and off, according to her significant other who brought her to the office yesterday, patient was smelling alcohol in the office, she was shaking all over the place, with hypertension and tachycardia her heart rate was around [address] Chairez I sent the patient to the ER for evaluation for possible impending DTs she was also complaining of significant shortness of breath, due to what appears to be a COPD exacerbation, patient was started on Solu-Medrol 60 mg IV push every 6 hours, DuoNeb 3 mm nebulization 4 times every day, she was also started on Pulmicort 1 mg nebulization twice every day, her chest x-ray did not show evidence of acute infiltrate, patient also was started on banana bag, she was placed on thiamine folic acid and B12, she was placed on CIWA protocol I started the patient on clonidine 0.1 mg orally twice every day as well as metoprolol ER 25 mg once every day, patient will be seen in consultation by pulmonary medicine, she will be admitted to a telemetry unit, at this stage since the patient appears to be better we can switch her to medical surgical unit with telemetry. REVIEW OF SYSTEMS: Constitutional: No documented fever, no chills, no night sweats. No weight change. No weakness, fatigue or lethargy. No daytime sleepiness. EENT: No headache. No blurred vision or double vision, no loss of vision. No loss of Hearing, no ringing in the ears, no dizziness. No nasal drainage or congestion. No epistaxis. No sore throat. Lungs: No shortness of breath, no cough, no sputum production. No wheezing. Reports dyspnea with activity. Cardiovascular: No chest pain, no lower extremity edema. positive for pal pitations. No paroxysmal nocturnal dyspnea. No orthopnea. No lightheadedness or dizziness. No syncopal episodes. Abdominal: Reports abdominal pain. No nausea, vomiting. No diarrhea. No constipation. No bloody or tarry stools reports loss of appetite. Genitourinary: No dysuria, increased frequency, urgency. No urinary retention. Musculoskeletal: positive for myalgias. No muscle weakness, no gait dysfunction, no frequent falls. positive for back pain. positive for neck pain. Integumentary: No wounds, no lesions. No rash or pruritus. No unusual bruising. No change in hair or nails. Neurologic: No aphasia. No facial droop. No change in mentation. No head injury. No headache. No paralysis. No paresthesia. Psychiatric: positive for depression. positive for anxiety. No mood swings. Endocrine: No abnormal blood sugars. No weight change. PAST MEDICAL HISTORY: Hypertension and hypertensive cardiovascular disease. Hyponatremia. Fibromyalgia. Moderate COPD. Chronic tobacco use and dependence. Chronic alcohol use and dependence. Osteoarthritis. Spondylosis of the cervical spine. Spondylosis of the lumbar spine. PAST SURGICAL HISTORY: Left hip ORIF 2016 Appendectomy. Partial hysterectomy Jaw surgery Colonoscopy 2013 SOCIAL HISTORY: Patient smoked a pack every day since she was 15-year-old, and she stated that she quit about 2-month ago she continues to smoke on and off, she drinks quite a bit of alcohol, beer and sometimes she drinks 1/5 of liquor on and off, she has issue with alcohol and she has been in the hospital for DTs in the past. No seizure, she does use marijuana, she denies any other drug use or abuse. FAMILY HISTORY: Father at age of 77 from [place], mother at age of 50 from lung cancer with mets to the bone, patient had 3 brothers 1 at age of 26 from motor vehicle accident 2 are okay, patient had 2 sisters 1 at the age of 64 from colon cancer the other 1 is okay, patient has 2 daughters alive and well. PHYSICAL EXAMINATION: General: 58-year-old female sitting up in bed appears to be more rested since yesterday HEENT: Head is atraumatic, normocephalic, pupils were equal round reactive to light and recommendation, extraocular muscle movement were intact, sclera nonicteric, conjunctivae were pale, mucous membranes of the mouth are somewhat dry. Neck: Supple, no JVP, normal carotid upstroke bilaterally, no lymphadenopathy. Chest: Decreased breath sounds at the bases, few rhonchi, positive for expira tory wheezes, no chest wall tenderness, no intercostal retractions. Heart: First heart sound is normal, second heart sound is normal there is no gallop or murmur. Abdomen: Soft, nontender, nondistended, positive bowel sounds. Extremities: There is no edema no calf tenderness DP +2 bilaterally. Neurologic examination: Patient is awake alert and oriented x3, cranial nerves II-12 appear grossly intact, muscle power were 5 out of 5 in upper extremities and 5 out of 5 in bilateral lower extremities, deep tendon reflexes normal bilaterally, tremors is better. ASSESSMENT AND PLAN: 1. Impending DTs. Patient was counseled about abstinence from alcohol, she was started on banana bag, she was placed on CIWA protocol, she was placed on thiamine 100 mg once every day, folic acid 1 mg once every day multivitamin once every day, she was started on clonidine 0.1 mg orally twice every day, metoprolo l ER 25 mg once every day, she will be monitored in the hospital very closely. 2. Acute COPD exacerbation. Start the patient on Solu-Medrol 60 mg IV push every 6 hours, DuoNeb 3 mm nebulization 4 times every day, Pulmicort 1 mg nebulization twice every day, monitor the patient's symptoms very closely, patient chest x-ray is negative, no evidence of pneumonia. Pulmonary consultation with Dr. Gomez. 3. Hypertension and hypertensive cardiovascular disease. Continue clonidine 0.1 mg twice every day, continue patient on metoprolol ER 25 mg at bedtime. 4. Mixed hyperlipidemia, will check her lipid panel as an outpatient. 5. History of hyponatremia. Her sodium is back to normal, we will hold off sodium and chloride tablets for now. 6. History of fibromyalgia with chronic pain syndrome. Start the patient on duloxetine 20 mg orally once every day, start the patient on Toradol and increase the dose to 30 mg IV every 6 hours as needed, discontinue Motrin, discontinue Naprosyn, continue Tylenol as needed. 7. Chronic tobacco use and dependence patient has been without cigarettes for the last 2 months. Continue with abstinence from nicotine products. 8. THC use. Counseled against its use. 9. Anxiety and depressive disorder. Continue duloxetine 20 mg once every day, may need to add a small dose of naltrexone 50 mg orally once every day as an outpatient. 10. Chronic alcohol use and dependence. The patient was counseled about abstinence from alcohol, increase fluid intake, start the patient on duloxetine 20 mg once every day, may need to add naltrexone 50 mg orally once every day as an outpatient. 11. 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 12. family history of colon cancer patient will need to have a colonoscopy since her last colonoscopy was more than 10 years ago. She should have that every 5 years 13. DVT prophylaxis. Lovenox 40 mg subcutaneously every 24 hours. 14. GI prophylaxis. Continue Protonix 40 mg orally once every day. 15. Admit to inpatient. Estimated length of stay 2 midnights. 16. Patient is full code. 17. direct service worker consultation for discharge planning. Past Medical History Past Medical History: Diabetes Mellitus Additional Past Medical History / Comment(s): back pain, migraines, f ibromyalgianh, history of seizures when withdrawling from "tramadol" or another medicaiton "years ago" per 10/19/23 History of Any Multi-Drug Resistant Organisms: None Reported Past Surgical History: Orthopedic Surgery Smoking Status: Current every day smoker Medications and Allergies Home Medications Medication Instructions Recorded Confirmed Type Ondansetron Odt [Zofran ODT] 4 mg PO Q12H PRN 10/20/23 11/17/23 History Albuterol Inhaler [Ventolin Hfa 1 puff INHALATION QID PRN #8 gm 10/23/23 11/17/23 Rx Inhaler] Famotidine [Pepcid] 20 mg PO DAILY #30 tab 10/23/23 11/17/23 Rx Folic Acid 1 mg PO DAILY #30 tab 10/23/23 11/17/23 Rx Thiamine [Vitamin B-1] 100 mg PO DAILY #30 tab 10/23/23 11/17/23 Rx Naproxen [Naprosyn] 250 mg PO BID PRN 10 Days #20 tab 10/24/23 11/17/23 Rx Sodium Chloride Tab 1 gm PO DAILY #30 tablet 10/24/23 11/17/23 Rx Pantoprazole [Protonix] 40 mg PO DAILY 11/17/23 11/17/23 History Allergies Allergy/AdvReac Type Severity Reaction Status Date / Time No Known Allergies Allergy Verified 11/17/23 13:08 Physical Exam Vitals: Vital Signs Pulse Resp BP Pulse Ox 11/18/23 09:29 77 18 11/18/23 09:21 95 11/18/23 09:18 73 18 11/18/23 09:00 73 19 152/80 98 11/18/23 06:09 76 18 112/73 97 11/18/23 05:00 79 18 131/79 96 11/18/23 01:28 89 18 154/95 97 11/17/23 21:27 103 H 18 130/80 97 11/17/23 20:16 100 11/17/23 20:05 101 H 11/17/23 19:02 117 H 20 158/94 95 11/17/23 17:32 125 H 16 153/111 93 L 11/17/23 17:07 133 H 24 152/77 85 L 11/17/23 12:53 120 H 24 146/78 90 L Results CBC & Chem 7: 11/17/23 11:11 11/17/23 11:11 Labs: Abnormal Lab Results - Last 24 Hours (Table) 11/17/23 11/17/23 11/17/23 Range/Units 11:11 11:11 11:11 WBC 3.7 L (3.8-10.6) k/uL Hct 49.8 H (34.0-46.0) % MCV 106.1 H D (80.0-100.0) fL MCHC 29.6 L (31.0-37.0) g/dL Lymphocytes # 0.8 L (1.0-4.8) k/uL D-Dimer (<0.60) mg/L FEU Carbon Dioxide 20 L (22-30) mmol/L BUN <2 L (7-17) mg/dL Plasma Lactic Acid Nic 5.6 H* (0.7-2.0) mmol/L Phosphorus 5.1 H (2.5-4.5) mg/dL AST 49 H (14-36) U/L Alkaline Phosphatase 170 H (38-126) U/L Albumin 5.1 H (3.5-5.0) g/dL Urine Ketones (Negative) U Benzodiazepines Scrn (NotDetected) U Marijuana (THC) Screen (NotDetected) 11/17/23 11/17/23 11/17/23 Range/Units 13:00 13:00 19:00 WBC (3.8-10.6) k/uL Hct (34.0-46.0) % MCV (80.0-100.0) fL MCHC (31.0-37.0) g/dL Lymphocytes # (1.0-4.8) k/uL D-Dimer 0.80 H (<0.60) mg/L FEU Carbon Dioxide (22-30) mmol/L BUN (7-17) mg/dL Plasma Lactic Acid Nic (0.7-2.0) mmol/L Phosphorus (2.5-4.5) mg/dL AST (14-36) U/L Alkaline Phosphatase (38-126) U/L Albumin (3.5-5.0) g/dL Urine Ketones Trace H (Negative) U Benzodiazepines Scrn Detected H (NotDetected) U Marijuana (THC) Screen Detected H (NotDetected)
[2023-11-18 12:41] LABS: Basophils % (A) 0 %; Eosinophils % (A) 3 %; HCT 43.3 % (34.0-46.0); HGB 13.8 gm/dL (11.4-16.0); Lymphocytes # (A) 0.2 k/uL (1.0-4.8); Lymphocytes % (A) 16 %; MCH 33.2 pg (25.0-35.0); MCHC 31.7 g/dL (31.0-37.0); MCV 104.5 fL (80.0-100.0); Macrocytosis Slight; Mean Platelet Volume 9.7; Monocytes # (A) 0.1 k/uL (0-1.0); Monocytes % (A) 8 %; Neutrophils # (A) 1.1 k/uL (1.3-7.7); Neutrophils % (A) 73 %; Platelet Count 145 k/uL (150-450); RBC 4.15 m/uL (3.80-5.40); RDW 13.7 % (11.5-15.5); WBC 1.5 k/uL (3.8-10.6)
[2023-11-18 13:15] LABS: ALT 19 U/L (4-34); AST 29 U/L (14-36); African American GFR (CKD) >90 (>60 ml/min/1.73 sqM); Alkaline Phosphatase 123 U/L (38-126); Anion Gap 4 mmol/L; Blood Urea Nitrogen 4 mg/dL (7-17); Calcium 9.1 mg/dL (8.4-10.2); Carbon Dioxide 24 mmol/L (22-30); Chloride 105 mmol/L (98-107); Glucose 178 mg/dL (74-99); Non-African American GFR(CKD) >90 (>60 ml/min/1.73 sqM); Potassium 4.7 mmol/L (3.5-5.1); Sodium 133 mmol/L (137-145); Total Bilirubin 0.6 mg/dL (0.2-1.3); Total Protein 6.4 g/dL (6.3-8.2)
--- NOTE | 2023-11-18 19:46 | P.CNPUL ---
History of Present Illness Consult date: 11/18/23 Reason for consult: COPD History of present illness: This is a 58-year-old female patient with history of COPD and the patient also has history of alcoholism. The patient was recently hospitalized at [facility], discharged to be readmitted today to [facility] because of worsening shortness of breath. She presented emergency department yesterday having his shortness of breath on the same time the patient was complaining of nausea and vomiting. Her GI symptoms are essentially chronic in nature. Accordingly, the patient was evaluated and she was found to be actively bronchospastic and wheezy and she was hospitalized with a history of exacerbation and management of nausea and emesis. For now, the patient has a WBC count of 3.7 hemoglobin of 14.8 and a platelet count of 222. Her D-dimer is at 0.8. Electrolytes are all stable. Serum bicarb is at 20, BUN is at 2 with a creatinine of 0.6. Lactic acid level was at 1.8. LFTs are normal. Amylase and lipase are within normal limits. UA is negative. Urine drug screen is positive for marijuana and benzodiazepines. The patient has been maintained on bilateral wrist pain. On outpatient basis. She states that she has quit smoking recently. Chest x-ray was reviewed from this current admission and it showed no acute process. In terms of her nausea emesis, this has subsided. The patient has no active signs of delirium tremens at this point in time. Noted at time of admission, her alcohol level was at 56. Review of Systems All systems: negative Constitutional: Reports fatigue Eyes: denies as per HPI, denies blurred vision, denies bulging eye, denies decreased vision, denies diplopia, denies discharge, denies dry eye, denies irritation, denies itching, denies pain, denies photophobia, denies loss of peripheral vision, denies loss of vision, denies tunnel vision/blind spots Ears: deny: decreased hearing, ear discharge, earache, tinnitus Ears, nose, mouth and throat: Reports as per HPI Breasts: absent: as per HPI, change in shape, gynecomastia, masses, nipple discharge, pain, skin changes, swelling Cardiovascular: Reports dyspnea on exertion Respiratory: Reports cough, Reports dyspnea, Reports wheezing Gastrointestinal: Reports nausea, Reports vomiting Genitourinary: Reports as per HPI Menstruation: Reports as per HPI Musculoskeletal: Reports as per HPI Musculoskeletal: absent: ankle pain, ankle stiffness, ankle swelling, as per HPI, elbow pain, elbow stiffness, elbow swelling, foot pain, foot stiffness, foot swelling, hand pain, hand stiffness, hand swelling, hip pain, hip stiffness, hip swelling, knee pain, knee stiffness, knee swelling, shoulder pain, shoulder stiffness, shoulder swelling, wrist pain, wrist stiffness, wrist swelling Integumentary: Reports as per HPI Neurological: Reports as per HPI Psychiatric: Reports as per HPI Endocrine: Reports as per HPI Hematologic/Lymphatic: Reports as per HPI Allergic/Immunologic: Reports as per HPI Past Medical History Past Medical History: Diabetes Mellitus Additional Past Medical History / Comment(s): back pain, migraines, fibromyalgianh, history of seizures when withdrawling from "tramadol" or another medicaiton "years ago" per 10/19/23 History of Any Multi-Drug Resistant Organisms: None Reported Past Surgical History: Orthopedic Surgery Smoking Status: Current every day smoker Medications and Allergies Home Medications Medication Instructions Recorded Confirmed Type Ondansetron Odt [Zofran ODT] 4 mg PO Q12H PRN 10/20/23 11/17/23 History Albuterol Inhaler [Ventolin Hfa 1 puff INHALATION QID PRN #8 gm 10/23/23 11/17/23 Rx Inhaler] Famotidine [Pepcid] 20 mg PO DAILY #30 tab 10/23/23 11/17/23 Rx Folic Acid 1 mg PO DAILY #30 tab 10/23/23 11/17/23 Rx Thiamine [Vitamin B-1] 100 mg PO DAILY #30 tab 10/23/23 11/17/23 Rx Naproxen [Naprosyn] 250 mg PO BID PRN 10 Days #20 tab 10/24/23 11/17/23 Rx Sodium Chloride Tab 1 gm PO DAILY #30 tablet 10/24/23 11/17/23 Rx Pantoprazole [Protonix] 40 mg PO DAILY 11/17/23 11/17/23 History Allergies Allergy/AdvReac Type Severity Reaction Status Date / Time No Known Allergies Allergy Verified 11/17/23 13:08 Physical Exam Vitals: Vital Signs Temp Pulse Resp BP Pulse Ox 11/18/23 09:29 77 18 11/18/23 09:21 95 11/18/23 09:18 73 18 11/18/23 09:00 73 19 152/80 98 11/18/23 06:09 76 18 112/73 97 11/18/23 05:00 79 18 131/79 96 11/18/23 01:28 89 18 154/95 97 11/17/23 21:27 103 H 18 130/80 97 11/17/23 20:16 100 11/17/23 20:05 101 H 11/17/23 19:02 117 H 20 158/94 95 11/17/23 17:32 125 H 16 153/111 93 L 11/17/23 17:07 133 H 24 152/77 85 L 11/17/23 12:53 120 H 24 146/78 90 L 11/17/23 10:42 120 H 20 140/80 98 11/17/23 10:31 99.6 F 125 H 24 159/78 95 General: 58-year-old female, comfortable, no acute respiratory distress currently on 2 L of O2 nasal cannula HEENT: Head is atraumatic, normocephalic, pupils were equal round reactive to light and recommendation, extraocular muscle movement were intact, sclera nonicteric, conjunctivae were pale, mucous membranes of the mouth are somewhat dry. Neck: Supple, no JVP, normal carotid upstroke bilaterally, no lymphadenopathy. Chest: Decreased breath sounds at the bases, few rhonchi, positive for expiratory wheezes, no chest wall tenderness, no intercostal retractions. Heart: First heart sound is normal, second heart sound is normal there is no ga llop or murmur. Abdomen: Soft, nontender, nondistended, positive bowel sounds. Extremities: There is no edema no calf tenderness DP +2 bilaterally. Neurologic examination: Patient is awake alert and oriented x3, cranial nerves II-12 appear grossly intact, muscle power were 5 out of 5 in upper extremities and 5 out of 5 in bilateral lower extremities, deep tendon reflexes normal bilaterally, tremors is better. Results - Laboratory Findings CBC and BMP: 11/18/23 12:00 11/18/23 12:00 PT/INR, D-dimer D-Dimer 0.80 mg/L FEU (<0.60) H 11/17/23 19:00 Abnormal lab findings: Abnormal Labs 11/17/23 11/17/23 11/17/23 11:11 11:11 11:11 WBC 3.7 L Hct 49.8 H MCV 106.1 H D MCHC 29.6 L Lymphocytes # 0.8 L D-Dimer Carbon Dioxide 20 L BUN <2 L Plasma Lactic Acid Nic 5.6 H* Phosphorus 5.1 H AST 49 H Alkaline Phosphatase 170 H Albumin 5.1 H Urine Ketones U Benzodiazepines Scrn U Marijuana (THC) Screen 11/17/23 11/17/23 11/17/23 13:00 13:00 19:00 WBC Hct MCV MCHC Lymphocytes # D-Dimer 0.80 H Carbon Dioxide BUN Plasma Lactic Acid Nic Phosphorus AST Alkaline Phosphatase Albumin Urine Ketones Trace H U Benzodiazepines Scrn Detected H U Marijuana (THC) Screen Detected H Assessment and Plan Plan: Acute exacerbation of COPD with secondary shortness of breath, chest x-ray is free of any acute pulm infiltration Acute hypoxic respiratory failure and the patient is currently on oxygen 2 L/min nasal cannula. Chronic alcoholism with acute alcohol intoxication at time of admission we will watch for any signs of delirium tremens Nausea and emesis with normal amylase and lipase. Abdominal exam is benign. Could be alcohol induced. 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 twice a day for blood pressure control Will follow
[2023-11-19 06:54] LABS: Basophils % (A) 0 %; Eosinophils % (A) 0 %; HCT 38.2 % (34.0-46.0); HGB 12.1 gm/dL (11.4-16.0); Lymphocytes # (A) 0.4 k/uL (1.0-4.8); Lymphocytes % (A) 12 %; MCHC 31.7 g/dL (31.0-37.0); MCV 104.1 fL (80.0-100.0); Macrocytosis Slight; Mean Platelet Volume 8.7; Monocytes # (A) 0.2 k/uL (0-1.0); Monocytes % (A) 7 %; Neutrophils # (A) 2.6 k/uL (1.3-7.7); Neutrophils % (A) 81 %; Platelet Count 178 k/uL (150-450); RBC 3.67 m/uL (3.80-5.40); RDW 13.5 % (11.5-15.5); WBC 3.2 k/uL (3.8-10.6)
[2023-11-19 07:14] LABS: ALT 14 U/L (4-34); AST 20 U/L (14-36); African American GFR (CKD) >90 (>60 ml/min/1.73 sqM); Albumin 3.5 g/dL (3.5-5.0); Alkaline Phosphatase 92 U/L (38-126); Anion Gap 1 mmol/L; Blood Urea Nitrogen 9 mg/dL (7-17); Calcium 8.7 mg/dL (8.4-10.2); Carbon Dioxide 28 mmol/L (22-30); Chloride 103 mmol/L (98-107); Glucose 149 mg/dL (74-99); Magnesium 1.6 mg/dL (1.6-2.3); Non-African American GFR(CKD) >90 (>60 ml/min/1.73 sqM); Potassium 4.5 mmol/L (3.5-5.1); Sodium 132 mmol/L (137-145); Total Bilirubin 0.3 mg/dL (0.2-1.3); Total Protein 5.7 g/dL (6.3-8.2)
--- NOTE | 2023-11-19 12:14 | P.PN ---
Subjective Progress Note Date: 11/19/23 This is a 58-year-old female patient with history of COPD and the patient also has history of alcoholism. The patient was recently hospitalized at [facility], discharged to be readmitted today to [facility] because of worsening shortness of breath. She presented emergency department yesterday having his shortness of breath on the same time the patient was complaining of nausea and vomiting. Her GI symptoms are essentially chronic in nature. Accordingly, the patient was evaluated and she was found to be actively bronchospastic and wheezy and she was hospitalized with a history of exacerbation and management of nausea and emesis. For now, the patient has a WBC count of 3.7 hemoglobin of 14.8 and a platelet count of 222. Her D-dimer is at 0.8. Electrolytes are all stable. Serum bicarb is at 20, BUN is at 2 with a creatinine of 0.6. Lactic acid level was at 1.8. LFTs are normal. Amylase and lipase are within normal limits. UA is negative. Urine drug screen is positive for marijuana and benzodiazepines. The patient has been maintained on bilateral wrist pain. On outpatient basis. She states that she has quit smoking recently. Chest x-ray was reviewed from this current admission and it showed no acute process. In terms of her nausea emesis, this has subsided. The patient has no active signs of delirium tremens at this point in time. Noted at time of admission, her alcohol level was at 56. 11/19/2023, patient is being seen for a follow-up. The patient is being treated for an acute COPD exacerbation. She is feeling much better. No signs of any delirium tremens. No nausea or vomiting and she is tolerating her diet. White cell count of 3.2 with a hemoglobin of 4.1 and a platelet count of 178. Electrolytes are all stable. Less bronchospastic and wheezy compared to yesterday. She remains on bronchodilators. She remains on Perforomist and Pulmicort nebulized treatments twice a day and she remains on IV Solu-Medrol. Pulse ox is currently 98% on 2 L of oxygen by nasal cannula. Objective - Vital Signs Vital signs: Vital Signs Temp 98.2 F 11/19/23 08:01 Pulse 72 11/19/23 09:11 Resp 11/19/23 08:01 BP 118/78 11/19/23 08:01 Pulse Ox 98 11/19/23 09:14 FiO2 Intake & Output 11/18/23 11/19/23 11/19/23 18:59 06:59 18:59 Intake Total 240 Balance 240 Weight 58.967 kg Intake: Oral 240 Other: Voiding Method Toilet - Exam General: 58-year-old female, comfortable, no acute respiratory distress currently on 2 L of O2 nasal cannula HEENT: Head is atraumatic, normocephalic, pupils were equal round reactive to light and recommendation, extraocular muscle movement were intact, sclera nonicteric, conjunctivae were pale, mucous membranes of the mouth are somewhat dry. Neck: Supple, no JVP, normal carotid upstroke bilaterally, no lymphadenopathy. Chest: Decreased breath sounds at the bases, few rhonchi, positive for expiratory wheezes, no chest wall tenderness, no intercostal retractions. Heart: First heart sound is normal, second heart sound is normal there is no gallop or murmur. Abdomen: Soft, nontender, nondistended, positive bowel sounds. Extremities: There is no edema no calf tenderness DP +2 bilaterally. Neurologic examination: Patient is awake alert and oriented x3, cranial nerves II-12 appear grossly intact, muscle power were 5 out of 5 in upper extremities and 5 out of 5 in bilateral lower extremities, deep tendon reflexes normal bilaterally, tremors is better. - Labs CBC & Chem 7: 11/19/23 06:20 11/19/23 06:20 Labs: Abnormal Lab Results - Last 24 Hours (Table) 11/18/23 11/18/23 11/19/23 Range/Units 12:00 12:00 06:20 WBC 1.5 L 3.2 L (3.8-10.6) k/uL RBC 3.67 L (3.80-5.40) m/uL MCV 104.5 H 104.1 H (80.0-100.0) fL Plt Count 145 L (150-450) k/uL Neutrophils # 1.1 L (1.3-7.7) k/uL Lymphocytes # 0.2 L 0.4 L (1.0-4.8) k/uL Sodium 133 L (137-145) mmol/L BUN 4 L (7-17) mg/dL Creatinine 0.51 L (0.52-1.04) mg/dL Glucose 178 H (74-99) mg/dL Total Protein (6.3-8.2) g/dL 11/19/23 Range/Units 06:20 WBC (3.8-10.6) k/uL RBC (3.80-5.40) m/uL MCV (80.0-100.0) fL Plt Count (150-450) k/uL Neutrophils # (1.3-7.7) k/uL Lymphocytes # (1.0-4.8) k/uL Sodium 132 L (137-145) mmol/L BUN (7-17) mg/dL Creatinine (0.52-1.04) mg/dL Glucose 149 H (74-99) mg/dL Total Protein 5.7 L (6.3-8.2) g/dL Assessment and Plan Plan: Acute exacerbation of COPD with secondary shortness of breath, chest x-ray is free of any acute pulm infiltration Acute hypoxic respiratory failure and the patient is currently on oxygen 2 L/min nasal cannula. Chronic alcoholism with acute alcohol intoxication at time of admission we will watch for any signs of delirium tremens Nausea and emesis with normal amylase and lipase. Abdominal exam is benign. Could be alcohol induced. 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 twice a day for blood pressure control, blood pressure con trol is improved Will follow
--- NOTE | 2023-11-19 12:36 | P.PN ---
Subjective Progress Note Date: 11/19/23 HISTORY OF PRESENT ILLNESS: This is a 58-year-old female whom I met for the first time yesterday in my office came as a follow-up from recent hospitalization first at [facility] and then at [facility], after she was admitted to the hospital for severe hyponatremia and what appears to be impending DTs, patient has a longstanding history of chronic alcohol use and dependence, she appears to be drinking at least 1/5 of liquor on and off, according to her significant othe r who brought her to the office yesterday, patient was smelling alcohol in the office, she was shaking all over the place, with hypertension and tachycardia her heart rate was around [address] Chairez I sent the patient to the ER for evaluation for possible impending DTs she was also complaining of significant shortness of breath, due to what appears to be a COPD exacerbation, patient was started on Solu-Medrol 60 mg IV push every 6 hours, DuoNeb 3 mm nebulization 4 times every day, she was also started on Pulmicort 1 mg nebulization twice every day, her chest x-ray did not show evidence of acute infiltrate, patient also was started on banana bag, she was placed on thiamine folic acid and B12, she was placed on CIWA protocol I started the patient on clonidine 0.1 mg orally twice every day as well as metoprolol ER 25 mg once every day, patient will be seen in consultation by pulmonary medicine, she will be admitted to a telemetry unit, at this stage since the patient appears to be better we can switch her to medical surgical unit with telemetry. 11/18: Patient sitting up in bed she is complaining of minimal expiratory wheezes at this time, she is not coughing up any phlegm or blood, she did receive some Ativan today because of her agitation, she continues to be on the CIWA protocol for her alcohol withdrawal, she was seen earlier by pulmonary medicine, we will continue on current Solu-Medrol, continue nebulized treatment, continue the current treatment plan, monitor the patient kidney function test very closely, as the patient is on Toradol doses we will max out in few days. Patient was instructed with her at the bedside about abstinence from cigarette as well as abstinence from alcohol, and I will place her on a small dose of naltrexone 50 mg orally once every day as an outpatient and continue with duloxetine 20 mg orally once every day as well for pain control and for fibromyalgia. REVIEW OF SYSTEMS: Constitutional: No documented fever, no chills, no night sweats. No weight change. No weakness, fatigue or lethargy. No daytime sleepiness. EENT: No headache. No blurred vision or double vision, no loss of vision. No loss of Hearing, no ringing in the ears, no dizziness. No nasal drainage or congestion. No epistaxis. No sore throat. Lungs: No shortness of breath, no cough, no sputum production. No wheezing. Reports dyspnea with activity. Cardiovascular: No chest pain, no lower extremity edema. positive for palpitations. No paroxysmal nocturnal dyspnea. No orthopnea. No lightheadedness or dizziness. No syncopal episodes. Abdominal: Reports abdominal pain. No nausea, vomiting. No diarrhea. No constipation. No bloody or tarry stools reports loss of appetite. Genitourinary: No dysuria, increased frequency, urgency. No urinary retention. Musculoskeletal: positive for myalgias. No muscle weakness, no gait dysfunc tion, no frequent falls. positive for back pain. positive for neck pain. Integumentary: No wounds, no lesions. No rash or pruritus. No unusual bruising. No change in hair or nails. Neurologic: No aphasia. No facial droop. No change in mentation. No head injury. No headache. No paralysis. No paresthesia. Psychiatric: positive for depression. positive for anxiety. No mood swings. Endocrine: No abnormal blood sugars. No weight change. PHYSICAL EXAMINATION: General: 58-year-old female sitting up in bed appears to be more rested since yesterday HEENT: Head is atraumatic, normocephalic, pupils were equal round reactive to light and recommendation, extraocular muscle movement were intact, sclera nonicteric, conjunctivae were pale, mucous membranes of the mouth are somewhat dry. Neck: Supple, no JVP, normal carotid upstroke bilaterally, no lymphadenopathy. Chest: Decreased breath sounds at the bases, few rhonchi, positive for expiratory wheezes, no chest wall tenderness, no intercostal retractions. Heart: First heart sound is normal, second heart sound is normal there is no gallop or murmur. Abdomen: Soft, nontender, nondistended, positive bowel sounds. Extremities: There is no edema no calf tenderness DP +2 bilaterally. Neurologic examination: Patient is awake alert and oriented x3, cranial nerves II-12 appear grossly intact, muscle power were 5 out of 5 in upper extremities and 5 out of 5 in bilateral lower extremities, deep tendon reflexes normal bilaterally, tremors is better. ASSESSMENT AND PLAN: 1. Impending DTs. Patient was counseled about abstinence from alcohol she was placed on CIWA protocol, she was placed on thiamine 100 mg once every day, folic acid 1 mg once every day multivitamin once every day, she was started on clonidine 0.1 mg orally twice every day, metoprolol ER 25 mg once every day, she will be monitored in the hospital very closely. 2. Acute COPD exacerbation. Start the patient on Solu-Medrol 40 mg IV push every 8 hours, DuoNeb 3 mm nebulization 4 times every day, Pulmicort 1 mg nebulization twice every day, monitor the patient's symptoms very closely, patient chest x-ray is negative, no evidence of pneumonia. Pulmonary consultation with Dr. Jason fajardo. 3. Hypertension and hypertensive cardiovascular disease. Continue clonidine 0.1 mg twice every day, continue patient on metoprolol ER 25 mg at bedtime. 4. Mixed hyperlipidemia, will check her lipid panel as an outpatient. 5. History of hyponatremia. Her sodium is back to normal, we will hold off sodium and chloride tablets for now. 6. History of fibromyalgia with chronic pain syndrome. Continue patient on duloxetine 20 mg orally once every day, continue Toradol and increase the dose to 30 mg IV every 6 hours as needed, discontinue Motrin, discontinue Naprosyn, continue Tylenol as needed. 7. Chronic tobacco use and dependence patient has been without cigarettes for the last 2 months. Continue with abstinence from nicotine products. 8. THC use. Counseled against its use. 9. Anxiety and depressive disorder. Continue duloxetine 20 mg once every day, may need to add a small dose of naltrexone 50 mg orally once every day as an outpatient. 10. Chronic alcohol use and dependence. The patient was counseled about absti nence from alcohol, increase fluid intake, start the patient on duloxetine 20 mg once every day, may need to add naltrexone 50 mg orally once every day as an outpatient. 11. 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 12. family history of colon cancer patient will need to have a colonoscopy since her last colonoscopy was more than 10 years ago. She should have that every 5 years 13. DVT prophylaxis. Lovenox 40 mg subcutaneously every 24 hours. 14. GI prophylaxis. Continue Protonix 40 mg orally once every day. 15. Will continue to follow. 16. Physical therapy evaluation 17. [employer] consultation for discharge planning. Objective - Vital Signs Vital signs: Vital Signs Temp 98.2 F 11/19/23 08:01 Pulse 76 11/19/23 12:07 Resp 20 11/19/23 11:15 BP 131/85 11/19/23 11:15 Pulse Ox 98 11/19/23 11:15 FiO2 Intake & Output 11/18/23 11/19/23 11/19/23 18:59 06:59 18:59 Intake Total 240 Balance 240 Weight 58.967 kg Intake: Oral 240 Other: Voiding Method Toilet Toilet - Labs CBC & Chem 7: 11/19/23 06:20 11/19/23 06:20 Labs: Abnormal Lab Results - Last 24 Hours (Table) 11/18/23 11/18/23 11/19/23 Range/Units 12:00 12:00 06:20 WBC 1.5 L 3.2 L (3.8-10.6) k/uL RBC 3.67 L (3.80-5.40) m/uL MCV 104.5 H 104.1 H (80.0-100.0) fL Plt Count 145 L (150-450) k/uL Neutrophils # 1.1 L (1.3-7.7) k/uL Lymphocytes # 0.2 L 0.4 L (1.0-4.8) k/uL Sodium 133 L (137-145) mmol/L BUN 4 L (7-17) mg/dL Creatinine 0.51 L (0.52-1.04) mg/dL Glucose 178 H (74-99) mg/dL Total Protein (6.3-8.2) g/dL 11/19/23 Range/Units 06:20 WBC (3.8-10.6) k/uL RBC (3.80-5.40) m/uL MCV (80.0-100.0) fL Plt Count (150-450) k/uL Neutrophils # (1.3-7.7) k/uL Lymphocytes # (1.0-4.8) k/uL Sodium 132 L (137-145) mmol/L BUN (7-17) mg/dL Creatinine (0.52-1.04) mg/dL Glucose 149 H (74-99) mg/dL Total Protein 5.7 L (6.3-8.2) g/dL
[2023-11-19] MEDS: methylPREDNISolone SOD SUCCI 40 MG/ML 1 ML VIAL IV SCH (20:11)
[2023-11-20 08:27] VITALS: RESP 16; TEMP 96.3
[2023-11-20 09:53] LABS: ALT 14 U/L (4-34); African American GFR (CKD) >90 (>60 ml/min/1.73 sqM); Albumin 3.6 g/dL (3.5-5.0); Anion Gap 8 mmol/L; Blood Urea Nitrogen 13 mg/dL (7-17); Calcium 8.7 mg/dL (8.4-10.2); Carbon Dioxide 19 mmol/L (22-30); Chloride 105 mmol/L (98-107); Glucose 144 mg/dL (74-99); Non-African American GFR(CKD) >90 (>60 ml/min/1.73 sqM); Sodium 132 mmol/L (137-145); Total Bilirubin 0.8 mg/dL (0.2-1.3); Total Protein 6.1 g/dL (6.3-8.2)
[2023-11-20 10:01] LABS: AST 31 U/L (14-36); Alkaline Phosphatase 72 U/L (38-126); Potassium 4.9 mmol/L (3.5-5.1)
[2023-11-20 11:18] LABS: Basophils % (A) 0 %; Eosinophils # (A) 0.1 k/uL (0-0.7); Eosinophils % (A) 2 %; HGB 13.3 gm/dL (11.4-16.0); Lymphocytes # (A) 0.3 k/uL (1.0-4.8); Lymphocytes % (A) 9 %; MCH 33.2 pg (25.0-35.0); MCHC 31.8 g/dL (31.0-37.0); MCV 104.5 fL (80.0-100.0); Macrocytosis Slight; Mean Platelet Volume 8.2; Monocytes # (A) 0.3 k/uL (0-1.0); Monocytes % (A) 9 %; Neutrophils # (A) 2.8 k/uL (1.3-7.7); Neutrophils % (A) 80 %; Platelet Count 200 k/uL (150-450); RBC 4.02 m/uL (3.80-5.40); RDW 13.5 % (11.5-15.5); WBC 3.6 k/uL (3.8-10.6)
[2023-11-20 11:37] VITALS: BP 157/84; PULSE 64
--- NOTE | 2023-11-20 13:44 | P.PN ---
Subjective Progress Note Date: 11/20/23 Principal diagnosis: Hypoxic respiratory failure secondary to acute exacerbation of COPD This is a 58-year-old female patient with history of COPD and the patient also has history of alcoholism. The patient was recently hospitalized at [facility], discharged to be readmitted today to [facility] because of worsening shortness of breath. She presented emergency department yesterday having his shortness of breath on the same time the patient was complaining of nausea and vomiting. Her GI symptoms are essentially chronic in nature. Accordingly, the patient was evaluated and she was found to be actively bronchospastic and wheezy and she was hospitalized with a history of exacerbation and management of nausea and emesis. For now, the patient has a W BC count of 3.7 hemoglobin of 14.8 and a platelet count of 222. Her D-dimer is at 0.8. Electrolytes are all stable. Serum bicarb is at 20, BUN is at 2 with a creatinine of 0.6. Lactic acid level was at 1.8. LFTs are normal. Amylase and lipase are within normal limits. UA is negative. Urine drug screen is positive for marijuana and benzodiazepines. The patient has been maintained on bilateral wrist pain. On outpatient basis. She states that she has quit smoking recently. Chest x-ray was reviewed from this current admission and it showed no acute process. In terms of her nausea emesis, this has subsided. The patient has no active signs of delirium tremens at this point in time. Noted at time of admission, her alcohol level was at 56. 11/19/2023, patient is being seen for a follow-up. The patient is being treated for an acute COPD exacerbation. She is feeling much better. No signs of any delirium tremens. No nausea or vomiting and she is tolerating her diet. White cell count of 3.2 with a hemoglobin of 4.1 and a platelet count of 178. Electrolytes are all stable. Less bronchospastic and wheezy compared to yesterday. She remains on bronchodilators. She remains on Perforomist and Pulmicort nebulized treatments twice a day and she remains on IV Solu-Medrol. Pulse ox is currently 98% on 2 L of oxygen by nasal cannula. Patient was evaluated today on 11/20/2023, patient is doing much better, breathing a lot easier. She is now on room air with O2 saturation 96%, patient is hemodynamically stable, feeling much better compared to how she felt when she first came in 2 days ago. Patient remains on bronchodilators and Solu-Medrol for her COPD. Chest x-ray on admission showed no evidence of infiltrate WBC count is 3.6 hemoglobin 13.3. Basic metabolic profile is normal renal profile is normal Objective - Vital Signs Vital signs: Vital Signs Temp 96.3 F L 11/20/23 08:00 Pulse 64 11/20/23 11:36 Resp 16 11/20/23 11:36 BP 157/84 11/20/23 11:36 Pulse Ox 96 11/20/23 11:36 FiO2 Intake & Output 11/19/23 11/20/23 11/20/23 18:59 06:59 18:59 Intake Total 360 120 Balance 360 120 Intake: Oral 360 120 Other: Voiding Method Toilet Toilet # Voids 1 - Exam General: 58-year-old female in no distress Skin: Skin is warm and dry and no rashes or lesions are noted. Eye: Pupils are equal, round and reactive to light, extra-ocular movements are intact; there is normal conjunctiva bilaterally. Ears, nose, mouth and throat: There are moist mucous membranes and no oral lesions. Neck: The neck is supple, there is no tenderness or JVD. Cardiovascular: There is a regular rate and rhythm. No murmur, rub or gallop is appreciated. Respiratory: Clear bilaterally no rhonchi no wheezes Gastrointestinal: Soft, non-distended, non-tender abdomen without masses or organomegaly noted. There is no rebound or guarding present. Bowel sounds are unremarkable. Back: There is no tenderness to palpation in the midline. There is no obvious deformity. Musculoskeletal: Normal ROM, no tenderness, There is no pedal edema. There is no calf tenderness or swelling. No cords were appreciated. Neurological: CN II-XII intact, Cranial nerves III through XII are intact. There are no obvious motor or sensory deficits. Coordination appears grossly intact. Speech is normal. Psychiatric: Cooperative, appropriate mood & affect, normal judgment. - Labs CBC & Chem 7: 11/20/23 11:08 11/20/23 08:41 Labs: Abnormal Lab Results - Last 24 Hours (Table) 11/20/23 11/20/23 Range/Units 08:41 11:08 WBC 3.6 L (3.8-10.6) k/uL MCV 104.5 H (80.0-100.0) fL Lymphocytes # 0.3 L (1.0-4.8) k/uL Sodium 132 L (137-145) mmol/L Carbon Dioxide 19 L (22-30) mmol/L Glucose 144 H (74-99) mg/dL Total Protein 6.1 L (6.3-8.2) g/dL Assessment and Plan Assessment: Impression: Acute exacerbation of COPD Acute hypoxic respiratory failure secondary to acute exacerbation of COPD History of alcoholism Dyslipidemia Fibromyalgia Marijuana use Chronic anxiety/generalized anxiety disorder History of spondylosis of cervical spine Recommendation: Continue present course of treatment including DuoNeb, Continue steroids, transition to oral prednisone Smoking cessation counseling Consider discharge planning if cleared by other consultants on the case. Patient should follow-up on outpatient basis regarding her COPD Will continue to follow while inpatient Time with Patient: Less than 30
--- NOTE | 2023-11-21 07:29 | CA ---
Transthoracic Echo Report Name: Nita Randall Age: 58 Gender: F : 1965 Exam Date: 11/20/2023 10:47 Exam Location: [facility] Ht (in): 67 Wt (lb): 130 Ordering Physician: Dianne Lyman MD Attending/Referring Phys: Forensic Dna Analyst May Beaver RDCS Procedure CPT: Indications: SANDRA Cardiac Hx: Technical Quality: Fair Contrast 1: Total Dose (mL): Contrast 2: Total Dose (mL): MEASUREMENTS (Male / Female) Normal Values 2D ECHO LV Diastolic Diameter PLAX 4.9 cm 4.2 - 5.9 / 3.9 - 5.3 cm LV Systolic Diameter PLAX 3.2 cm IVS Diastolic Thickness 0.9 cm 0.6 - 1.0 / 0.6 - 0.9 cm LVPW Diastolic Thickness 1.0 cm 0.6 - 1.0 / 0.6 - 0.9 cm LV Relative Wall Thickness 0.4 LA Volume 32.7 cm??? 18 - 58 / 22 - 52 cm??? LA Volume Index 19.6 cm???/m??? 16 - 28 cm???/m??? M-MODE Aortic Root Diameter MM 3.4 cm LA Systolic Diameter MM 3.4 cm LA Ao Ratio MM 1.0 DOPPLER AV Peak Velocity 133.6 cm/s AV Peak Gradient 7.1 mmHg AV Mean Velocity 84.5 cm/s AV Mean Gradient 3.4 mmHg AV Velocity Time Integral 26.4 cm LVOT Peak Velocity 102.4 cm/s LVOT Peak Gradient 4.2 mmHg LVOT Velocity Time Integral 19.9 cm MV Area PHT 4.2 cm??? Mitral E Point Velocity 91.2 cm/s Mitral A Point Velocity 103.4 cm/s Mitral E to A Ratio 0.9 MV Deceleration Time 180.6 ms MV E' Velocity 8.7 cm/s Mitral E to MV E' Ratio 10.5 TR Peak Velocity 253.7 cm/s TR Peak Gradient 25.8 mmHg Right Ventricular Systolic Press 30.1 mmHg FINDINGS Left Ventricle Mildly increased left ventricular wall thickness. Left ventricular cavity size normal. Normal left ventricular systolic function with no obvious regional wall motion abnormalities. Left ventricular ejection fraction is estimated at 55-60 %. Grade 1 diastolic dysfunction. Right Ventricle Normal right ventricular size and function. Right ventricular systolic pressure within normal limits. Right Atrium Normal right atrial size. Left Atrium Normal left atrial size. Mitral Valve Structurally normal mitral valve. Eglb-ao-obrjwxpu mitral regurgitation. Aortic Valve No aortic valve stenosis or regurgitation. Tricuspid Valve Structurally normal tricuspid valve. Mild tricuspid regurgitation. Pulmonic Valve Structurally normal pulmonic valve. Pericardium No pericardial effusion. Aorta Normal size aortic root and proximal ascending aorta. CONCLUSIONS Technically difficult study for interpretation Normal LV systolic function Mild to moderate mitral regurgitation Hyperdynamic interatrial septum Previewed by: Dr. Quinn Joshua MD (Electronically Signed) Final Date: 21 November 2023 07:28
[2023-11-21] MEDS ORDERED: predniSONE 20 MG TAB PO SCH (09:00)
--- NOTE | 2023-11-22 15:40 | P.DS ---
Providers Date of admission: 11/17/23 15:15 Expected date of discharge: 11/20/23 Attending physician: Dianne Lyman Consults: 11/17/23 18:35 Consult Physician Routine Consulting Provider: Kathy Gomez Consult Reason/Comments: COPD exacerbation Do you want consulting provider notified?: Yes Primary care physician: Dianne Lyman Assessment: HISTORY OF PRESENT ILLNESS: This is a 58-year-old female whom I met for the first time yesterday in my office came as a follow-up from recent hospitalization first at [facility] and then at [facility], after she was admitted to the hospital for severe hyponatremia and what appears to be impending DTs, patient has a longstanding history of chronic alcohol use and dependence, she appears to be drinking at least 1/5 of liquor on and off, according to her significant other who brought her to the office yesterday, patient was smelling alcohol in the office, she was shaking all over the place, with hypertension and tachycardia her heart rate was around [address] Chairez I sent the patient to the ER for evaluation for possible impending DTs she was also complaining of significant shortness of breath, due to what appears to be a COPD exacerbation, patient was started on Solu-Medrol 60 mg IV push every 6 hours, DuoNeb 3 mm nebulization 4 times every day, she was also started on Pulmicort 1 mg nebulization twice every day, her chest x-ray did not show evidence of acute infiltrate, patient also was started on banana bag, she was placed on thiamine folic acid and B12, she was placed on CIWA protocol I started the patient on clonidine 0.1 mg orally twice every day as well as metoprolol ER 25 mg once every day, patient will be seen in consultation by pulmonary medicine, she will be admitted to a telemetry unit, at this stage since the patient appears to be better we can switch her to medical surgical unit with telemetry. 11/18: Patient sitting up in bed she is complaining of minimal expiratory wheezes at this time, she is not coughing up any phlegm or blood, she did receive some Ativan today because of her agitation, she continues to be on the CIWA protocol for her alcohol withdrawal, she was seen earlier by pulmonary medicine, we will continue on current Solu-Medrol, continue nebulized treatment, continue the current treatment plan, monitor the patient kidney function test very closely, as the patient is on Toradol doses we will max out in few days. Patient was instructed with her at the bedside about abstinence from cigarette as well as abstinence from alcohol, and I will place her on a small dose of naltrexone 50 mg orally once every day as an outpatient and continue with duloxetine 20 mg orally once every day as well for pain control and for fibromyalgia. 11/19: Seen sitting up in bed in no apparent distress, she is breathing a lot better she continues to have pain according to the patient and she is not happy with the visit because of not giving her any pain medicine at this time, she has been getting Toradol 30 mg IV push every 6 hours, patient is asking to have some narcotic, I explained to the patient that she is not supposed to be on any na rcotic specially she is in alcoholics and thus will increase the risk of liver failure, and she has a high risk of addiction behavior, and she need to follow- up with us as an outpatient to discuss option of treatment however she stated that she does not want to follow-up with us at this time and she wants to be discharged home, patient is ready to be discharged home, I offered her to come and get care for the next 30 days, and after that the patient will be discharged from the practice because of patient noncompliance and due to her behavioral issues. Discharge diagnoses: 1. Impending DTs. 2. COPD exacerbation. 3. Hypertension and hypertensive cardiovascular disease. 4. Mixed hyperlipidemia, 5. History of hyponatremia. 6. History of fibromyalgia with chronic pain syndrome. 7. Chronic tobacco use and dependence 8. THC use. 9. Anxiety and depressive disorder. 10. Chronic alcohol use and dependence. 11. 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 12. family history of colon cancer will need colonoscopy as an outpatient. 13. Noncompliance. Patient Condition at Discharge: Serious Plan - Discharge Summary Discharge Rx Participant: No New Discharge Prescriptions: New Famotidine [Pepcid] 20 mg PO DAILY tab predniSONE 40 mg PO DAILY #40 tab cloNIDine HCL [Catapres] 0.1 mg PO BID #60 tab DULoxetine HCL [Cymbalta] 20 mg PO DAILY #30 cap Multivitamins, Thera [Multivitamin (formulary)] 1 each PO DAILY tab Metoprolol Succinate (ER) [Toprol XL] 25 mg PO DAILY #30 tab predniSONE 0 mg PO DIRECTED #40 tab Continue Ondansetron Odt [Zofran ODT] 4 mg PO Q12H PRN PRN Reason: Nausea And Vomiting Folic Acid 1 mg PO DAILY #30 tab Thiamine [Vitamin B-1] 100 mg PO DAILY #30 tab Albuterol Inhaler [Ventolin Hfa Inhaler] 1 puff INHALATION QID PRN #8 gm PRN Reason: Shortness Of Breath Or Wheezing Pantoprazole [Protonix] 40 mg PO DAILY Discontinued Famotidine [Pepcid] 20 mg PO DAILY #30 tab Naproxen [Naprosyn] 250 mg PO BID PRN 10 Days #20 tab PRN Reason: pain Sodium Chloride Tab 1 gm PO DAILY #30 tablet Discharge Medication List Ondansetron Odt [Zofran ODT] 4 mg PO Q12H PRN 10/20/23 [History] Folic Acid 1 mg PO DAILY #30 tab 10/23/23 [Rx] Thiamine [Vitamin B-1] 100 mg PO DAILY #30 tab 10/23/23 [Rx] Pantoprazole [Protonix] 40 mg PO DAILY 11/17/23 [History] Albuterol Inhaler [Ventolin Hfa Inhaler] 1 puff INHALATION QID PRN #8 gm 11/20/23 [Rx] DULoxetine HCL [Cymbalta] 20 mg PO DAILY #30 cap 11/20/23 [Rx] Famotidine [Pepcid] 20 mg PO DAILY tab 11/20/23 [Rx] Metoprolol Succinate (ER) [Toprol XL] 25 mg PO DAILY #30 tab 11/20/23 [Rx] Multivitamins, Thera [Multivitamin (formulary)] 1 each PO DAILY tab 11/20/23 [Rx] cloNIDine HCL [Catapres] 0.1 mg PO BID #60 tab 11/20/23 [Rx] predniSONE 0 mg PO DIRECTED #40 tab 11/20/23 [Rx] predniSONE 40 mg PO DAILY #40 tab 11/20/23 [Rx] Follow up Appointment(s)/Referral(s): Dianne Lyman MD [Primary Care Provider] - 1-2 days Discharge Disposition: HOME SELF-CARE
== END 2023-11-20 14:58 | disposition home or self-care (01) | DRG 140 ==
LOC: EC 10:05 → 1SOBS 15:15 → 3SCARD 16:03
PROVIDERS: ADMIT Internal Medicine; ATTEND Internal Medicine
DX: J44.1 Chronic obstructive pulmonary disease with (acute) exacerbation (principal); J96.01 Acute respiratory failure with hypoxia; M79.7 Fibromyalgia; E78.2 Mixed hyperlipidemia; F10.239 Alcohol dependence with withdrawal, unspecified; F17.200 Nicotine dependence, unspecified, uncomplicated; F32.A Depression, unspecified; F41.1 Generalized anxiety disorder; G43.909 Migraine, unspecified, not intractable, without status migrainosus; G89.4 Chronic pain syndrome; I11.9 Hypertensive heart disease without heart failure; Y90.2 Blood alcohol level of 40-59 mg/100 ml; Z79.899 Other long term (current) drug therapy; Z91.199 Patient's noncompliance with other medical treatment and regimen due to unspecified reason; Z71.41 Alcohol abuse counseling and surveillance of alcoholic; Z71.51 Drug abuse counseling and surveillance of drug abuser; Z71.6 Tobacco abuse counseling
CPT/HCPCS: 36415; 71046; 80053; 80306; 80320; 81003; 82150; 83605; 83690; 83735; 84100; 84484; 85025; 85379; 93005; 93306; 94640; 94760; 96361; 96372; 96374; 96375; 96376; 99285

== ENCOUNTER 2023-12-11 10:53 | Observation (INO) | payer OTHER ==
[2023-12-11] MEDS ORDERED: LORazepam 1 MG TAB PO PRN ×3 (10:57)
[2023-12-11] MEDS ORDERED: LORazepam 2 MG/ML INJ IV PRN ×2 (10:57)
--- NOTE | 2023-12-11 11:06 | ED ---
SOB HPI - General Stated Complaint: AMS Time Seen by Provider: 12/11/23 10:57 Source: RN notes reviewed, old records reviewed Limitations: no limitations - History of Present Illness Initial Comments: This is a 58-year-old female to the ER for evaluation patient presents today for evaluation of seizures and alcohol withdrawal with significantly altered mental status and poor historian Complaint: anxiety -: unknown Severity: severe Severity scale (1-10): 8 Quality: aching, throbbing Consistency: constant Improves With: nothing Known History Of: COPD Context: recent URI, anxiety, recent illness Associated Symptoms: denies other symptoms Treatments Prior to Arrival: oxygen - Related Data Home Medications Medication Instructions Recorded Confirmed Ondansetron Odt [Zofran ODT] 4 mg PO Q12H PRN 10/20/23 11/17/23 Pantoprazole [Protonix] 40 mg PO DAILY 11/17/23 11/17/23 Previous Rx's Medication Instructions Recorded Folic Acid 1 mg PO DAILY #30 tab 10/23/23 Thiamine [Vitamin B-1] 100 mg PO DAILY #30 tab 10/23/23 Albuterol Inhaler [Ventolin Hfa 1 puff INHALATION QID PRN #8 gm 11/20/23 Inhaler] DULoxetine HCL [Cymbalta] 20 mg PO DAILY #30 cap 11/20/23 Famotidine [Pepcid] 20 mg PO DAILY tab 11/20/23 Metoprolol Succinate (ER) [Toprol 25 mg PO DAILY #30 tab 11/20/23 XL] Multivitamins, Thera [Multivitamin 1 each PO DAILY tab 11/20/23 (formulary)] cloNIDine HCL [Catapres] 0.1 mg PO BID #60 tab 11/20/23 predniSONE 0 mg PO DIRECTED #40 tab 11/20/23 predniSONE 40 mg PO DAILY #40 tab 11/20/23 Allergies Allergy/AdvReac Type Severity Reaction Status Date / Time No Known Allergies Allergy Verified 11/17/23 13:08 Review of Systems ROS Statement: Those systems with pertinent positive or pertinent negative responses have been documented in the HPI. ROS Other: All systems not noted in ROS Statement are negative. Past Medical History Past Medical History: Diabetes Mellitus Additional Past Medical History / Comment(s): back pain, migraines, fi bromyalgianh, history of seizures when withdrawling from "tramadol" or another medicaiton "years ago" per 10/19/23 History of Any Multi-Drug Resistant Organisms: None Reported Past Surgical History: Orthopedic Surgery Past Psychological History: Anxiety, Depression Smoking Status: Current every day smoker Past Alcohol Use History: Daily Past Drug Use History: Cocaine, Marijuana General Exam General appearance: alert, in no apparent distress Head exam: Present: atraumatic, normocephalic, normal inspection Eye exam: Present: normal appearance, PERRL, EOMI. Absent: scleral icterus, conjunctival injection, periorbital swelling ENT exam: Present: normal exam, mucous membranes moist Neck exam: Present: normal inspection. Absent: tenderness, meningismus, lymphadenopathy Respiratory exam: Present: normal lung sounds bilaterally. Absent: respiratory distress, wheezes, rales, rhonchi, stridor Cardiovascular Exam: Present: regular rate, normal rhythm, normal heart sounds. Absent: systolic murmur, diastolic murmur, rubs, gallop, clicks GI/Abdominal exam: Present: soft, normal bowel sounds. Absent: distended, tenderness, guarding, rebound, rigid Extremities exam: Present: normal inspection, full ROM, normal capillary refill. Absent: tenderness, pedal edema, joint swelling, calf tenderness Back exam: Present: normal inspection Neurological exam: Present: alert, oriented X3, CN II-XII intact Psychiatric exam: Present: normal affect, normal mood Skin exam: Present: warm, dry, intact, normal color. Absent: rash Course Vital Signs 12/11/23 12/11/23 12/11/23 10:56 11:55 13:05 Temperature 98.1 F 98.4 F Pulse Rate 90 87 90 Respiratory 26 H 19 20 Rate Blood Pressure 147/98 140/94 136/87 O2 Sat by Pulse 93 L 96 95 Oximetry - Reevaluation(s) Reevaluation #1: 12/11/23 11:40 Medical records reviewed Reevaluation #2: 12/11/23 13:55 Has no improvement in symptoms here in the ER no recurrent seizure Reevaluation #3: 12/11/23 13:55 Patient informed of results Reevaluation #4: Was pt. sent in by a medical professional or institution (, PA, DICER MACHINE OPERATOR, urgent care, hospital, or custodial...) When possible be specific @ -no Did you speak to anyone other than the patient for history (EMS, parent, family, police, friend...)? What history was obtained from this source @ -no Did you review nursing and triage notes (agree or disagree)? Why? @ -agree Are old charts reviewed (outside hosp., previous admission, EMS record, old EKG, old radiological studies, urgent care reports/EKG's, custodial records)? Report findings @ -yes Differential Diagnosis (chest pain, altered mental status, abdominal pain women, abdominal pain men, vaginal bleeding, weakness, fever, dyspnea, syncope, headache, dizziness, GI bleed, back pain, seizure, CVA, palpatations, mental health, musculoskeletal)? @ -prior EKG interpreted by me (3pts min.). @ -yes X-rays interpreted by me (1pt min.). @ -yes negative for acute disease CT interpreted by me (1pt min.). @ -no U/S interpreted by me (1pt. min.). @ -no What testing was considered but not performed or refused? (CT, X-rays, U/S, labs)? Why? @ -none What meds were considered but not given or refused? Why? @ -none Did you discuss the management of the patient with other professionals (professionals i.e. , PA, DICER MACHINE OPERATOR, lab, RT, psych nurse, social worker masters, glass curvature gauger, teacher, space operations officer, test case developer)? Give summary @ -no Was smoking cessation discussed for >3mins.? @ -no Was critical care preformed (if so, how long)? @ -no Were there social determinants of health that impacted care today? How? (Homelessness, low income, unemployed, alcoholism, drug addiction, transportation, low edu. Level, literacy, decrease access to med. care, long-term, rehab)? @ -none Was there de-escalation of care discussed even if they declined (Discuss DNR or withdrawal of care, Hospice)? DNR status @ -no What co-morbidities impacted this encounter? (DM, HTN, Smoking, COPD, CAD, Cancer, CVA, ARF, Chemo, Hep., AIDS, mental health diagnosis, sleep apnea, morbid obesity)? @ -none Was patient admitted / discharged? Hospital course, mention meds given and route, prescriptions, significant lab abnormalities, going to OR and other pertinent info. @ - Undiagnosed new problem with uncertain prognosis? @ -no Drug Therapy requiring intensive monitoring for toxicity (Heparin, Nitro, Insulin, Cardizem)? @ -no Were any procedures done? @ -no Diagnosis/symptom? @ - Acute, or Chronic, or Acute on Chronic? @ -Acute Uncomplicated (without systemic symptoms) or Complicated (systemic symptoms)? @ -Complicated Side effects of treatment? @ -no Exacerbation, Progression, or Severe Exacerbation? @ -exacerbation Poses a threat to life or bodily function? How? (Chest pain, USA, GA, pneumonia, PE, COPD, DKA, ARF, appy, cholecystitis, CVA, Diverticulitis, Homicidal, Suicidal, threat to staff... and all critical care pts) @ -yes Reevaluation #5: Differential Seizure: Recurrent seizure disorder, febrile seizure, alcohol withdrawal, stimulants, meningitis, encephalitis, intercranial hemorrhage, intracranial tumor, stroke, eclampsia, thyrotoxicosis, hypocalcemia, hyponatremia, hypernatremia, hypomagnesemia, psychogenic, this is not meant to be an all-inclusive list. - Consultations Consultation #1: Spoke with To her who agrees to admit this patient Medical Decision Making - Medical Decision Making 58 female to the ED co ams, questionable seizure, found to be significant intoxicated and will admit for intoxication and pending alcohol withdrawal - Lab Data Result diagrams: 12/11/23 11:21 12/11/23 11:21 Lab Results 12/11/23 12/11/23 12/11/23 Range/Units 11:15 11:21 11:21 WBC 3.5 L (3.8-10.6) k/uL RBC 4.25 (3.80-5.40) m/uL Hgb 13.9 (11.4-16.0) gm/dL Hct 43.2 (34.0-46.0) % MCV 101.6 H (80.0-100.0) fL MCH 32.6 (25.0-35.0) pg MCHC 32.1 (31.0-37.0) g/dL RDW 13.9 (11.5-15.5) % Plt Count 245 (150-450) k/uL MPV 7.4 Neutrophils % 47 % Lymphocytes % 35 % Monocytes % 9 % Eosinophils % 4 % Basophils % 1 % Neutrophils # 1.7 (1.3-7.7) k/uL Lymphocytes # 1.2 (1.0-4.8) k/uL Monocytes # 0.3 (0-1.0) k/uL Eosinophils # 0.1 (0-0.7) k/uL Basophils # 0.0 (0-0.2) k/uL Macrocytosis Slight Sodium 140 (137-145) mmol/L Potassium 3.6 (3.5-5.1) mmol/L Chloride 111 H (98-107) mmol/L Carbon Dioxide 13 L (22-30) mmol/L Anion Gap 16 mmol/L BUN 4 L (7-17) mg/dL Creatinine 0.50 L (0.52-1.04) mg/dL Est GFR (CKD-EPI)AfAm >90 (>60 ml/min/1.73 sqM) Est GFR (CKD-EPI)NonAf >90 (>60 ml/min/1.73 sqM) Glucose 92 (74-99) mg/dL POC Glucose (mg/dL) 90 (70-110) mg/dL POC Glu Architect ID Suzi, Fadi Calcium 9.0 (8.4-10.2) mg/dL Phosphorus 3.0 (2.5-4.5) mg/dL Magnesium 1.7 (1.6-2.3) mg/dL Total Bilirubin 0.3 (0.2-1.3) mg/dL AST 41 H (14-36) U/L ALT 18 (4-34) U/L Alkaline Phosphatase 100 (38-126) U/L Total Protein 6.7 (6.3-8.2) g/dL Albumin 4.2 (3.5-5.0) g/dL Lipase 102 (23-300) U/L Serum Alcohol 228 H* mg/dL Disposition Clinical Impression: Alcohol withdrawal, Altered mental status, Recurrent seizures, Alcohol intoxication Disposition: ADMITTED IP TO THIS HOSP Condition: Fair Is patient prescribed a controlled substance at d/c from ED?: No Referrals: Dianne Lyman MD [Primary Care Provider] - 1-2 days
[2023-12-11 11:16] LABS: Glucose,Whole Blood 90 mg/dL (70-110)
[2023-12-11] MEDS: LORazepam 2 MG/ML INJ IV STA (11:22)
[2023-12-11] MEDS: SODIUM CHLORIDE 0.9% 1,000 ML IV STA (11:23)
[2023-12-11] MEDS: SODIUM CHLORIDE 0.9% 500 ML 500 ML IV STA (11:23)
[2023-12-11 11:34] LABS: Basophils % (A) 1 %; Eosinophils # (A) 0.1 k/uL (0-0.7); Eosinophils % (A) 4 %; HCT 43.2 % (34.0-46.0); HGB 13.9 gm/dL (11.4-16.0); Lymphocytes # (A) 1.2 k/uL (1.0-4.8); Lymphocytes % (A) 35 %; MCH 32.6 pg (25.0-35.0); MCHC 32.1 g/dL (31.0-37.0); MCV 101.6 fL (80.0-100.0); Macrocytosis Slight; Mean Platelet Volume 7.4; Monocytes # (A) 0.3 k/uL (0-1.0); Monocytes % (A) 9 %; Neutrophils # (A) 1.7 k/uL (1.3-7.7); Neutrophils % (A) 47 %; Platelet Count 245 k/uL (150-450); RBC 4.25 m/uL (3.80-5.40); RDW 13.9 % (11.5-15.5); WBC 3.5 k/uL (3.8-10.6)
[2023-12-11 11:46] LABS: ALT 18 U/L (4-34); AST 41 U/L (14-36); African American GFR (CKD) >90 (>60 ml/min/1.73 sqM); Albumin 4.2 g/dL (3.5-5.0); Alkaline Phosphatase 100 U/L (38-126); Anion Gap 16 mmol/L; Blood Urea Nitrogen 4 mg/dL (7-17); Carbon Dioxide 13 mmol/L (22-30); Chloride 111 mmol/L (98-107); Glucose 92 mg/dL (74-99); Lipase 102 U/L (23-300); Magnesium 1.7 mg/dL (1.6-2.3); Non-African American GFR(CKD) >90 (>60 ml/min/1.73 sqM); Potassium 3.6 mmol/L (3.5-5.1); Sodium 140 mmol/L (137-145); Total Bilirubin 0.3 mg/dL (0.2-1.3); Total Protein 6.7 g/dL (6.3-8.2)
[2023-12-11 11:49] LABS: Alcohol 228 mg/dL
[2023-12-11] MEDS ORDERED: ONDANSETRON 4 MG/2 ML VIAL IVP PRN (13:52)
[2023-12-11] MEDS ORDERED: NALOXONE 0.4 MG/ML 1 ML VIAL IV PRN (13:52)
[2023-12-11] MEDS: SODIUM CHLORIDE 0.9% 1,000 ML IV SCH (14:13)
[2023-12-11] MEDS: LORazepam 2 MG/ML INJ IV PRN (14:13)
[2023-12-11] MEDS ORDERED: ALBUTEROL NEBULIZED 2.5 MG/3 ML INHALATION PRN (19:21)
[2023-12-11] MEDS ORDERED: IPRATROPIUM-ALBUTEROL 3 ML NEB INHALATION PRN (19:22)
[2023-12-11] MEDS: cloNIDine HCL 0.1 MG TAB PO SCH (21:36)
[2023-12-12] MEDS: MORPHINE SULFATE 2 MG/ML SYRINGE IVP PRN (00:02)
[2023-12-12] MEDS: FAMOTIDINE 20 MG TAB PO SCH (08:11)
[2023-12-12] MEDS: METOPROLOL SUCCINATE (ER) 25 MG TAB.ER.24H PO SCH (08:11)
[2023-12-12] MEDS: MULTIVITAMINS, THERA 1 EACH TAB PO SCH (08:11)
[2023-12-12] MEDS: THIAMINE 100 MG TAB PO SCH (08:11)
[2023-12-12] MEDS: DULoxetine HCL 20 MG CAPSULE.DR PO SCH (08:11)
[2023-12-12] MEDS: FOLIC ACID 1 MG TAB PO SCH (08:11)
[2023-12-12] MEDS: ENOXAPARIN 40 MG/0.4 ML SYRINGE SQ SCH (08:11)
[2023-12-12 08:38] LABS: HCT 34.4 % (37.2-46.3); HGB 11.5 g/dL (12.0-15.0); MCHC 33.4 g/dL (32.0-37.0); MCV 98.6 FL (80.0-97.0); Mean Platelet Volume 9.9 FL (9.5-12.2); NRBC Per 100 WBC 0 X 10*3/uL (0.00-0.01); Platelet Count 194 X 10*3/uL (140-440); RBC 3.49 X 10*6/uL (4.10-5.20); RDW 14.6 % (11.5-14.5); WBC 3.81 X 10*3/uL (4.50-10.00)
[2023-12-12 08:39] LABS: Basophils # (A) 0.03 X 10*3/uL (0.00-0.10); Basophils % (A) 0.8 %; Eosinophils # (A) 0.24 X 10*3/uL (0.04-0.35); Eosinophils % (A) 6.3 %; Lymphocytes # (A) 1.47 X 10*3/uL (0.90-5.00); Lymphocytes % (A) 38.6 %; Monocytes # (A) 0.59 X 10*3/uL (0.20-1.00); Monocytes % (A) 15.5 %; Neutrophils # (A) 1.47 X 10*3/uL (1.80-7.70); Neutrophils % (A) 38.5 %
[2023-12-12 08:54] LABS: ALT 16 U/L (8-44); AST 34 U/L (13-35); Albumin 3.5 g/dL (3.8-4.9); Albumin/Globulin Ratio 1.94 Ratio (1.60-3.17); Alkaline Phosphatase 83 U/L (41-126); BUN/Creat Ratio <7.00 Ratio (12.00-20.00); Blood Urea Nitrogen <3.5 mg/dL (9.0-27.0); Calcium 7.9 mg/dL (8.7-10.3); Carbon Dioxide 19.6 mmol/L (21.6-31.8); Chloride 105 mmol/L (96-109); Globulin 1.8 g/dL (1.6-3.3); Glucose 93 mg/dL (70-110); Magnesium 1.3 mg/dL (1.5-2.4); Phosphorus 2.9 mg/dL (2.4-5.1); Potassium 3.2 mmol/L (3.5-5.5); Sodium 137 mmol/L (135-145); Total Bilirubin 0.4 mg/dL (0.3-1.2); Total Protein 5.3 g/dL (6.2-8.2)
[2023-12-12] MEDS ORDERED: PANTOPRAZOLE 40 MG TABLET PO SCH (09:00)
[2023-12-12] MEDS ORDERED: PANTOPRAZOLE 40 MG/10 ML VIAL IV SCH (09:00)
[2023-12-12 09:19] LABS: Glucose,Whole Blood 101 mg/dL (70-110)
[2023-12-12 11:44] LABS: Glucose,Whole Blood 105 mg/dL (70-110)
--- NOTE | 2023-12-12 12:49 | P.HPIM ---
History of Present Illness H&P Date: 12/11/23 Chief Complaint: Alcohol intoxication HISTORY OF PRESENT ILLNESS: This is a 58-year-old female who I saw about a month ago for what appears to be impending DTs and she had history of chronic alcohol use and dependence has been hospitalized multiple times at [facility] and then at [facility], after she was admitted to the hospital for audrey re hyponatremia and what appears to be impending DTs, patient has a longstanding history of chronic alcohol use and dependence, she appears to be drinking at least 1/5 of liquor on and off, apparently the patient was brought into the emergency department at [facility] today because of possible seizure activity and alcohol withdrawal after she has been intoxicated with alcohol apparently I had a long conversation with the patient last time she was admitted to the hospital, she was in disagreement as she asked for narcotics to be put on which I declined to do because of her chronic alcohol history and because of that I have sent a letter to the patient stating that I will be taking care of her for the next 30 days until she find another primary care physician since the patient does not want us to take care of her at this point in time, we will take care of the patient during this hospital stay, and then will try to help accordingly. REVIEW OF SYSTEMS: Constitutional: No documented fever, no chills, no night sweats. No weight change. No weakness, fatigue or lethargy. No daytime sleepiness. EENT: No headache. No blurred vision or double vision, no loss of vision. No loss of Hearing, no ringing in the ears, no dizziness. No nasal drainage or congestion. No epistaxis. No sore throat. Lungs: No shortness of breath, no cough, no sputum production. No wheezing. Reports dyspnea with activity. Cardiovascular: No chest pain, no lower extremity edema. positive for pal pitations. No paroxysmal nocturnal dyspnea. No orthopnea. No lightheadedness or dizziness. No syncopal episodes. Abdominal: Reports abdominal pain. No nausea, vomiting. No diarrhea. No constipation. No bloody or tarry stools reports loss of appetite. Genitourinary: No dysuria, increased frequency, urgency. No urinary retention. Musculoskeletal: positive for myalgias. No muscle weakness, no gait dysfunction, no frequent falls. positive for back pain. positive for neck pain. Integumentary: No wounds, no lesions. No rash or pruritus. No unusual bruising. No change in hair or nails. Neurologic: No aphasia. No facial droop. No change in mentation. No head injury. No headache. No paralysis. No paresthesia. Psychiatric: positive for depression. positive for anxiety. No mood swings. Endocrine: No abnormal blood sugars. No weight change. PAST MEDICAL HISTORY: Hypertension and hypertensive cardiovascular disease. Hyponatremia. Fibromyalgia. Moderate COPD. Chronic tobacco use and dependence. Chronic alcohol use and dependence. Osteoarthritis. Spondylosis of the cervical spine. Spondylosis of the lumbar spine. PAST SURGICAL HISTORY: Left hip ORIF 2016 Appendectomy. Partial hysterectomy Jaw surgery Colonoscopy 2013 SOCIAL HISTORY: Patient smoked a pack every day since she was 15-year-old, and she stated that she quit about 2-month ago she continues to smoke on and off, she drinks quite a bit of alcohol, beer and sometimes she drinks 1/5 of liquor on and off, she has issue with alcohol and she has been in the hospital for DTs in the past. No seizure, she does use marijuana, she denies any other drug use or abuse. FAMILY HISTORY: Father at age of 77 from [place], mother at age of 50 from lung cancer with mets to the bone, patient had 3 brothers 1 at age of 26 from motor vehicle accident 2 are okay, patient had 2 sisters 1 at the age of 64 from colon cancer the other 1 is okay, patient has 2 daughters alive and well. PHYSICAL EXAMINATION: General: 58-year-old female sitting up in bed HEENT: Head is atraumatic, normocephalic, pupils were equal round reactive to light and recommendation, extraocular muscle movement were intact, sclera nonicteric, conjunctivae were pale, mucous membranes of the mouth are somewhat dry. Neck: Supple, no JVP, normal carotid upstroke bilaterally, no lymphadenopathy. Chest: Decreased breath sounds at the bases, few rhonchi, positive for expiratory wheezes, no chest wall tenderness, no intercostal retractions. Heart: First heart sound is normal, second heart sound is normal there is no gallop or murmur. Abdomen: Soft, nontender, nondistended, positive bowel sounds. Extremities: There is no edema no calf tenderness DP +2 bilaterally. Neurologic examination: Patient is awake alert and oriented x3, cranial nerves II-12 appear grossly intact, muscle power were 5 out of 5 in upper extremities and 5 out of 5 in bilateral lower extremities, deep tendon reflexes normal bilaterally, tremors is better. ASSESSMENT AND PLAN: 1. Impending DTs. Patient was counseled about abstinence from alcohol, she was started on banana bag, she was placed on CIWA protocol, she was placed on thi amine 100 mg once every day, folic acid 1 mg once every day multivitamin once every day, she was started on clonidine 0.1 mg orally twice every day, metoprolol ER 25 mg once every day, she will be monitored in the hospital very closely. 2. Chronic obstructive pulmonary disease. Continue patient on oxygen support, continue DuoNeb 3 mm nebulization 4 times every day, monitor the patient very closely. 3. Hypertension and hypertensive cardiovascular disease. Continue clonidine 0.1 mg twice every day, continue patient on metoprolol ER 25 mg at bedtime. 4. Mixed hyperlipidemia, will check her lipid panel as an outpatient. 5. History of hyponatremia. Her sodium is back to normal. 6. History of fibromyalgia with chronic pain syndrome. Start the patient on duloxetine 20 mg orally once every day we will continue with that patient is not a good candidate for narcotics. 7. Chronic tobacco use and dependence patient has been without cigarettes for the last 2 months. Continue with abstinence from nicotine products. 8. THC use. Counseled against its use. 9. Anxiety and depressive disorder. Continue duloxetine 20 mg once every day, may need to add a small dose of naltrexone 50 mg orally once every day as an outpatient. 10. Chronic alcohol use and dependence. The patient was counseled about abstinence from alcohol, increase fluid intake, start the patient on duloxetine 20 mg once every day. 11. 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 12. family history of colon cancer patient will need to have a colonoscopy since her last colonoscopy was more than 10 years ago. She should have that every 5 years 13. DVT prophylaxis. Lovenox 40 mg subcutaneously every 24 hours. 14. GI prophylaxis. Continue Protonix 40 mg orally once every day. 15. Admit to inpatient. Estimated length of stay 2 midnights. 16. Patient is full code. 17. vegetable farmworker consultation for discharge planning. Past Medical History Past Medical History: Diabetes Mellitus Additional Past Medical History / Comment(s): back pain, migraines, fibromyalgianh, history of seizures when withdrawling from "tramadol" or another medicaiton "years ago" per 10/19/23 History of Any Multi-Drug Resistant Organisms: None Reported Past Surgical History: Orthopedic Surgery Past Psychological History: Anxiety, Depression Smoking Status: Current every day smoker Past Alcohol Use History: Daily Past Drug Use History: Cocaine, Marijuana Medications and Allergies Home Medications Medication Instructions Recorded Confirmed Type Ondansetron Odt [Zofran ODT] 4 mg PO Q12H PRN 10/20/23 12/11/23 History Folic Acid 1 mg PO DAILY #30 tab 10/23/23 12/11/23 Rx Thiamine [Vitamin B-1] 100 mg PO DAILY #30 tab 10/23/23 12/11/23 Rx Pantoprazole [Protonix] 40 mg PO DAILY 11/17/23 12/11/23 History DULoxetine HCL [Cymbalta] 20 mg PO DAILY #30 cap 11/20/23 12/11/23 Rx Famotidine [Pepcid] 20 mg PO DAILY tab 11/20/23 12/11/23 Rx Metoprolol Succinate (ER) [Toprol 25 mg PO DAILY #30 tab 11/20/23 12/11/23 Rx XL] cloNIDine HCL [Catapres] 0.1 mg PO BID #60 tab 11/20/23 12/11/23 Rx Albuterol Inhaler [Ventolin Hfa 1 puff INHALATION RT-QID PRN 12/11/23 12/11/23 History Inhaler] Multivitamins, Thera [Multivitamin 1 tab PO DAILY 12/11/23 12/11/23 History (formulary)] predniSONE See Taper PO DIRECTED 12/11/23 12/11/23 History Allergies Allergy/AdvReac Type Severity Reaction Status Date / Time No Known Allergies Allergy Verified 12/11/23 14:08 Physical Exam Vitals: Vital Signs Temp Pulse Resp BP Pulse Ox 12/11/23 19:02 99.8 F H 106 H 18 142/91 96 12/11/23 18:15 99.8 F H 105 H 20 154/93 97 12/11/23 17:05 98.7 F 105 H 22 164/107 96 12/11/23 16:03 93 18 139/89 94 L 12/11/23 15:15 88 18 121/80 94 L 12/11/23 14:10 98.5 F 92 22 143/99 95 12/11/23 13:05 90 20 136/87 95 12/11/23 11:55 98.4 F 87 19 140/94 96 12/11/23 10:56 98.1 F 90 26 H 147/98 93 L Intake and Output 12/11/23 12/11/23 12/11/23 06:59 14:59 22:59 Other: Weight 61.235 kg Results CBC & Chem 7: 12/11/23 11:21 12/11/23 11:21 Labs: Abnormal Lab Results - Last 24 Hours (Table) 12/11/23 12/11/23 Range/Units 11:21 11:21 WBC 3.5 L (3.8-10.6) k/uL MCV 101.6 H (80.0-100.0) fL Chloride 111 H (98-107) mmol/L Carbon Dioxide 13 L (22-30) mmol/L BUN 4 L (7-17) mg/dL Creatinine 0.50 L (0.52-1.04) mg/dL AST 41 H (14-36) U/L Serum Alcohol 228 H* mg/dL
[2023-12-12] MEDS: POTASSIUM CHLORIDE ER 20 MEQ TAB.ER PO STA (13:11)
[2023-12-12 16:27] LABS: Glucose,Whole Blood 104 mg/dL (70-110)
--- NOTE | 2023-12-12 19:04 | P.PN ---
Subjective Progress Note Date: 12/12/23 HISTORY OF PRESENT ILLNESS: This is a 58-year-old female who I saw about a month ago for what a ppears to be impending DTs and she had history of chronic alcohol use and dependence has been hospitalized multiple times at [facility] and then at [facility], after she was admitted to the hospital for severe hyponatremia and what appears to be impending DTs, patient has a l ongstanding history of chronic alcohol use and dependence, she appears to be drinking at least 1/5 of liquor on and off, apparently the patient was brought into the emergency department at [facility] today because of possible seizure activity and alcohol withdrawal after she has been intoxicated with alcohol apparently I had a long conversation with the patient last time she was admitted to the hospital, she was in disagreement as she asked for narcotics to be put on which I declined to do because of her chronic alcohol history and because of that I have sent a letter to the patient stating that I will be taking care of her for the next 30 days until she find another primary care kirstin rahman since the patient does not want us to take care of her at this point in time, we will take care of the patient during this hospital stay, and then will try to help accordingly. 12/11: Patient is laying down in bed in no apparent distress, she is feeling better today since she was started on morphine for pain control, she denies any abdominal pain, nausea vomiting or diarrhea, patient is tolerating her diet very well, will Hep-Lock her IV, keep the patient for another 24 hours, she can be d ischarged home in the next 24 hours. REVIEW OF SYSTEMS: Constitutional: No documented fever, no chills, no night sweats. No weight change. No weakness, fatigue or lethargy. No daytime sleepiness. EENT: No headache. No blurred vision or double vision, no loss of vision. No loss of Hearing, no ringing in the ears, no dizziness. No nasal drainage or congestion. No epistaxis. No sore throat. Lungs: No shortness of breath, no cough, no sputum production. No wheezing. Reports dyspnea with activity. Cardiovascular: No chest pain, no lower extremity edema. positive for palpitations. No paroxysmal nocturnal dyspnea. No orthopnea. No lightheadedness or dizziness. No syncopal episodes. Abdominal: Reports abdominal pain. No nausea, vomiting. No diarrhea. No constipation. No bloody or tarry stools reports loss of appetite. Genitourinary: No dysuria, increased frequency, urgency. No urinary retention. Musculoskeletal: positive for myalgias. No muscle weakness, no gait dysfunc tion, no frequent falls. positive for back pain. positive for neck pain. Integumentary: No wounds, no lesions. No rash or pruritus. No unusual bruising. No change in hair or nails. Neurologic: No aphasia. No facial droop. No change in mentation. No head injury. No headache. No paralysis. No paresthesia. Psychiatric: positive for depression. positive for anxiety. No mood swings. Endocrine: No abnormal blood sugars. No weight change. PHYSICAL EXAMINATION: General: 58-year-old female sitting up in bed HEENT: Head is atraumatic, normocephalic, pupils were equal round reactive to light and recommendation, extraocular muscle movement were intact, sclera nonicteric, conjunctivae were pale, mucous membranes of the mouth are somewhat dry. Neck: Supple, no JVP, normal carotid upstroke bilaterally, no lymphadenopathy. Chest: Decreased breath sounds at the bases, few rhonchi, positive for expiratory wheezes, no chest wall tenderness, no intercostal retractions. Heart: First heart sound is normal, second heart sound is normal there is no gallop or murmur. Abdomen: Soft, nontender, nondistended, positive bowel sounds. Extremities: There is no edema no calf tenderness DP +2 bilaterally. Neurologic examination: Patient is awake alert and oriented x3, cranial nerves II-12 appear grossly intact, muscle power were 5 out of 5 in upper extremities and 5 out of 5 in bilateral lower extremities, deep tendon reflexes normal bilaterally, tremors is better. ASSESSMENT AND PLAN: 1. Impending DTs. Resolved. Patient was was placed on CIWA protocol, she was placed on thiamine 100 mg once every day, folic acid 1 mg once every day multivitamin once every day, she was started on clonidine 0.1 mg orally twice every day, metoprolol ER 25 mg once every day, she will be monitored in the hospital very closely. 2. Chronic obstructive pulmonary disease. Continue patient on oxygen support, continue DuoNeb 3 mm nebulization 4 times every day, monitor the patient very closely. 3. Hypertension and hypertensive cardiovascular disease. Continue clonidine 0.1 mg twice every day, continue patient on metoprolol ER 25 mg at bedtime. 4. Mixed hyperlipidemia, will check her lipid panel as an outpatient. 5. History of hyponatremia. Her sodium is back to normal. 6. History of fibromyalgia with chronic pain syndrome. Start the patient on duloxetine 20 mg orally once every day, started the patient on a small dose of morphine 2 mg IV push every 4 hours as needed while she is in the hospital. No narcotics as an outpatient. 7. Chronic tobacco use and dependence patient has been without cigarettes for the last 2 months. Continue with abstinence from nicotine products. 8. THC use. Counseled against its use. 9. Anxiety and depressive disorder. Continue duloxetine 20 mg once every day, may need to add a small dose of naltrexone 50 mg orally once every day as an outpatient. 10. Chronic alcohol use and dependence. The patient was counseled about abstin ence from alcohol, increase fluid intake, start the patient on duloxetine 20 mg once every day. 11. 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 12. family history of colon cancer patient will need to have a colonoscopy since her last colonoscopy was more than 10 years ago. She should have that every 5 years 13. DVT prophylaxis. Lovenox 40 mg subcutaneously every 24 hours. 14. GI prophylaxis. Continue Protonix 40 mg orally once every day. 15. Home tomorrow morning. Objective - Vital Signs Vital signs: Vital Signs Temp 98.4 F 12/12/23 07:31 Pulse 89 12/12/23 07:31 Resp 18 12/12/23 08:00 BP 130/84 12/12/23 07:31 Pulse Ox 95 12/12/23 07:31 FiO2 Intake & Output 12/11/23 12/12/23 12/12/23 18:59 06:59 18:59 Intake Total 240 Balance 240 Weight 61.235 kg 61.235 kg Intake: Oral 240 Other: Voiding Method Diaper Diaper # Voids 1 - Labs CBC & Chem 7: 12/12/23 03:10 12/12/23 03:10 Labs: Abnormal Lab Results - Last 24 Hours (Table) 12/12/23 12/12/23 Range/Units 03:10 03:10 WBC 3.81 L (4.50-10.00) X 10*3/uL RBC 3.49 L (4.10-5.20) X 10*6/uL Hgb 11.5 L (12.0-15.0) g/dL Hct 34.4 L (37.2-46.3) % MCV 98.6 H (80.0-97.0) FL MCH 33.0 H (27.0-32.0) pg RDW 14.6 H (11.5-14.5) % Neutrophils # 1.47 L (1.80-7.70) X 10*3/uL Potassium 3.2 L (3.5-5.5) mmol/L Carbon Dioxide 19.6 L (21.6-31.8) mmol/L Anion Gap 12.40 H (4.00-12.00) mmol/L BUN <3.5 L (9.0-27.0) mg/dL Creatinine 0.5 L (0.6-1.5) mg/dL BUN/Creatinine Ratio <7.00 L (12.00-20.00) Ratio Calcium 7.9 L (8.7-10.3) mg/dL Magnesium 1.3 L (1.5-2.4) mg/dL Total Protein 5.3 L (6.2-8.2) g/dL Albumin 3.5 L (3.8-4.9) g/dL
[2023-12-12] MEDS: LORazepam 0.5 MG TAB PO PRN (20:23)
[2023-12-12 21:12] LABS: Glucose,Whole Blood 96 mg/dL (70-110)
[2023-12-13 06:10] LABS: Glucose,Whole Blood 91 mg/dL (70-110)
[2023-12-13 08:49] LABS: Basophils # (A) 0.03 X 10*3/uL (0.00-0.10); Basophils % (A) 0.9 %; Eosinophils # (A) 0.32 X 10*3/uL (0.04-0.35); Eosinophils % (A) 9.6 %; HCT 36.1 % (37.2-46.3); HGB 12.1 g/dL (12.0-15.0); Lymphocytes # (A) 1.44 X 10*3/uL (0.90-5.00); Lymphocytes % (A) 43.4 %; MCH 33.4 pg (27.0-32.0); MCHC 33.5 g/dL (32.0-37.0); MCV 99.7 FL (80.0-97.0); Mean Platelet Volume 10.3 FL (9.5-12.2); Monocytes # (A) 0.52 X 10*3/uL (0.20-1.00); Monocytes % (A) 15.7 %; NRBC Per 100 WBC 0 X 10*3/uL (0.00-0.01); Neutrophils % (A) 30.1 %; Platelet Count 194 X 10*3/uL (140-440); RBC 3.62 X 10*6/uL (4.10-5.20); RDW 14.5 % (11.5-14.5); WBC 3.32 X 10*3/uL (4.50-10.00)
[2023-12-13 09:05] LABS: ALT 15 U/L (8-44); AST 29 U/L (13-35); Albumin 3.6 g/dL (3.8-4.9); Albumin/Globulin Ratio 2.12 Ratio (1.60-3.17); Alkaline Phosphatase 91 U/L (41-126); BUN/Creat Ratio <5.83 Ratio (12.00-20.00); Blood Urea Nitrogen <3.5 mg/dL (9.0-27.0); Calcium 8.6 mg/dL (8.7-10.3); Carbon Dioxide 20.9 mmol/L (21.6-31.8); Chloride 107 mmol/L (96-109); Globulin 1.7 g/dL (1.6-3.3); Glucose 95 mg/dL (70-110); Magnesium 1.5 mg/dL (1.5-2.4); Potassium 3.9 mmol/L (3.5-5.5); Sodium 137 mmol/L (135-145); Total Bilirubin 0.5 mg/dL (0.3-1.2); Total Protein 5.3 g/dL (6.2-8.2)
[2023-12-13 11:50] LABS: Glucose,Whole Blood 107 mg/dL (70-110)
[2023-12-13 14:29] VITALS: BP 113/64; PULSE 57; RESP 16; TEMP 97.4
== END 2023-12-13 16:58 | disposition home or self-care (01) ==
LOC: EC 10:53 → 4SSUR 13:53
PROVIDERS: ADMIT Internal Medicine; ATTEND Internal Medicine
DX: F10.231 Alcohol dependence with withdrawal delirium (principal); F10.229 Alcohol dependence with intoxication, unspecified; Y90.7 Blood alcohol level of 200-239 mg/100 ml; G40.909 Epilepsy, unspecified, not intractable, without status epilepticus; E11.9 Type 2 diabetes mellitus without complications; F41.9 Anxiety disorder, unspecified; F32.A Depression, unspecified; I11.9 Hypertensive heart disease without heart failure; E87.1 Hypo-osmolality and hyponatremia; M79.7 Fibromyalgia; J44.9 Chronic obstructive pulmonary disease, unspecified; E78.2 Mixed hyperlipidemia; G89.4 Chronic pain syndrome; F12.90 Cannabis use, unspecified, uncomplicated; M47.812 Spondylosis without myelopathy or radiculopathy, cervical region; M47.816 Spondylosis without myelopathy or radiculopathy, lumbar region; F17.200 Nicotine dependence, unspecified, uncomplicated; Z79.899 Other long term (current) drug therapy; Z80.0 Family history of malignant neoplasm of digestive organs
CPT/HCPCS: 96376 ×4; 96361 ×2; 96372 ×2; 96375; 96374; 99285; 36415; 80053 ×3; 83690; 83735 ×3; 84100 ×2; 85025 ×3; G0378 ×3; G0480; J2060 ×2; J1650 ×2; J2270 ×2; 80320

== ENCOUNTER 2024-04-21 08:00 | Emergency (ER) | payer OTHER ==
[2024-04-21 08:11] VITALS: TEMP 98
--- NOTE | 2024-04-21 08:13 | ED ---
General Adult HPI - General Stated complaint: seizure/ABD pain Time Seen by Provider: 04/21/24 08:00 Source: patient, RN notes reviewed, old records reviewed - History of Present Illness Initial comments: This is a 58-year-old female with a past medical history significant for anxiety and depression. Patient comes in today stating she was having diarrhea and vomiting the last 2 days. Patient states she did drink 2 beers yesterday. Patient states she used to be addicted to basically any pill she can get her hands on. Patient states she gets super anxious when she is sick like this and starts to shake and her think she is having a seizure but she is conscious the whole time. Patient denies being on any medications currently. Patient denies any fever chills. Patient denies any chest pain difficulty breathing shortness of breath. Patient states when she had diarrhea she has some abdominal cramping but she has no pain currently. Patient was given Zofran and route to the hospital. Patient states she took 3 Gummies this morning - Related Data Home Medications Medication Instructions Recorded Confirmed Ondansetron Odt [Zofran ODT] 4 mg PO Q12H PRN 10/20/23 12/11/23 Pantoprazole [Protonix] 40 mg PO DAILY 11/17/23 12/11/23 Albuterol Inhaler [Ventolin Hfa 1 puff INHALATION RT-QID PRN 12/11/23 12/11/23 Inhaler] Multivitamins, Thera [Multivitamin 1 tab PO DAILY 12/11/23 12/11/23 (formulary)] predniSONE See Taper PO DIRECTED 12/11/23 12/11/23 Previous Rx's Medication Instructions Recorded Folic Acid 1 mg PO DAILY #30 tab 10/23/23 Thiamine [Vitamin B-1] 100 mg PO DAILY #30 tab 10/23/23 DULoxetine HCL [Cymbalta] 20 mg PO DAILY #30 cap 11/20/23 Famotidine [Pepcid] 20 mg PO DAILY tab 11/20/23 Metoprolol Succinate (ER) [Toprol 25 mg PO DAILY #30 tab 11/20/23 XL] cloNIDine HCL [Catapres] 0.1 mg PO BID #60 tab 11/20/23 Allergies Allergy/AdvReac Type Severity Reaction Status Date / Time No Known Allergies Allergy Verified 12/11/23 14:08 Review of Systems ROS Statement: Those systems with pertinent positive or pertinent negative responses have been documented in the HPI. ROS Other: All systems not noted in ROS Statement are negative. Past Medical History Past Medical History: Diabetes Mellitus Additional Past Medical History / Comment(s): back pain, migraines, fibromyalgianh, history of seizures when withdrawling from "tramadol" or another medicaiton "years ago" per 10/19/23 History of Any Multi-Drug Resistant Organisms: None Reported Past Surgical History: Orthopedic Surgery Past Psychological History: Anxiety, Depression Smoking Status: Current every day smoker Past Alcohol Use History: Daily Past Drug Use History: Cocaine, Marijuana General Exam - General Exam Comments Initial Comments: GENERAL: Patient is well-developed and well-nourished. Patient is nontoxic and well- hydrated and is in mild distress. ENT: Neck is soft and supple. No significant lymphadenopathy is noted. Oropharynx is clear. Moist mucous membranes. Neck has full range of motion without eliciting any pain. EYES: The sclera were anicteric and conjunctiva were pink and moist. Extraocular movements were intact and pupils were equal round and reactive to light. Eyelids were unremarkable. PULMONARY: Unlabored respirations. Good breath sounds bilaterally. No audible rales rhonchi or wheezing was noted. CARDIOVASCULAR: There is a regular rate and rhythm without any murmurs gallops or rubs. ABDOMEN: Soft and nontender with normal bowel sounds. SKIN: Skin is clear with no lesions or rashes and otherwise unremarkable. NEUROLOGIC: Patient is alert and oriented x3. Cranial nerves II through XII are grossly intact. Motor and sensory are also intact. Normal speech, volume and content. Symmetrical smile. MUSCULOSKELETAL: Normal extremities with adequate strength and full range of motion. LYMPHATICS: No significant lymphadenopathy is noted PSYCHIATRIC: Patient is initially hyperventilating but talking to her she became more calm Course Vital Signs 04/21/24 04/21/24 04/21/24 08:02 08:15 09:32 Temperature 98.0 F 98.0 F Pulse Rate 95 95 111 H Respiratory 22 22 18 Rate Blood Pressure 118/88 118/88 114/89 O2 Sat by Pulse 96 96 96 Oximetry Medical Decision Making - Medical Decision Making Was pt. sent in by a medical professional or institution (, PA, STAFF REGISTERED NURSE, urgent care, hospital, or [facility]...) When possible be specific @ -No Did you speak to anyone other than the patient for history (EMS, parent, family, police, friend...)? What history was obtained from this source @ -No Did you review nursing and triage notes (agree or disagree)? Why? @ -I reviewed and agree with nursing and triage notes Were old charts reviewed (outside hosp., previous admission, EMS record, old EKG, old radiological studies, urgent care reports/EKG's, [facility] records)? Report findings @ -No old charts were reviewed Differential Diagnosis? @ -MDM differential abdominal pain EKG interpreted by me (3pts min.). @ -As above X-rays interpreted by me (1pt min.). @ -None done CT interpreted by me (1pt min.). @ -None done U/S interpreted by me (1pt. min.). @ -None done What testing was considered but not performed or refused? (CT, X-rays, U/S, labs)? Why? @ -None What meds were considered but not given or refused? Why? @ -None Did you discuss the management of the patient with other professionals (professionals i.e. , PA, STAFF REGISTERED NURSE, lab, RT, psych nurse, elementary school social worker, public events facilities rental manager, teacher, community reinvestment act officer, classification case manager)? Give summary @ -No Was smoking cessation discussed for >3mins.? @ -No Was critical care preformed (if so, how long)? @ -No Were there social determinants of health that impacted care today? How? (Homelessness, low income, unemployed, alcoholism, drug addiction, transportation, low edu. Level, literacy, decrease access to med. care, [facility], rehab)? @ -No Was there de-escalation of care discussed even if they declined (Discuss DNR or withdrawal of care, Hospice)? DNR status @ -No What co-morbidities impacted this encounter? (DM, HTN, Smoking, COPD, CAD, Cancer, CVA, ARF, Chemo, Hep., AIDS, mental health diagnosis, sleep apnea, morbid obesity)? @ -None Was patient admitted / discharged? Hospital course, mention meds given and route, prescriptions, significant lab abnormalities, going to OR and other pertinent info. @ -Patient was given Zofran fluids and Ativan I went back into reevaluate the patient after she received the she was feeling considerably better and agreed that it is mostly her anxiety that is causing the problems that she no longer has any abdominal pain Undiagnosed new problem with uncertain prognosis? @ -No Drug Therapy requiring intensive monitoring for toxicity (Heparin, Nitro, Insulin, Cardizem)? @ -No Were any procedures done? @ -No Diagnosis/symptom? @ -Anxiety Acute, or Chronic, or Acute on Chronic? @ -acute Uncomplicated (without systemic symptoms) or Complicated (systemic symptoms)? @ -Complicate Side effects of treatment? @ -No Exacerbation, Progression, or Severe Exacerbation? @ -No Poses a threat to life or bodily function? How? (Chest pain, USA, [place], pneumonia, PE, COPD, DKA, ARF, appy, cholecystitis, CVA, Diverticulitis, Homicidal, Suicidal, threat to staff... and all critical care pts) @ -No - Lab Data Result diagrams: 04/21/24 08:17 04/21/24 08:17 Lab Results 04/21/24 04/21/24 04/21/24 Range/Units 08:17 08:17 08:17 WBC 4.6 (3.8-10.6) k/uL RBC 5.69 H (3.80-5.40) m/uL Hgb 17.9 H (11.4-16.0) gm/dL Hct 55.1 H (34.0-46.0) % MCV 96.8 (80.0-100.0) fL MCH 31.4 (25.0-35.0) pg MCHC 32.4 (31.0-37.0) g/dL RDW 13.3 (11.5-15.5) % Plt Count 203 (150-450) k/uL MPV 8.8 Neutrophils % 76 % Lymphocytes % 14 % Monocytes % 6 % Eosinophils % 3 % Basophils % 1 % Neutrophils # 3.4 (1.3-7.7) k/uL Lymphocytes # 0.6 L (1.0-4.8) k/uL Monocytes # 0.3 (0-1.0) k/uL Eosinophils # 0.1 (0-0.7) k/uL Basophils # 0.0 (0-0.2) k/uL Sodium 137 (137-145) mmol/L Potassium 3.4 L (3.5-5.1) mmol/L Chloride 109 H (98-107) mmol/L Carbon Dioxide 14 L (22-30) mmol/L Anion Gap 14 mmol/L BUN 7 (7-17) mg/dL Creatinine 0.92 (0.52-1.04) mg/dL Est GFR (CKD-EPI)AfAm 79 (>60 ml/min/1.73 sqM) Est GFR (CKD-EPI)NonAf 68 (>60 ml/min/1.73 sqM) Glucose 131 H (74-99) mg/dL Calcium 10.3 H (8.4-10.2) mg/dL Total Bilirubin 0.7 (0.2-1.3) mg/dL AST 38 H (14-36) U/L ALT 27 (4-34) U/L Alkaline Phosphatase 126 (38-126) U/L Total Protein 8.5 H (6.3-8.2) g/dL Albumin 5.2 H (3.5-5.0) g/dL Amylase 55 (30-110) U/L Lipase 49 (23-300) U/L Urine Opiates Screen Not Detected (NotDetected) Ur Oxycodone Screen Not Detected (NotDetected) Urine Methadone Screen Not Detected (NotDetected) Ur Barbiturates Screen Not Detected (NotDetected) U Tricyclic Antidepress Not Detected (NotDetected) Ur Phencyclidine Scrn Not Detected (NotDetected) Ur Amphetamines Screen Not Detected (NotDetected) U Methamphetamines Scrn Not Detected (NotDetected) U Benzodiazepines Scrn Not Detected (NotDetected) Urine Cocaine Screen Not Detected (NotDetected) U Marijuana (THC) Screen Detected H (NotDetected) Serum Alcohol <10 mg/dL Disposition Clinical Impression: Acute anxiety Disposition: HOME SELF-CARE Condition: Good Instructions (If sedation given, give patient instructions): Generalized Anxiety Disorder (ED) Is patient prescribed a controlled substance at d/c from ED?: No Referrals: Dianne Lyman MD [Primary Care Provider] - 1-2 days Time of Disposition: 09:49
[2024-04-21] MEDS: SODIUM CHLORIDE 0.9% 1,000 ML IV STA (08:32)
[2024-04-21] MEDS: LORazepam 2 MG/ML INJ IV STA (08:34)
[2024-04-21 08:54] LABS: ALT 27 U/L (4-34); AST 38 U/L (14-36); African American GFR (CKD) 79 (>60 ml/min/1.73 sqM); Albumin 5.2 g/dL (3.5-5.0); Alcohol <10 mg/dL; Alkaline Phosphatase 126 U/L (38-126); Amylase 55 U/L (30-110); Anion Gap 14 mmol/L; Basophils % (A) 1 %; Blood Urea Nitrogen 7 mg/dL (7-17); Calcium 10.3 mg/dL (8.4-10.2); Carbon Dioxide 14 mmol/L (22-30); Chloride 109 mmol/L (98-107); Eosinophils # (A) 0.1 k/uL (0-0.7); Eosinophils % (A) 3 %; Glucose 131 mg/dL (74-99); HGB 17.9 gm/dL (11.4-16.0); Lipase 49 U/L (23-300); Lymphocytes # (A) 0.6 k/uL (1.0-4.8); Lymphocytes % (A) 14 %; MCH 31.4 pg (25.0-35.0); MCHC 32.4 g/dL (31.0-37.0); MCV 96.8 fL (80.0-100.0); Mean Platelet Volume 8.8; Monocytes # (A) 0.3 k/uL (0-1.0); Monocytes % (A) 6 %; Neutrophils # (A) 3.4 k/uL (1.3-7.7); Neutrophils % (A) 76 %; Non-African American GFR(CKD) 68 (>60 ml/min/1.73 sqM); Platelet Count 203 k/uL (150-450); Potassium 3.4 mmol/L (3.5-5.1); RBC 5.69 m/uL (3.80-5.40); RDW 13.3 % (11.5-15.5); Sodium 137 mmol/L (137-145); Total Bilirubin 0.7 mg/dL (0.2-1.3); Total Protein 8.5 g/dL (6.3-8.2); WBC 4.6 k/uL (3.8-10.6)
[2024-04-21 08:59] LABS: HCT 55.1 % (34.0-46.0)
[2024-04-21 09:17] LABS: Amphetamine Screen,Urine Not Detected (NotDetected); Barbiturate Screen,Urine Not Detected (NotDetected); Benzodiazepines Screen,Urine Not Detected (NotDetected); Cocaine Screen,Urine Not Detected (NotDetected); Methadone Screen, Urine Not Detected (NotDetected); Opiate Screen,Urine Not Detected (NotDetected); Oxycodone Screen, Urine Not Detected (NotDetected); Phencyclidine Screen,Urine Not Detected (NotDetected); Tricyclic Antidepressant,Urine Not Detected (NotDetected); Urn Cannabinoid Scrn Detected (NotDetected)
[2024-04-21 09:34] VITALS: RESP 18
[2024-04-21] MEDS: ONDANSETRON 4 MG ODT STARTER PACK 2 TAB BTL PO STA (10:07)
[2024-04-21 10:09] VITALS: BP 104/88; PULSE 120
== END 2024-04-21 10:18 | disposition home or self-care (01) ==
LOC: EC 08:00
DX: F41.9 Anxiety disorder, unspecified (principal); F17.200 Nicotine dependence, unspecified, uncomplicated
CPT/HCPCS: 36415; 80053; 82150; 83690; 85025; 80306; 99284; 96374; 96361; G0480; J2060; S0119; 80320

== ENCOUNTER 2024-04-27 16:29 | Inpatient (IN) | payer OTHER ==
--- NOTE | 2024-04-27 16:43 | ED ---
General Adult HPI - General Stated complaint: ETOH, Mental Health Time Seen by Provider: 04/27/24 16:29 Source: patient, EMS, RN notes reviewed, old records reviewed - History of Present Illness Initial comments: Is a 58-year-old female who comes to the ER with EMS most of the history is from EMS. EMS states that the called because at home she was stating she was having abdominal pain and she was curled up in a position he did not know what to do. Patient herself denies any abdominal pain but she does states she is considering killing himself. Patient states she did have a couple shots of alcohol today but she denies any drug use. Patient is extremely hyperverbal but does not answer all my questions. Patient denies any headache patient has chest pain difficulty breathing. Patient has abdominal pain patient has nausea vomiting diarrhea - Related Data Home Medications Medication Instructions Recorded Confirmed Ondansetron Odt [Zofran ODT] 4 mg PO Q12H PRN 10/20/23 12/11/23 Pantoprazole [Protonix] 40 mg PO DAILY 11/17/23 12/11/23 Albuterol Inhaler [Ventolin Hfa 1 puff INHALATION RT-QID PRN 12/11/23 12/11/23 Inhaler] Multivitamins, Thera [Multivitamin 1 tab PO DAILY 12/11/23 12/11/23 (formulary)] predniSONE See Taper PO DIRECTED 12/11/23 12/11/23 Previous Rx's Medication Instructions Recorded Folic Acid 1 mg PO DAILY #30 tab 10/23/23 Thiamine [Vitamin B-1] 100 mg PO DAILY #30 tab 10/23/23 DULoxetine HCL [Cymbalta] 20 mg PO DAILY #30 cap 11/20/23 Famotidine [Pepcid] 20 mg PO DAILY tab 11/20/23 Metoprolol Succinate (ER) [Toprol 25 mg PO DAILY #30 tab 11/20/23 XL] cloNIDine HCL [Catapres] 0.1 mg PO BID #60 tab 11/20/23 Allergies Allergy/AdvReac Type Severity Reaction Status Date / Time No Known Allergies Allergy Verified 12/11/23 14:08 Review of Systems ROS Statement: Those systems with pertinent positive or pertinent negative responses have been documented in the HPI. ROS Other: All systems not noted in ROS Statement are negative. Past Medical History Past Medical History: Diabetes Mellitus Additional Past Medical History / Comment(s): back pain, migraines, fibromyalgianh, history of seizures when withdrawling from "tramadol" or another medicaiton "years ago" per 10/19/23 History of Any Multi-Drug Resistant Organisms: None Reported Past Surgical History: Orthopedic Surgery Past Psychological History: Anxiety, Depression Smoking Status: Current every day smoker Past Alcohol Use History: Daily Past Drug Use History: Cocaine, Marijuana General Exam - General Exam Comments Initial Comments: GENERAL: Patient is well-developed and well-nourished. Patient is nontoxic and well- hydrated and is in no acute distress. Very agitated ENT: Neck is soft and supple. No significant lymphadenopathy is noted. Oropharynx is clear. Moist mucous membranes. Neck has full range of motion without eliciting any pain. EYES: The sclera were anicteric and conjunctiva were pink and moist. Extraocular movements were intact and pupils were equal round and reactive to light. Eyelid s were unremarkable. PULMONARY: Unlabored respirations. Good breath sounds bilaterally. No audible rales rhonchi or wheezing was noted. CARDIOVASCULAR: There is a regular rate and rhythm without any murmurs gallops or rubs. ABDOMEN: Soft and nontender with normal bowel sounds. SKIN: Skin is clear with no lesions or rashes and otherwise unremarkable. NEUROLOGIC: Patient is alert and oriented x3. Cranial nerves II through XII are grossly intact. Motor and sensory are also intact. Normal speech, volume and content. Symmetrical smile. MUSCULOSKELETAL: Normal extremities with adequate strength and full range of motion. LYMPHATICS: No significant lymphadenopathy is noted PSYCHIATRIC: Agitated and hyperverbal. Patient is somewhat uncooperative and she does states she is suicidal Course Vital Signs 04/27/24 16:35 Temperature 98.5 F Pulse Rate 143 H Respiratory 20 Rate Blood Pressure 113/55 O2 Sat by Pulse 98 Oximetry Medical Decision Making - Medical Decision Making Was pt. sent in by a medical professional or institution (, PA, WATER SUPERVISOR, urgent care, hospital, or halfway...) When possible be specific @ -No Did you speak to anyone other than the patient for history (EMS, parent, family, police, friend...)? What history was obtained from this source @ -No Did you review nursing and triage notes (agree or disagree)? Why? @ -I reviewed and agree with nursing and triage notes Were old charts reviewed (outside hosp., previous admission, EMS record, old EKG, old radiological studies, urgent care reports/EKG's, halfway records)? Report findings @ -No old charts were reviewed Differential Diagnosis? @ -Alcohol intoxication, acute psychosis, suicidal, alcohol withdrawal, this is not an all-inclusive list EKG interpreted by me (3pts min.). @ -As above X-rays interpreted by me (1pt min.). @ -X-ray shows no acute abnormality CT interpreted by me (1pt min.). @ -CT of the brain shows no acute abnormality shortness of breath she is COVID- positive CT U/S interpreted by me (1pt. min.). @ -None done What testing was considered but not performed or refused? (CT, X-rays, U/S, labs)? Why? @ -None What meds were considered but not given or refused? Why? @ -None Did you discuss the management of the patient with other professionals (prof salcido i.e. , PA, WATER SUPERVISOR, lab, RT, psych nurse, social contact worker, shirrer, teacher, driver license reviewing officer, welfare case worker)? Give summary @ -Spoke with EPS and they evaluated the patient and determined that the patient did need psych evaluation but also probably was going through withdrawal from alcohol which I agreed with. I spoke with sound physicians agreed to admit the patient Was smoking cessation discussed for >3mins.? @ -No Was critical care preformed (if so, how long)? @ -No Were there social determinants of health that impacted care today? How? (Homelessness, low income, unemployed, alcoholism, drug addiction, transportation, low edu. Level, literacy, decrease access to med. care, correction, rehab)? @ -No Was there de-escalation of care discussed even if they declined (Discuss DNR or withdrawal of care, Hospice)? DNR status @ -No What co-morbidities impacted this encounter? (DM, HTN, Smoking, COPD, CAD, Cancer, CVA, ARF, Chemo, Hep., AIDS, mental health diagnosis, sleep apnea, morbid obesity)? @ -None Was patient admitted / discharged? Hospital course, mention meds given and route, prescriptions, significant lab abnormalities, going to OR and other pertinent info. @ -Patient was given Ativan and she did settle down and she will be admitted to [facility] physicians for alcohol withdrawal and have a psych consult Undiagnosed new problem with uncertain prognosis? @ -No Drug Therapy requiring intensive monitoring for toxicity (Heparin, Nitro, Insulin, Cardizem)? @ -No Were any procedures done? @ -No Diagnosis/symptom? @ -Suicidal ideations Acute, or Chronic, or Acute on Chronic? @ -Acute Uncomplicated (without systemic symptoms) or Complicated (systemic symptoms)? @ -Complicated Side effects of treatment? @ -No Exacerbation, Progression, or Severe Exacerbation? @ -No Poses a threat to life or bodily function? How? (Chest pain, [place], [place], pneumonia, PE, COPD, DKA, ARF, appy, cholecystitis, CVA, Diverticulitis, Homicidal, Suicidal, threat to staff... and all critical care pts) @ -Yes patient could potentially kill himself Diagnosis/symptom? @ -Alcohol withdrawal Acute, or Chronic, or Acute on Chronic? @ -Acute Uncomplicated (without systemic symptoms) or Complicated (systemic symptoms)? @ -Complicated Side effects of treatment? @ -None Exacerbation, Progression, or Severe Exacerbation] @ -No Poses a threat to life or bodily function? @ -No - Lab Data Result diagrams: 04/27/24 16:38 04/27/24 16:38 Lab Results 04/27/24 04/27/24 04/27/24 Range/Units 16:38 16:38 16:44 WBC 5.2 (3.8-10.6) k/uL RBC 5.76 H (3.80-5.40) m/uL Hgb 18.5 H (11.4-16.0) gm/dL Hct 54.9 H (34.0-46.0) % MCV 95.4 (80.0-100.0) fL MCH 32.2 (25.0-35.0) pg MCHC 33.8 (31.0-37.0) g/dL RDW 13.2 (11.5-15.5) % Plt Count 215 (150-450) k/uL MPV 8.0 Neutrophils % 60 % Lymphocytes % 32 % Monocytes % 5 % Eosinophils % 1 % Basophils % 1 % Neutrophils # 3.1 (1.3-7.7) k/uL Lymphocytes # 1.7 (1.0-4.8) k/uL Monocytes # 0.3 (0-1.0) k/uL Eosinophils # 0.0 (0-0.7) k/uL Basophils # 0.0 (0-0.2) k/uL Sodium 138 (137-145) mmol/L Potassium 3.3 L (3.5-5.1) mmol/L Chloride 103 (98-107) mmol/L Carbon Dioxide 14 L (22-30) mmol/L Anion Gap 21 mmol/L BUN 8 (7-17) mg/dL Creatinine 0.85 (0.52-1.04) mg/dL Est GFR (CKD-EPI)AfAm 86 (>60 ml/min/1.73 sqM) Est GFR (CKD-EPI)NonAf 75 (>60 ml/min/1.73 sqM) Glucose 130 H (74-99) mg/dL Calcium 9.5 (8.4-10.2) mg/dL Magnesium 2.2 (1.6-2.3) mg/dL Total Bilirubin 0.7 (0.2-1.3) mg/dL AST 45 H (14-36) U/L ALT 25 (4-34) U/L Alkaline Phosphatase 141 H (38-126) U/L Total Protein 8.4 H (6.3-8.2) g/dL Albumin 5.4 H (3.5-5.0) g/dL Urine Opiates Screen Not Detected (NotDetected) Ur Oxycodone Screen Not Detected (NotDetected) Urine Methadone Screen Not Detected (NotDetected) Ur Barbiturates Screen Not Detected (NotDetected) U Tricyclic Antidepress Not Detected (NotDetected) Ur Phencyclidine Scrn Not Detected (NotDetected) Ur Amphetamines Screen Not Detected (NotDetected) U Methamphetamines Scrn Not Detected (NotDetected) U Benzodiazepines Scrn Not Detected (NotDetected) Urine Cocaine Screen Not Detected (NotDetected) U Marijuana (THC) Screen Detected H (NotDetected) Disposition Clinical Impression: Suicidal ideation, Alcohol withdrawal Disposition: ADMITTED IP TO THIS [facility] Referrals: Dianne Lyman MD [Primary Care Provider] - 1-2 days Time of Disposition: 20:38
[2024-04-27] MEDS: SODIUM CHLORIDE 0.9% 1,000 ML IV ONE ×2 (17:00→21:31)
[2024-04-27 17:11] LABS: Amphetamine Screen,Urine Not Detected (NotDetected); Barbiturate Screen,Urine Not Detected (NotDetected); Benzodiazepines Screen,Urine Not Detected (NotDetected); Cocaine Screen,Urine Not Detected (NotDetected); Methadone Screen, Urine Not Detected (NotDetected); Opiate Screen,Urine Not Detected (NotDetected); Oxycodone Screen, Urine Not Detected (NotDetected); Phencyclidine Screen,Urine Not Detected (NotDetected); Tricyclic Antidepressant,Urine Not Detected (NotDetected); Urn Cannabinoid Scrn Detected (NotDetected)
[2024-04-27 17:27] LABS: Basophils % (A) 1 %; Eosinophils % (A) 1 %; HCT 54.9 % (34.0-46.0); HGB 18.5 gm/dL (11.4-16.0); Lymphocytes # (A) 1.7 k/uL (1.0-4.8); Lymphocytes % (A) 32 %; MCH 32.2 pg (25.0-35.0); MCHC 33.8 g/dL (31.0-37.0); MCV 95.4 fL (80.0-100.0); Monocytes # (A) 0.3 k/uL (0-1.0); Monocytes % (A) 5 %; Neutrophils # (A) 3.1 k/uL (1.3-7.7); Neutrophils % (A) 60 %; Platelet Count 215 k/uL (150-450); RBC 5.76 m/uL (3.80-5.40); RDW 13.2 % (11.5-15.5); WBC 5.2 k/uL (3.8-10.6)
[2024-04-27 17:28] LABS: ALT 25 U/L (4-34); AST 45 U/L (14-36); African American GFR (CKD) 86 (>60 ml/min/1.73 sqM); Albumin 5.4 g/dL (3.5-5.0); Alkaline Phosphatase 141 U/L (38-126); Anion Gap 21 mmol/L; Blood Urea Nitrogen 8 mg/dL (7-17); Calcium 9.5 mg/dL (8.4-10.2); Carbon Dioxide 14 mmol/L (22-30); Chloride 103 mmol/L (98-107); Glucose 130 mg/dL (74-99); Magnesium 2.2 mg/dL (1.6-2.3); Non-African American GFR(CKD) 75 (>60 ml/min/1.73 sqM); Potassium 3.3 mmol/L (3.5-5.1); Sodium 138 mmol/L (137-145); Total Bilirubin 0.7 mg/dL (0.2-1.3); Total Protein 8.4 g/dL (6.3-8.2)
[2024-04-27] MEDS: LORazepam 2 MG/ML INJ IV STA ×2 (17:50→18:50)
[2024-04-27] MEDS: SODIUM CHLORIDE 0.9% 500 ML 500 ML IV ONE (19:14)
--- NOTE | 2024-04-27 19:47 | CT ---
EXAMINATION TYPE: CT brain wo con DATE OF EXAM: 04/27/2024 7:40 PM COMPARISON: Previous CT brain study dated 10/19/2023.. CLINICAL INDICATION: Female, 58 years old with history of Altered mental status, AMS. TECHNIQUE: Brain: Axial CT images of the brain were obtained with coronal and sagittal reformats created and rev iewed. Contrast used: None. Oral contrast used: None. CT DLP: 1138.9 mGycm, Automated exposure control for dose reduction was used. FINDINGS: Brain: Extra-axial spaces: No abnormal extra-axial fluid collections. Ventricular system: Within normal limits Cerebral parenchyma: No acute intraparenchymal hemorrhage or mass effect. The ortiz-white junction is well differentiated. Cerebellum: Unremarkable. Mass effect: No evidence of midline shift. Intracranial vasculature: unremarkable Soft tissues: Normal. Calvarium/osseous structures: No depressed skull fracture. Paranasal sinuses and mastoid air cells: Mild scattered paranasal sinus disease. Visualized orbits: Orbital contents are intact. IMPRESSION: No acute intracranial process. [facility], , 04/27/2024 7:45 PM
[2024-04-27] MEDS: POTASSIUM CHLORIDE ER 20 MEQ TAB.ER PO STA (20:15)
[2024-04-27] MEDS ORDERED: LORazepam 2 MG/ML INJ IV PRN ×2 (20:52)
--- NOTE | 2024-04-27 23:14 | P.HPIM ---
History of Present Illness H&P Date: 04/27/24 History of present illness; 58-year-old female with PMH of diabetes mellitus and fibromyalgia. The patient was brought to the emergency department by EMS and most of the history provided to the emergency department was from EMS. EMS stated the called them because the patient was complaining of abdominal pain at home and was curled up in the position. When seen at bedside, she denies any current abdominal pain, however states that the pain is episodic and midline below the umbilicus. When the pain is occurring she rates it as a 10/10, however when it subsides she feels no discomfort at all. She associates the pain with eating and drinking carbonated pop. She states that she cannot assess any particular type of food that causes the pain, she considers all food to cause the same pain and discomfort. She states the episodes last 5-10 minutes. Additionally, she notes a history of fibromyalgia which at 1 point was controlled with Cymbalta and gabapentin, however the patient had multiple episodes of overdosing which led her to no longer taking those medications. She states that the combination of the abdominal pain along with the pain she endorses secondary to her fibromyalgia becomes unbearable at times. Patient had expressed self-harm ideation to EMS and ED staff which the patient attributes to her pain. She states that at this time she has no intention of harming herself, has not thought about harming herself or others, and denies having any weapons in the home. She is a former smoker, however states that she quit 6 months ago. She is an everyday drinker, stating she has "a few" beers nightly to help control her fibromyalgia, some nights when the pain is worse she states that she drinks tequila as well. Notes drinking multiple shots of hard liquor every morning. She does state that her fibromyalgia is currently flaring up, however the abdominal pain is not present at this time. Patient denying prior history of alcohol withdrawal or DTs but appears to have been admitted to the hospital multiple times this year for DTs. As per ED provider and documentation, the patient was tremulous and restless upon arrival. Labratory review: -WBCs 5.2, hemoglobin 18.5, hematocrit 54.9, platelet 215; sodium 138, potassium 3.3, BUN 8, creatinine 0.85, glucose 130, AST 45, ALT 25, alkaline phosphatase 141 -Urine toxicology screen positive for marijuana Imaging: -CT brain done in the ED showed no acute intracranial process Vitals: -Blood pressure 153/88, heart rate 124, respiratory rate 18, SpO2 97% on room air Patient admitted to internal medicine service REVIEW OF SYSTEMS: CONSTITUTIONAL: No fever, no malaise, no fatigue. HEENT: No recent visual problems or hearing problems. Denied any sore throat. CARDIOVASCULAR: No chest pain, orthopnea, PND, no palpitations, no syncope. PULMONARY: No shortness of breath, no cough, no hemoptysis. GASTROINTESTINAL: No diarrhea, no nausea, no vomiting, no abdominal pain. NEUROLOGICAL: No headaches, no weakness, no numbness. HEMATOLOGICAL: Denies any bleeding or petechiae. GENITOURINARY: Denies any burning micturition, frequency, or urgency. MUSCULOSKELETAL/RHEUMATOLOGICAL: Denies any joint pain, swelling, or any muscle pain. ENDOCRINE: Denies any polyuria or polydipsia. The rest of the 14-point review of systems is negative. PHYSICAL EXAMINATION: GENERAL: The patient is alert and oriented x3, not in any acute distress. Disheveled HEENT: No scleral icterus. No conjunctival pallor. Normocephalic, atraumatic. CARDIOVASCULAR: S1 and S2 present. No murmurs, rubs, or gallops. PULMONARY: Chest is clear to auscultation, no wheezing or crackles. ABDOMEN: Soft, nontender, normoactive bowel sounds. No palpable organomegaly. Mild lower abdominal distention noted without tenderness. MUSCULOSKELETAL: No joint swelling or deformity. EXTREMITIES: No cyanosis, clubbing, or pedal edema. NEUROLOGICAL: Gross neurological examination did not reveal any focal deficits. SKIN: No rashes. Assessment and plan 58-year-old female with PMH of diabetes mellitus and fibromyalgia presents to the emergency department following an episode of apparent abdominal pain at home, fibromyalgia and reports of suicidal ideation. Discussed with the ED, she is admitted to the internal medicine service for further evaluation. #Alcohol abuse, impending withdrawal -Last drink this am -Multiple admissions this year for EtOH withdrawal -Cardiac monitoring -Folate and MV; Thiamine IM and PO -Daily electrolytes -CIWA protocol with Ativan IVP -Fall precautions -Social work consulted #Fibromyalgia -Formerly maintained on Cymbalta and fibromyalgia -History of overdose with those treatments, which caused her to no longer use medication #Suicidal ideation -Psychiatry consulted -Modified diet to suicide precautions #Hypokalemia -Replace and monitor #Transaminitis, mild -Monitor CMP GI prohylaxis: Protonix 40 mg po qd DVT prophylaxis: Lovenox 40 mg subq Dictation was produced using [employer] dictation software. please excuse any grammatical, word or spelling errors. Past Medical History Past Medical History: Diabetes Mellitus Additional Past Medical History / Comment(s): back pain, migraines, fibromyalgianh, history of seizures when withdrawling from "tramadol" or another medicaiton "years ago" per 10/19/23 History of Any Multi-Drug Resistant Organisms: None Reported Past Surgical History: Orthopedic Surgery Past Psychological History: Anxiety, Depression Smoking Status: Current every day smoker Past Alcohol Use History: Daily Past Drug Use History: Cocaine, Marijuana Medications and Allergies Home Medications Medication Instructions Recorded Confirmed Type Ondansetron Odt [Zofran ODT] 4 mg PO Q12H PRN 10/20/23 12/11/23 History Folic Acid 1 mg PO DAILY #30 tab 10/23/23 12/11/23 Rx Thiamine [Vitamin B-1] 100 mg PO DAILY #30 tab 10/23/23 12/11/23 Rx Pantoprazole [Protonix] 40 mg PO DAILY 11/17/23 12/11/23 History DULoxetine HCL [Cymbalta] 20 mg PO DAILY #30 cap 11/20/23 12/11/23 Rx Famotidine [Pepcid] 20 mg PO DAILY tab 11/20/23 12/11/23 Rx Metoprolol Succinate (ER) [Toprol 25 mg PO DAILY #30 tab 11/20/23 12/11/23 Rx XL] cloNIDine HCL [Catapres] 0.1 mg PO BID #60 tab 11/20/23 12/11/23 Rx Albuterol Inhaler [Ventolin Hfa 1 puff INHALATION RT-QID PRN 12/11/23 12/11/23 History Inhaler] Multivitamins, Thera [Multivitamin 1 tab PO DAILY 12/11/23 12/11/23 History (formulary)] predniSONE See Taper PO DIRECTED 12/11/23 12/11/23 History Allergies Allergy/AdvReac Type Severity Reaction Status Date / Time No Known Allergies Allergy Verified 12/11/23 14:08 Physical Exam Vitals: Vital Signs Temp Pulse Resp BP Pulse Ox 04/27/24 21:19 98.5 F 124 H 18 153/88 97 04/27/24 16:35 98.5 F 143 H 20 113/55 98 Intake and Output 04/27/24 04/27/24 04/27/24 06:59 14:59 22:59 Other: Weight 56.699 kg Results CBC & Chem 7: 04/27/24 16:38 04/27/24 16:38 Labs: Abnormal Lab Results - Last 24 Hours (Table) 04/27/24 04/27/24 04/27/24 Range/Units 16:38 16:38 16:44 RBC 5.76 H (3.80-5.40) m/uL Hgb 18.5 H (11.4-16.0) gm/dL Hct 54.9 H (34.0-46.0) % Potassium 3.3 L (3.5-5.1) mmol/L Carbon Dioxide 14 L (22-30) mmol/L Glucose 130 H (74-99) mg/dL AST 45 H (14-36) U/L Alkaline Phosphatase 141 H (38-126) U/L Total Protein 8.4 H (6.3-8.2) g/dL Albumin 5.4 H (3.5-5.0) g/dL U Marijuana (THC) Screen Detected H (NotDetected)
[2024-04-27] MEDS: LORazepam 1 MG TAB PO PRN (23:47)
[2024-04-28] MEDS: IBUPROFEN 600 MG TAB PO PRN (06:46)
[2024-04-28] MEDS: PANTOPRAZOLE 40 MG TABLET PO SCH (06:46)
[2024-04-28] MEDS: MULTIVITAMINS, THERA 1 EACH TAB PO SCH (09:10)
[2024-04-28] MEDS: ENOXAPARIN 40 MG/0.4 ML SYRINGE SQ SCH (09:10)
[2024-04-28] MEDS: THIAMINE 100 MG TAB PO SCH (09:10)
[2024-04-28] MEDS: FOLIC ACID 1 MG TAB PO SCH (09:10)
[2024-04-28] MEDS: LORazepam 2 MG/ML INJ IV PRN (10:06)
[2024-04-28 10:35] LABS: ALT 17 U/L (8-44); AST 31 U/L (13-35); Albumin 3.8 g/dL (3.8-4.9); Albumin/Globulin Ratio 2.24 Ratio (1.60-3.17); Alkaline Phosphatase 96 U/L (41-126); BUN/Creat Ratio 12.17 Ratio (12.00-20.00); Blood Urea Nitrogen 7.3 mg/dL (9.0-27.0); Calcium 8.1 mg/dL (8.7-10.3); Carbon Dioxide 18.9 mmol/L (21.6-31.8); Chloride 104 mmol/L (96-109); Globulin 1.7 g/dL (1.6-3.3); Glucose 94 mg/dL (70-110); Magnesium 1.8 mg/dL (1.5-2.4); Phosphorus 2.3 mg/dL (2.4-5.1); Potassium 3.3 mmol/L (3.5-5.5); Sodium 136 mmol/L (135-145); Total Bilirubin 0.9 mg/dL (0.3-1.2); Total Protein 5.5 g/dL (6.2-8.2)
[2024-04-28 12:07] LABS: HCT 44.6 % (34.0-46.0); MCH 30.9 pg (25.0-35.0); MCHC 31.8 g/dL (31.0-37.0); MCV 97.3 fL (80.0-100.0); Mean Platelet Volume 9.5; Platelet Count 177 k/uL (150-450); RBC 4.59 m/uL (3.80-5.40); RDW 13.2 % (11.5-15.5); WBC 5.6 k/uL (3.8-10.6)
[2024-04-28 12:08] LABS: HGB 14.2 gm/dL (11.4-16.0)
[2024-04-28] MEDS ORDERED: Potassium Replacement Protocol 1 EACH MISC MISCELLANE PRN (12:09)
[2024-04-28] MEDS: POTASSIUM CHLORIDE 10 MEQ in WATER FOR INJECTION 1 100ML.BAG IVPB SCH (12:23)
[2024-04-28] MEDS ORDERED: ACETAMINOPHEN TAB 325 MG TAB PO PRN (14:26)
[2024-04-28] MEDS: KETOROLAC 15 MG/ML 1 ML VIAL IVP PRN (15:30)
--- NOTE | 2024-04-28 15:53 | P.CN ---
Psychiatric Consult - . Consult:: IDENTIFYING DATA: This patient is a 58 year old woman, resides with , presently on disability. REASON FOR REFERRAL: Psychiatry was consulted for suicidal ideation. HISTORY OF PRESENT ILLNESS: Nita Randall is a 58-year-old woman with a history of depression and alcohol use disorder, in the context of diabetes mellitus and fibromyalgia, who presented to the emergency department via EMS due to abdominal pain at home that was unmanageable. In the ambulance ride to the ospital the patient was reportedly asked about suicidal ideation and suggested they open the doors of the moving vehicle and allow the gurney to roll out. This recall of the statements was shared by Ms. Randall who was seen at the bedside this afternoon. Her was also present and provided some history and context. Ms. Randall has a significant history of depression that has been worse for the last 3 years. She has found it hard to function in part due to chronic pain (abdominal/left hip) and the impact on depression on her sense of motivation and engagement in life. She explained that she stopped seeking medical care about 5 years ago and has since relied on alcohol to cope. Several times during today's visit she lamented the lack of options avaialable to her for pain mangement and expressed frustration that she was not being offered suitable alternatives for pain management. She describes experiencing decreased sleep, anhedonia, frequent guilt and ruminating about perceived mistakes, low energy, impaired concentration, and decreased appetite. She describes feeling frequent worry and fears that "something really bad will happen". She finds it hard to focus on things happening in the present due to this preoccupation about the next bad thing that may take place. Ms. Strong and her describe many years of experiencing significant psychosocial stressors including their own experience being unhoused, their daughters losing custody of their children, 1 daughter being incarcerated, having to leave their residence due to long for cement raid, among other challenges. While they do presently reside in a environment they feel safe in with a friend this has been challenging to secure historically. Ms. Amalia mercer endorses rare experiences of hearing voices or seeing things that her does not perceive. These experiences are infrequent and historically have been associated with periods of starting or stopping medications abruptly. She has experienced suicidal ideation and notes that this is something that tends to happen when she feels particularly stressed or having difficulty coping with her present circumstances. She denies a history of manic episodes; while she has stayed up all night and had labile mood at times this did not last for the duration or severity as would be expected in john. Ms. Randall does recall having made statements to the driver's license reviewing officer prior to arrival at the hospital. She explained that the intensity of abdominal pain leads her to feel frustrated and the last time she had thoughts about suicide were in summer 2023. She denies having identified method or intent or plan at that time. Similarly she denied intent or plan for self directed violence or suicide prior to arrival at the hospital. She denies suicidal ideation today and denies identified method, intent, or plan for harming herself. She did express hopefulness about returning to medical care to get her pain addressed and figuring out what is causing her intense, episodic abdominal pain and distress. She denies homicidal ideation, intent, or plan. As mentioned above, Mr. Chisholm has a history of substance abuse. She stopped using opiates about 5 years ago and also discontinued use of meth. She quit smoking 8 months ago. She does use THC on a daily basis. She drinks about 2, 24 ounce beers on a daily basis; 1 first thing in the morning and the other in the evening. This is down from her prior average of 4-8 beers per day. She does occasionally take 2 shots of liquor in addition to the beer consumption. She explained that without other means of managing her pain she feels that this is the only reasonable option. She has considered prior admission to inpatient rehab to help transition off alcohol, however, she does not feel this is an option at this time as it would leave her pain unaddressed. Additionally she has not previously tried naltrexone, acamprosate, or other medications to help with alcohol use disorder. She is not presently interested in these at this time as she feels consuming 3 drinks per day is reasonable. We did discuss that the medical definition of number of drinks per day does account for the serving size and as such she does drink an average of 6 drinks per day given the size of the beers. PAST PSYCHIATRIC HISTORY: Patient has a history of depression and was previously treated with Cymbalta prescribed by her PCP many years ago. This medication was helpful but it was discontinued after she no longer engaged in care. She denies any history of inpatient psychiatric admission. She reports having had an interrupted suicide attempt approximately 35 years ago at which time she was planning to hang herself but she had a spiritual moment that urged her from that action. Additionally she reports considering jumping into the river twice in the past once in 1988 and again in 2017 both of these attempts were interrupted through intervention of others who provided support in that moment. She did not seek psychiatric care after these interrupted attempts. PAST MEDICAL HISTORY: Diabetes mellitus, fibromyalgia ALLERGIES: No known allergies CHEMICAL DEPENDENCY HISTORY: as per HPI. FAMILY PSYCHIATRIC/SUBSTANCE USE HISTORY: No known family history of completed suicide. Extensive family history of alcohol misuse. SOCIAL HISTORY: Patient presently resides with her of 39 years and their mutual friend. She is not presently employed and does receive disability income on a monthly basis. She denies access to firearms. She and her share 3 adult children; their oldest daughter is presently incarcerated secondary to drug-related offenses. They have 18 grandchildren, 13 of whom are not in the custody of their parents due to drug abuse. is presently working and does not are not any income. He had previously experienced homelessness. MENTAL STATUS EXAM: General Appearance: Patient appears to be older than stated age is alert, reasonably pleasant, and cooperative. Patient appears to have fair hygiene and grooming wearing hospital gown with intermittent eye contact. Behavior: Patient is experiencing notable psychomotor agitation secondary to various discomforts including abdominal pain and IV related pain during the visit. She was sitting up in bed and intermittently moving around as the discomfort intensified and waned. Additionally, she had movements of her trunk, head, and neck that were mildly rhythmic in nature. Speech: Patient's speech is fluent and non-pressured. Articulation significantly impaired due to loss of dentition. Mood/Affect: Patient reports their mood is "depressed", affect is generally euthymic. Suicidality/Homicidality: Patient denies having any suicidal or homicidal ideation intent or plan. Perceptions: Patient denies any visual hallucinations and denies any auditory hallucinations Though content/process: There is no evidence of any delusional thought content and thought process is linear and goal-directed. Memory and concentration: AOX3, grossly intact for the purposes of this session. Able to recall recent and remote events with relative accuracy. Judgment and insight: Questionable insight regarding the potential harms of ongoing alcohol consumption IMPRESSIONS: Alcohol withdrawal Alcohol use disorder, severe Unspecified depressive disorder (consider MDD) Cannabis use Opioid use disorder, in sustained remission Methamphetamine use, in sustained remission Ms. Nita Randall is a 58-year-old woman with a history of severe alcohol use disorder and depression, presently experiencing alcohol withdrawal, who presented to the emergency room due to unmanageable abdominal pain at home. During her visit today she shared that while she did make statements about having suicidal thoughts while in route to the hospital in the ambulance this was partially related to her frustration with her condition. She denies suicidal ideation, identified method, intent, or plan. She did express some future orientation regarding getting her pain issues and abdominal issues addressed so that she can feel better and participate in life again. We discussed several available options to her regarding helping decrease alcohol use. She is pre- contemplative about making these changes as she feels drinking is her only source of pain management at this time. We also discussed the option to resume a medication which have been helpful for her depression in the past; she did not want to pursue this at this time. In light of her history of prior suicide attempts, ongoing substance misuse, and significant psychosocial stressors, she is at a chronically elevated risk for self directed violence. She does have several protective factors including a supportive partner, future orientation, desire to reengage in healthcare, and access to that care if she desires. While human behavior cannot be predicted, her present risk of self directed violence is assessed to be low in light of the factors mentioned above. PLAN: -At this time patient DOES NOT meet criteria for inpatient psychiatric admission. -Would recommend the following medication changes/additions: - Patient is not presently interested in medication for management of alcohol use disorder. However, if that were to change can consider Naltrexone 50 mg daily to decrease binge drinking and alcohol craving. - Additionally, patient previously found Cymbalta helpful for mood symptoms; can consider starting 30 mg daily at time of discharge if patient is amenable. -Continue CIWA protocol with PRN Ativan for alcohol withdrawal. Continue to monitor vital signs. -Can discontinue 1:1 sitter for suicide precautions at this time as patient is not currently an imminent threat to themselves; however, can retain sitter if thought to be beneficial for patient's overall safety and well-being while hospitalized -auto salvage worker to provide patient with outpatient mental health/psychiatry resources for appropriate follow up upon discharge -Transfer Pumper spoke with patient about substance abuse and the harmful effects on medical and mental health, patient verbally understood but was pre-contemplative about seeking treatment. -Shared information with patient and her spouse about the 9-8-8 crisis line and returning to the ER if suicidal ideation were to return or intensify after discharge. -auto salvage worker to provide patient substance use treatment resources including AA/NA meetings in the community. -auto salvage worker to provide patient with access line number to call for inpatient substance rehab -Communicated plan to patient's nurse -Psychiatry will sign off at this time -Please contact with any questions.
--- NOTE | 2024-04-28 17:25 | P.PN ---
Subjective Progress Note Date: 04/28/24 Hospital course: Patient is a 58-year-old female with a past medical history of diabetes mellitus, chronic back pain, and fibromyalgia.The patient was brought to the emergency department via EMS with a chief complaint of alcohol withdraw and suicidal ideations. Patient denying having suicidal plan but states her pain is so severe she has had suicidal ideations. Patient reports uncontrolled 10 out of 10 pain and she has been self-medicating with alcohol because she was seeing too many doctors and had too many prescriptions and could not keep up with all the follow-up appointments because she does not have a car or transportation. She reports beginning her day with multiple shots of liquor and the remainder the day and her amount of alcohol consumed is based upon her pain that she is experiencing. She reports the more pain she is not the more she will self medicate. Upon arrival to our facility, patient underwent evaluation in the emergency department. Vital signs upon arrival show blood pressure 113/55, heart rate 143, respiratory rate 20, temp 98.5 F, and SpO2 of 98% on room air. No EKG was completed at time of arrival. Labs completed and reviewed. CBC show ing elevated hemoglobin of 18.5, BMP showing hypokalemia with potassium of 3.3, hypocarbia with bicarb of 14, and elevated anion gap of 21. Blood glucose 130. Liver enzymes showing elevated AST of 45 and alkaline phosphatase of 141. Physical exam: Patient seen and fully evaluated at bedside this morning. She is reporting continued uncontrolled fibromyalgia pain and chronic back pain. Orders placed for Tylenol and Toradol. Patient remains in suicide precautions with sitter at bedside. Patient currently denying suicidal ideations stating that she is just wanting to have her pain controlled. Vital signs reviewed and stable. General: Nontoxic, no distress and appears stated age. Disheveled appearance. Derm: Skin warm and dry, normal coloration for ethnicity. Head: Atraumatic, normocephalic and symmetric. Eyes: EOM's intact, no lid lag, and anicteric sclera Mouth: no lip lesions, mucus membranes moist Cardiovascular: regular rate and rhythm with normal S1S2, no murmur, positive posterior tibial pulses bilaterally, and cap refill < 2 seconds. Lungs: Respirations even, regular, and unlabored on room air. Lungs CTA bilaterally, no rhonchi, no rales, no wheezing, and no accessory muscle usage. Abdominal: soft, nontender to palpation, no guarding, no appreciable organomegal y Ext: ROM intact. No gross muscle atrophy, no edema, no contractures Neuro: Speech clear, face symmetrical and CN II-XII grossly intact with no noted focal neuro deficits Psych: Alert and oriented to person, place, time, and situation. Appropriate and pleasant affect. Assessment and Plan of Care: Alcohol withdrawal High anion gap metabolic acidosis Elevated liver enzymes Hypokalemia -Continue monitoring of CIWA scores and patient to be medicated with Ativan 0.5 mg every 4 hours as needed for CIWA score of 4-5, Ativan 1 mg every 4 hours for CIWA score of 6-7, Ativan 2 mg every 3 hours CIWA score of 8-9, and Ativan 2 mg every 2 hours forr CIWA score of 10 or greater. -Continue gentle IV fluid hydration with 0.9% normal saline at 100 cc/h. -Thiamine 100 mg daily, and Multivitamin daily, and Folate 1 mg daily -Seizure, fall, aspiration, and elopement precautions in place. -Urine drug screen positive for marijuana -Continued close monitoring of electrolytes and replace as needed. -Telemetry monitoring. Suicidal ideations -Consult placed to psychiatry, appreciate recommendations. -Maintain suicide precautions with strict one-to-one sitter continuously. Uncontrolled chronic pain Fibromyalgia -Continue symptomatic care and pain management with Tylenol 650 mg every 6 hours as needed for mild pain, and Toradol 15 mg IVP as needed for moderate to severe pain. Data and imaging reviewed: -Morning labs ordered and reviewed. CBC unremarkable showing resolution of polycythemia with hemoglobin decreasing from 18.5 down to 14.2 after IV fluid hydration. BMP showing hypokalemia with potassium of 3.3 and continued high anion gap metabolic acidosis with chloride of 104, bicarb of 18.9, and anion gap of 13.10. Blood glucose 94. Magnesium 1.8. Liver profile unremarkable. Lipase normal findings at 28. -Vital signs reviewed. Blood pressure 153/98, heart rate 110, respiratory rate 18, temp 98.9 F, and SpO2 of 96% on room air. CODE STATUS: Full code DVT prophylaxis: Lovenox Anticipated discharge date: Pending clinical course Anticipated discharge place: Pending clinical course Patient was seen independently by Nurse Pracitioner. This document was prepared using [employer] dictation software. Please allow for errors in coagulating operator, while rare they do occur. Vineet Norman NP rendered care for this patient independently, reviewed the findings and plan as documented in the note above and agree with plan. I did not physically speak with or examine the patient on this date. Objective - Vital Signs Vital signs: Vital Signs Temp 98.9 F 04/28/24 07:08 Pulse 110 H 04/28/24 07:08 Resp 18 04/28/24 07:08 BP 153/98 04/28/24 07:08 Pulse Ox 96 04/28/24 07:08 FiO2 Intake & Output 04/27/24 04/28/24 04/28/24 18:59 06:59 18:59 Weight 56.699 kg 56.699 kg Other: # Voids 1 - Labs CBC & Chem 7: 04/28/24 04:04 04/28/24 04:04 Labs: Abnormal Lab Results - Last 24 Hours (Table) 04/27/24 04/27/24 04/27/24 Range/Units 16:38 16:38 16:44 RBC 5.76 H (3.80-5.40) m/uL Hgb 18.5 H (11.4-16.0) gm/dL Hct 54.9 H (34.0-46.0) % Potassium 3.3 L (3.5-5.1) mmol/L Carbon Dioxide 14 L (22-30) mmol/L Glucose 130 H (74-99) mg/dL AST 45 H (14-36) U/L Alkaline Phosphatase 141 H (38-126) U/L Total Protein 8.4 H (6.3-8.2) g/dL Albumin 5.4 H (3.5-5.0) g/dL U Marijuana (THC) Screen Detected H (NotDetected)
[2024-04-28] MEDS: SODIUM CHLORIDE 0.9% 1,000 ML IV SCH (18:35)
[2024-04-29 04:29] LABS: HCT 45.9 % (34.0-46.0); HGB 14.2 gm/dL (11.4-16.0); Hypochromasia Marked; MCH 31.8 pg (25.0-35.0); MCHC 30.9 g/dL (31.0-37.0); Macrocytosis Slight; Mean Platelet Volume 7.8; Platelet Count 143 k/uL (150-450); RBC 4.47 m/uL (3.80-5.40); RDW 12.6 % (11.5-15.5); WBC 3.3 k/uL (3.8-10.6)
[2024-04-29 04:30] LABS: MCV 102.7 fL (80.0-100.0)
[2024-04-29 09:27] LABS: ALT 17 U/L (8-44); AST 28 U/L (13-35); Albumin 3.6 g/dL (3.8-4.9); Albumin/Globulin Ratio 2.25 Ratio (1.60-3.17); Alkaline Phosphatase 84 U/L (41-126); BUN/Creat Ratio 10.67 Ratio (12.00-20.00); Blood Urea Nitrogen 6.4 mg/dL (9.0-27.0); Calcium 8.3 mg/dL (8.7-10.3); Carbon Dioxide 20.4 mmol/L (21.6-31.8); Chloride 109 mmol/L (96-109); Globulin 1.6 g/dL (1.6-3.3); Glucose 103 mg/dL (70-110); Magnesium 1.8 mg/dL (1.5-2.4); Potassium 3.8 mmol/L (3.5-5.5); Sodium 139 mmol/L (135-145); Total Bilirubin 0.9 mg/dL (0.3-1.2); Total Protein 5.2 g/dL (6.2-8.2)
--- NOTE | 2024-04-29 17:51 | P.PN ---
Subjective Progress Note Date: 04/29/24 Hospital course: Patient is a 58-year-old female with a past medical history of diabetes mellitus, chronic back pain, and fibromyalgia.The patient was brought to the emergency department via EMS with a chief complaint of alcohol withdraw and suicidal ideations. Patient denying having suicidal plan but states her pain is so severe she has had suicidal ideations. Patient reports uncontrolled 10 out of 10 pain and she has been self-medicating with alcohol because she was seeing too many doctors and had too many prescriptions and could not keep up with all the follow-up appointments because she does not have a car or transportation. She reports beginning her day with multiple shots of liquor and the remainder the day and her amount of alcohol consumed is based upon her pain that she is experiencing. She reports the more pain she is not the more she will self medicate. Upon arrival to our facility, patient underwent evaluation in the emergency department. Vital signs upon arrival show blood pressure 113/55, heart rate 143, respiratory rate 20, temp 98.5 F, and SpO2 of 98% on room air. No EKG was completed at time of arrival. Labs completed and reviewed. CBC show ing elevated hemoglobin of 18.5, BMP showing hypokalemia with potassium of 3.3, hypocarbia with bicarb of 14, and elevated anion gap of 21. Blood glucose 130. Liver enzymes showing elevated AST of 45 and alkaline phosphatase of 141. Physical exam: Patient seen and fully evaluated at bedside this morning. She is reporting continued uncontrolled fibromyalgia pain and chronic back pain along with difficulties with ambulation. Vital signs reviewed and stable. General: Nontoxic, no distress and appears stated age. Disheveled appearance. Derm: Skin warm and dry, normal coloration for ethnicity. Head: Atraumatic, normocephalic and symmetric. Eyes: EOM's intact, no lid lag, and anicteric sclera Mouth: no lip lesions, mucus membranes moist Cardiovascular: regular rate and rhythm with normal S1S2, no murmur, positive posterior tibial pulses bilaterally, and cap refill < 2 seconds. Lungs: Respirations even, regular, and unlabored on room air. Lungs CTA bilaterally, no rhonchi, no rales, no wheezing, and no accessory muscle usage. Abdominal: soft, nontender to palpation, no guarding, no appreciable organomegaly Ext: ROM intact. No gross muscle atrophy, no edema, no contractures Neuro: Speech clear, face symmetrical and CN II-XII grossly intact with no noted focal neuro deficits Psych: Alert and oriented to person, place, time, and situation. Appropriate and pleasant affect. Assessment and Plan of Care: Patient currently admitted being treated for medical assisted detox secondary to alcohol withdrawal. Patient was also evaluated by psychiatry for reports of suicidal ideations and cleared from psychiatry perspective. Initial plan was for possible discharge today however RN reports patient having difficulties with ambulation and patient to be evaluated by PT/OT for possible placement in SNF. Alcohol withdrawal High anion gap metabolic acidosis Elevated liver enzymes Hypokalemia -Continue monitoring of CIWA scores and patient to be medicated with Ativan 0.5 mg every 4 hours as needed for CIWA score of 4-5, Ativan 1 mg every 4 hours for CIWA score of 6-7, Ativan 2 mg every 3 hours CIWA score of 8-9, and Ativan 2 mg every 2 hours forr CIWA score of 10 or greater. -Continue gentle IV fluid hydration with 0.9% normal saline at 100 cc/h. -Thiamine 100 mg daily, and Multivitamin daily, and Folate 1 mg daily -Seizure, fall, aspiration, and elopement precautions in place. -Urine drug screen positive for marijuana -Continued close monitoring of electrolytes and replace as needed. -Telemetry monitoring. Suicidal ideations -Patient was evaluated by psychiatry clearing patient from psychiatry perspective for discharge. -One-to-one sitter discontinued by psychiatrist Uncontrolled chronic pain Fibromyalgia -Continue symptomatic care and pain management with Tylenol 650 mg every 6 hours as needed for mild pain, and Toradol 15 mg IVP as needed for moderate to severe pain. -PT/OT consulted secondary to RN reports of patient having difficulty with ambulation. Data and imaging reviewed: -Morning labs ordered and reviewed. CBC leukopenia with WBC count of 3.3 macrocytosis with MCV of 102.7, and thrombocytopenia with platelet count of 143. BMP showing hypocarbia with bicarb of 20.4 otherwise normal findings. Blood glucose 103. Magnesium 1.8. Liver profile normal findings with the exception of hypoalbuminemia with albumin of 3.6. -Vital signs reviewed. Blood pressure 144/97, heart rate 99, respiratory rate 18, temp 98.2 F, and SpO2 of 97% on room air. CODE STATUS: Full code DVT prophylaxis: Lovenox Anticipated discharge date: Pending clinical course Anticipated discharge place: Pending clinical course Patient was seen independently by Nurse Pracitioner. This document was prepared using [employer] dictation software. Please allow for errors in utilization specialist, while rare they do occur. Vineet Norman LIVESTOCK INSPECTOR rendered care for this patient independently, reviewed the findings and plan as documented in the note above and agree with plan. I did not physically speak with or examine the patient on this date. Objective - Vital Signs Vital signs: Vital Signs Temp 98.2 F 04/29/24 07:07 Pulse 99 04/29/24 07:07 Resp 18 04/29/24 07:07 BP 144/97 04/29/24 07:07 Pulse Ox 97 04/29/24 07:07 FiO2 Intake & Output 04/28/24 04/29/24 04/29/24 18:59 06:59 18:59 Other: # Voids 1 - Labs CBC & Chem 7: 04/29/24 03:08 04/29/24 03:08 Labs: Abnormal Lab Results - Last 24 Hours (Table) 04/28/24 04/29/24 Range/Units 04:04 03:08 WBC 3.3 L (3.8-10.6) k/uL MCV 102.7 H D (80.0-100.0) fL MCHC 30.9 L (31.0-37.0) g/dL Plt Count 143 L (150-450) k/uL Potassium 3.3 L (3.5-5.5) mmol/L Carbon Dioxide 18.9 L (21.6-31.8) mmol/L Anion Gap 13.10 H (4.00-12.00) mmol/L BUN 7.3 L (9.0-27.0) mg/dL Calcium 8.1 L (8.7-10.3) mg/dL Phosphorus 2.3 L (2.4-5.1) mg/dL Total Protein 5.5 L (6.2-8.2) g/dL
[2024-04-30 08:06] VITALS: BP 131/82; PULSE 109; RESP 18; TEMP 97.9
--- NOTE | 2024-04-30 11:33 | P.DS ---
Providers Date of admission: 04/27/24 20:53 Expected date of discharge: 04/30/24 Attending physician: Ceferino Clements MD Consults: 04/27/24 20:39 Consult Physician Urgent Consulting Provider: Brandon Reilly Consult Reason/Comments: Suicidal ideations Do you want consulting provider notified?: Yes Primary care physician: Stated None Hospital Course: Discharge Diagnosis: Alcohol withdrawal. CIWA score is 1. Pt doing well and states that she is ready to go home. Patient denies wanting to go to drug and alcohol rehabilitation facility at this time.. She was provided with outpatient resources including community resources, local AA meetings, counseling, and therapy list. High anion gap metabolic acidosis. Resolved with IV fluid hydration. Elevated liver enzymes, secondary to daily alcohol abuse. Improved. Hypokalemia. Resolved Suicidal ideations upon arrival. Patient was evaluated by psychiatry clearing patient from psychiatry perspective for discharge. Patient denies suicidal ideations or plan. Uncontrolled chronic pain Fibromyalgia Hospital Course: Patient is a 58-year-old female with a past medical history of diabetes mellitus, chronic back pain, and fibromyalgia.The patient was brought to the emergency department via EMS with a chief complaint of alcohol withdraw and suicidal ideations. Patient denying having suicidal plan but states her pain is so severe she has had suicidal ideations. Patient reports uncontrolled 10 out of 10 pain and she has been self-medicating with alcohol because she was seeing too many doctors and had too many prescriptions and could not keep up with all the follow-up appointments because she does not have a car or transportation. She reports beginning her day with multiple shots of liquor and the remainder the day and her amount of alcohol consumed is based upon her pain that she is experiencing. She reports the more pain she is not the more she will self medicate. Upon arrival to our facility, patient underwent evaluation in the emergency department. Vital signs upon arrival show blood pressure 113/55, heart rate 143, respiratory rate 20, temp 98.5 F, and SpO2 of 98% on room air. No EKG was completed at time of arrival. Labs completed and reviewed. CBC showing elevated hemoglobin of 18.5, BMP showing hypokalemia with potassium of 3.3, hypocarbia with bicarb of 14, and elevated anion gap of 21. Blood glucose 130. Liver enzymes showing elevated AST of 45 and alkaline phosphatase of 141. Patient was admitted under our services and underwent medical assisted detox. She was evaluated by psychiatrist and cleared from psychiatry perspective for discharge stating patient does not meet inpatient criteria at this time. Patient is medically optimized and was evaluated by PT/OT recommending home with home care. Patient set up with [facility] home care services. She is medically stable for discharge and strongly encouraged to follow-up with local PCP to establish primary care and possible referral to pain management. Patient was advised to avoid any and all alcohol use. Patient was provided with outpatient resources including community resources available to her, local AA meetings, counseling, and counseling/therapy list. Physical exam: Vital signs reviewed and stable. General: Nontoxic, no distress and appears stated age. Disheveled appearance. Derm: Skin warm and dry, normal coloration for ethnicity. Head: Atraumatic, normocephalic and symmetric. Eyes: EOM's intact, no lid lag, and anicteric sclera Mouth: no lip lesions, mucus membranes moist Cardiovascular: regular rate and rhythm with normal S1S2, no murmur, positive posterior tibial pulses bilaterally, and cap refill < 2 seconds. Lungs: Respirations even, regular, and unlabored on room air. Lungs CTA bilaterally, no rhonchi, no rales, no wheezing, and no accessory muscle usage. Abdominal: soft, nontender to palpation, no guarding, no appreciable organomegaly Ext: ROM intact. No gross muscle atrophy, no edema, no contractures Neuro: Speech clear, face symmetrical and CN II-XII grossly intact with no noted focal neuro deficits Psych: Alert and oriented to person, place, time, and situation. Appropriate and pleasant affect. A total of 34 minutes of time were spent preparing this complex discharge summary. Pt was discharged on 04/30/2024 at 9:57 AM. Patient was seen independently by Nurse Practitioner. This document was prepared using [employer] dictation software. Please allow for errors in marriage and family teacher while rare they do occur. Vineet Norman NP rendered care for this patient independently, reviewed the findings and plan as documented in the note above. I did not physically speak with or examine the patient on this date. Patient Condition at Discharge: Stable Plan - Discharge Summary Discharge Rx Participant: No New Discharge Prescriptions: New Folic Acid 1 mg PO DAILY 30 Days #30 tab Thiamine [Vitamin B-1] 100 mg PO DAILY 30 Days #30 tab Dicyclomine [Bentyl] 10 mg PO QID PRN #30 capsule PRN Reason: Abdominal Distention Lidocaine 4% Patch 1 patch TOPICAL DAILY #30 patch Ibuprofen [Motrin] 600 mg PO Q6HR PRN #30 tab PRN Reason: Pain Multivitamins, Thera [Multivitamin (formulary)] 1 each PO DAILY 30 Days #30 tab Discharge Medication List Dicyclomine [Bentyl] 10 mg PO QID PRN #30 capsule 04/30/24 [Rx] Folic Acid 1 mg PO DAILY 30 Days #30 tab 04/30/24 [Rx] Ibuprofen [Motrin] 600 mg PO Q6HR PRN #30 tab 04/30/24 [Rx] Lidocaine 4% Patch 1 patch TOPICAL DAILY #30 patch 04/30/24 [Rx] Multivitamins, Thera [Multivitamin (formulary)] 1 each PO DAILY 30 Days #30 tab 04/30/24 [Rx] Thiamine [Vitamin B-1] 100 mg PO DAILY 30 Days #30 tab 04/30/24 [Rx] Follow up Appointment(s)/Referral(s): [facility] [NON-STAFF] - 05/20/24 3:30 pm (Please schedule appointment prior to discharge for follow up and establishment of care and managment of chronic pain) Patient Instructions/Handouts: Abuse of Alcohol (DC), Acute Abdominal Pain (DC), Suicide Prevention (DC) Activity/Diet/Wound Care/Special Instructions: Activity: As tolerated. Take breaks as needed. Diet: Heart healthy and carb consistent diet. Avoid salts, or foods with hidden salts such as canned or boxed foods and frozen dinners. Extra salt makes your heart work harder and traps the fluid in your body for longer. Special Instructions: Take all of your medications as directed and remember to keep all of your doctor's appointments and follow-up as needed. As discussed at bedside it is strongly recommended that you avoid any and all alcohol use. Thank you for allowing us to participate in your care, it was truly a pleasure having you for our patient!!! Discharge/Stand Alone Forms: AA [facility], Outpatient Counseling, Inp Substance Abuse Facilities Discharge Disposition: HOME WITH HOME HEALTH SERVICES
== END 2024-04-30 15:01 | disposition home health service (06) | DRG 775 ==
LOC: EC 16:29 → 3SCARD 20:53 → 4SSUR 21:34
PROVIDERS: ADMIT Internal Medicine; ATTEND Internal Medicine
DX: F10.239 Alcohol dependence with withdrawal, unspecified (principal); R45.851 Suicidal ideations; E87.20 Acidosis, unspecified; E11.9 Type 2 diabetes mellitus without complications; E87.6 Hypokalemia; F32.9 Major depressive disorder, single episode, unspecified; D75.1 Secondary polycythemia; R74.8 Abnormal levels of other serum enzymes; M79.7 Fibromyalgia; R74.01 Elevation of levels of liver transaminase levels; Z79.899 Other long term (current) drug therapy; Z87.891 Personal history of nicotine dependence; Z91.51 Personal history of suicidal behavior; Z63.72 Alcoholism and drug addiction in family
CPT/HCPCS: 36415; 70450; 80053; 80306; 82075; 83690; 83735; 84100; 85025; 85027; 96361; 96374; 96376; 99285

== ENCOUNTER 2024-07-01 13:50 | Emergency (ER) | payer OTHER ==
[2024-07-01] MEDS: HALOPERIDOL LACTATE 5 MG/ML 1 ML VIAL IM STA (14:35)
--- NOTE | 2024-07-01 14:42 | ED ---
General Adult HPI - General Chief complaint: Psychiatric Symptoms Stated complaint: Mental Health Time Seen by Provider: 07/01/24 13:52 Source: patient, EMS, RN notes reviewed Mode of arrival: EMS Limitations: altered mental status - History of Present Illness Initial comments: Patient is a 59-year-old female presenting to the emergency department for [facility] evaluation. Patient has a difficult time providing history. Patient states she is not on medication and has not been for a long time. Patient gets upset when asked about suicidal or homicidal thoughts however denies both. Patient states she has had hallucinations however not currently is hallucinating. No reported new physical complaints. - Related Data Home Medications Medication Instructions Recorded Confirmed No Known Home Medications 07/01/24 07/01/24 Allergies Allergy/AdvReac Type Severity Reaction Status Date / Time No Known Allergies Allergy Verified 07/01/24 14:42 Review of Systems ROS Statement: Those systems with pertinent positive or pertinent negative responses have been documented in the HPI. ROS Other: All systems not noted in ROS Statement are negative. Constitutional: Denies: fever Eyes: Denies: eye pain ENT: Denies: ear pain Respiratory: Denies: dyspnea Cardiovascular: Denies: chest pain Psychiatric: Reports: as per HPI, auditory hallucinations, visual hallu cinations. Denies: homicidal thoughts, suicidal thoughts Past Medical History Past Medical History: Diabetes Mellitus Additional Past Medical History / Comment(s): back pain, migraines, fibromyalgianh, history of seizures when withdrawling from "tramadol" or another medicaiton "years ago" per 10/19/23 History of Any Multi-Drug Resistant Organisms: None Reported Past Surgical History: Orthopedic Surgery Additional Past Surgical History / Comment(s): left hip 2020 Past Psychological History: Anxiety, Depression Smoking Status: Current every day smoker Past Alcohol Use History: Daily Past Drug Use History: Cocaine, Marijuana General Exam Limitations: no limitations General appearance: alert Head exam: Present: atraumatic Eye exam: Present: normal appearance Neck exam: Present: normal inspection Respiratory exam: Present: normal lung sounds bilaterally Cardiovascular Exam: Present: regular rate, normal rhythm GI/Abdominal exam: Present: soft. Absent: tenderness Extremities exam: Present: normal inspection Neurological exam: Present: alert Psychiatric exam: Present: anxious Expanded Focused psych exam: Present: paranoid, restlessness, flight of ideas, other (Labile) Skin exam: Present: normal color Course Vital Signs 07/01/24 07/01/24 13:59 19:12 Temperature 98.1 F 97.7 F Pulse Rate 118 H 137 H Respiratory 22 20 Rate Blood Pressure 178/111 183/101 O2 Sat by Pulse 97 97 Oximetry Procedures - Restraint - Face to Face Restraint Occurrence 1 Patient's Immediate Situation: Endangers self safety, Endangers others' safety, Endangers staff safety Patient's Reaction to the Intervention: Uncooperative, Fearful Patient's Medical & Behavioral Condition: Awake, Alert Need to Continue or Terminate Restraint or Seclusion: Continue Face to Face Eval of Restraint Date: 07/01/24 Face to Face Eval of Restraint Time: 14:38 Medical Decision Making - Medical Decision Making Was pt. sent in by a medical professional or institution (, PA, SPLUNK DASHBOARD DEVELOPER, urgent care, hospital, or usp...) When possible be specific @ -No Did you speak to anyone other than the patient for history (EMS, parent, family, police, friend...)? What history was obtained from this source @ -No Did you review nursing and triage notes (agree or disagree)? Why? @ -I reviewed and agree with nursing and triage notes Were old charts reviewed (outside hosp., previous admission, EMS record, old EKG, old radiological studies, urgent care reports/EKG's, usp records)? Report findings @ -No old charts were reviewed Differential Diagnosis (chest pain, altered mental status, abdominal pain women, abdominal pain men, vaginal bleeding, weakness, fever, dyspnea, syncope, headache, dizziness, GI bleed, back pain, seizure, CVA, palpatations, mental health, musculoskeletal)? @ -Differential Mental Health Depression, anxiety, bipolar, psychosis, schizophrenia, borderline personality, situational depression, adjustment disorder, behavioral disorder, brain tumor, malingering, substance abuse, encephalopathy, medication reaction, dementia, hypothyroidism, degenerative neurologic disorder, lupus.... This is not meant to be all-inclusive list EKG interpreted by me (3pts min.). @ -As above X-rays interpreted by me (1pt min.). @ -None done CT interpreted by me (1pt min.). @ -None done U/S interpreted by me (1pt. min.). @ -None done What testing was considered but not performed or refused? (CT, X-rays, U/S, labs)? Why? @ -None What meds were considered but not given or refused? Why? @ -None Did you discuss the management of the patient with other professionals (susi pedro i.e. , PA, SPLUNK DASHBOARD DEVELOPER, lab, RT, psych nurse, social worker health services, cutting and splicing supervisor, teacher, corporate responsibility officer, case checker)? Give summary @ -Case was discussed with psychiatric nurse Was smoking cessation discussed for >3mins.? @ -No Was critical care preformed (if so, how long)? @ -No Were there social determinants of health that impacted care today? How? (Homelessness, low income, unemployed, alcoholism, drug addiction, transportation, low edu. Level, literacy, decrease access to med. care, group home, rehab)? @ -No Was there de-escalation of care discussed even if they declined (Discuss DNR or withdrawal of care, Hospice)? DNR status @ -No What co-morbidities impacted this encounter? (DM, HTN, Smoking, COPD, CAD, Cancer, CVA, ARF, Chemo, Hep., AIDS, mental health diagnosis, sleep apnea, morbid obesity)? @ -History of alcohol Was patient admitted / discharged? Hospital course, mention meds given and r oute, prescriptions, significant lab abnormalities, going to OR and other pertinent info. @ -Patient presents with abnormal behaviors and alcohol intoxication. Patient seen by mental health for disposition Undiagnosed new problem with uncertain prognosis? @ -No Drug Therapy requiring intensive monitoring for toxicity (Heparin, Nitro, Insulin, Cardizem)? @ -No Were any procedures done? @ -No Diagnosis/symptom? @ -Alcohol intoxication, psychosis Acute, or Chronic, or Acute on Chronic? @ -Acute, acute Uncomplicated (without systemic symptoms) or Complicated (systemic symptoms)? @ -Default Side effects of treatment? @ -No Exacerbation, Progression, or Severe Exacerbation? @ -No Poses a threat to life or bodily function? How? (Chest pain, USA, PA, pneumonia, PE, COPD, DKA, ARF, appy, cholecystitis, CVA, Diverticulitis, Homicidal, Suicidal, threat to staff... and all critical care pts) @ -No - Lab Data Result diagrams: 07/01/24 20:30 Lab Results 07/01/24 07/01/24 07/01/24 Range/Units 15:48 19:16 20:30 WBC 3.6 L (3.8-10.6) k/uL RBC 4.22 (3.80-5.40) m/uL Hgb 13.4 (11.4-16.0) gm/dL Hct 40.4 (34.0-46.0) % MCV 95.9 D (80.0-100.0) fL MCH 31.8 (25.0-35.0) pg MCHC 33.2 (31.0-37.0) g/dL RDW 13.4 (11.5-15.5) % Plt Count 144 L (150-450) k/uL MPV 7.1 Neutrophils % 64 % Lymphocytes % 23 % Monocytes % 9 % Eosinophils % 2 % Basophils % 0 % Neutrophils # 2.3 (1.3-7.7) k/uL Lymphocytes # 0.8 L (1.0-4.8) k/uL Monocytes # 0.3 (0-1.0) k/uL Eosinophils # 0.1 (0-0.7) k/uL Basophils # 0.0 (0-0.2) k/uL POC Glucose (mg/dL) 121 H (70-110) mg/dL POC Glu Medical Scientist ID [place] E[place]ira Urine Opiates Screen Not Detected (NotDetected) Ur Oxycodone Screen Not Detected (NotDetected) Urine Methadone Screen Not Detected (NotDetected) Ur Barbiturates Screen Not Detected (NotDetected) U Tricyclic Antidepress Not Detected (NotDetected) Ur Phencyclidine Scrn Not Detected (NotDetected) Ur Amphetamines Screen Not Detected (NotDetected) U Methamphetamines Scrn Not Detected (NotDetected) U Benzodiazepines Scrn Not Detected (NotDetected) Urine Cocaine Screen Not Detected (NotDetected) U Marijuana (THC) Screen Detected H (NotDetected) Disposition Clinical Impression: Alcohol intoxication Is patient prescribed a controlled substance at d/c from ED?: No Referrals: None,Stated [Primary Care Provider] - 1-2 days
[2024-07-01 16:05] LABS: Amphetamine Screen,Urine Not Detected (NotDetected); Barbiturate Screen,Urine Not Detected (NotDetected); Benzodiazepines Screen,Urine Not Detected (NotDetected); Cocaine Screen,Urine Not Detected (NotDetected); Methadone Screen, Urine Not Detected (NotDetected); Opiate Screen,Urine Not Detected (NotDetected); Oxycodone Screen, Urine Not Detected (NotDetected); Phencyclidine Screen,Urine Not Detected (NotDetected); Tricyclic Antidepressant,Urine Not Detected (NotDetected); Urn Cannabinoid Scrn Detected (NotDetected)
[2024-07-01 19:18] LABS: Glucose,Whole Blood 121 mg/dL (70-110)
[2024-07-01 20:40] LABS: Basophils % (A) 0 %; Eosinophils # (A) 0.1 k/uL (0-0.7); Eosinophils % (A) 2 %; HCT 40.4 % (34.0-46.0); HGB 13.4 gm/dL (11.4-16.0); Lymphocytes # (A) 0.8 k/uL (1.0-4.8); Lymphocytes % (A) 23 %; MCH 31.8 pg (25.0-35.0); MCHC 33.2 g/dL (31.0-37.0); Mean Platelet Volume 7.1; Monocytes # (A) 0.3 k/uL (0-1.0); Monocytes % (A) 9 %; Neutrophils # (A) 2.3 k/uL (1.3-7.7); Neutrophils % (A) 64 %; Platelet Count 144 k/uL (150-450); RBC 4.22 m/uL (3.80-5.40); RDW 13.4 % (11.5-15.5); WBC 3.6 k/uL (3.8-10.6)
[2024-07-01 20:54] LABS: MCV 95.9 fL (80.0-100.0)
[2024-07-01 21:00] LABS: ALT 27 U/L (4-34); African American GFR (CKD) >90 (>60 ml/min/1.73 sqM); Albumin 4.7 g/dL (3.5-5.0); Amylase 60 U/L (30-110); Anion Gap 17 mmol/L; Blood Urea Nitrogen 3 mg/dL (7-17); Calcium 9.2 mg/dL (8.4-10.2); Carbon Dioxide 16 mmol/L (22-30); Chloride 99 mmol/L (98-107); Glucose 112 mg/dL (74-99); Lipase 89 U/L (23-300); Non-African American GFR(CKD) >90 (>60 ml/min/1.73 sqM); Sodium 132 mmol/L (137-145); Total Bilirubin 0.6 mg/dL (0.2-1.3); Total Protein 6.9 g/dL (6.3-8.2)
[2024-07-01 21:28] LABS: AST 45 U/L (14-36); Potassium 4.3 mmol/L (3.5-5.1)
[2024-07-01 21:29] LABS: Alkaline Phosphatase 84 U/L (38-126)
[2024-07-01 21:39] LABS: Influenza A Not Detected (Not Detectd); Influenza B Not Detected (Not Detectd); RSV Not Detected (Not Detectd)
[2024-07-01 23:31] VITALS: BP 148/75; PULSE 115; RESP 20; TEMP 98.2
== END 2024-07-01 23:44 ==
LOC: EC 13:50
DX: F10.129 Alcohol abuse with intoxication, unspecified (principal); F17.200 Nicotine dependence, unspecified, uncomplicated; Z11.52 Encounter for screening for COVID-19
CPT/HCPCS: 99285; 96372; 82075; 36415; 80053; 82150; 83690; 85025; 80306; 87636; J1630